=== PATIENT | male | born 1945 | race Caucasian/White ===

== ENCOUNTER → 2022-09-08 | Outpatient (CLI) | payer MEDICARE, OTHER ==
--- NOTE | 2022-09-09 00:17 | CT ---
EXAMINATION TYPE: CT angio abd aorta w/Runoff CT DLP: 1752.8 mGycm, Automated exposure control for dose reduction was used. DATE OF EXAM: 09/08/2022 3:27 PM COMPARISON: None CLINICAL INDICATION:Male, 76 years old with history of Z95.820; Wound left groin TECHNIQUE: Multiple thin slice sub-millimeter images were obtained through the abdomen, pelvis, and l ower extremities after administration of contrast. 3-D reconstructed images and maximum intensity pr ojection images were obtained of the abdomen, pelvis, and lower extremities. CT Contrast: Contrast used:100 cc mL of Isovue 370 with IV Contrast, Oral contrast used: None FINDINGS: CTA Abdomen and pelvis: The abdominal aorta does not demonstrate aneurysmal dilatation. Atherosclero tic plaquing is identified within the abdominal aorta. The origins of the superior mesenteric artery , renal arteries, inferior mesenteric artery, and celiac axis are patent. The iliac vessels are norm al in morphology. Mild atherosclerosis at the origin of the superior mesenteric artery and bilateral renal arteries. There is a patent right common iliac artery stent graft. The left external iliac terry ry is occluded. A stent graft is in place and is also included. There is a femoral-femoral bypass gra ft which is patent. There is phlegmonous change around the surgery site of the left common femoral ar soni near the femoral femoral bypass graft insertion. CTA Lower extremities: Right: The common femoral and superficial femoral arteries are patent. There is moderate to severe at herosclerotic plaque along the course of the arterial vasculature. There is a a stent graft in the mi ddle portion of the superficial femoral artery which is patent. Scattered areas of at least 70% steno sis along the course of the superficial femoral artery. The visualized popliteal artery is patent. Th ere is at least 50% stenosis at the adductor hiatus. The anterior and posterior tibial arteries are p atent. The distal portion of the anterior tibial artery is diminutive as it crosses the ankle. Both a nterior posterior tibial arteries cross the ankle joint. The peroneal artery is diminutive and pain. Left: The common femoral artery is patent. The unga superficial femoral artery is occluded with brien nt graft also occluded. Bypass graft extending from the proximal leg extending to the obturator arter y is patent. There is high-grade stenosis at the level of the popliteal artery just past the anastomo tic site of at least 50-70%. There is a diminutive appearance of the anterior tibial artery with mini mal flow visualized distally. The posterior tibial artery is patent. The peroneal artery is not clear ly visualized and may be occluded. LOWER CHEST: No evidence of focal consolidation, pneumothorax or pleural effusion. LIVER: Unremarkable GALLBLADDER AND BILE DUCTS: Gallstones layering in the gallbladder lumen. PANCREAS: Unremarkable. SPLEEN: Unremarkable. ADRENAL GLANDS: Unremarkable. KIDNEYS AND URETERS: No evidence of hydronephrosis or renal calculus. The ureters are unremarkable. PELVIS BLADDER: Unremarkable REPRODUCTIVE: Unremarkable. ABDOMEN & PELVIS STOMACH AND BOWEL: No evidence of bowel obstruction. Scattered colonic diverticula. PERITONEUM: No evidence of pneumoperitoneum or free fluid. MUSCULOSKELETAL: No acute osseous abnormalities LYMPH NODES: No gross evidence for lymphadenopathy. SOFT TISSUE/ABDOMINAL WALL: Unremarkable IMPRESSION: Abdomen: 1. 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 2. Patent right common iliac artery stent graft. 3. Patent femoral-femoral bypass graft. 4. Colonic diverticulosis. 5. Cholelithiasis. Left: 1. Soft tissue change around the left femoral bypass graft insertion to the left common femoral terry ry/superficial femoral artery bypass graft. Findings may represent retained correlate with any clinic al symptoms for signs of infection. 2. Occluded unga left superficial femoral artery and superficial femoral artery stent graft. 3. High-grade stenosis of the anastomotic site of the superficial femoral artery stent graft in the popliteal artery of at least 50-70%. 4. Diminutive appearance of the anterior tibial artery. 5. The posterior tibial artery crosses the ankle. 6. Diminutive peroneal artery. Right: 1. Scattered atherosclerosis of the superficial femoral artery with stent graft in place and patent. There is areas of high-grade at least 70% stenosis along the course of the superficial femoral arter y. 2. Diminutive distal portion and anterior tibial artery and peroneal artery. It is felt that the ant erior tibial artery does however crossing ankle. 3. Posterior tibial artery crosses the ankle.
== END | disposition home or self-care (01) ==
LOC: RADCTMAIN 13:28
PROVIDERS: ATTEND Surgery Vascular Surgery
DX: L98.491 Non-pressure chronic ulcer of skin of other sites limited to breakdown of skin (principal); E11.22 Type 2 diabetes mellitus with diabetic chronic kidney disease; I73.9 Peripheral vascular disease, unspecified; Z95.820 Peripheral vascular angioplasty status with implants and grafts
CPT/HCPCS: 82565; 84520; 75635; 36415; Q9967

== ENCOUNTER 2022-10-20 06:07 | Day surgery (SDC) | payer MEDICARE, OTHER ==
[2022-10-17 09:09] VITALS: BMI 25.4
[2022-10-20] MEDS ORDERED: SODIUM CHLORIDE 0.9% 1,000 ML IV ONE (07:00)
[2022-10-20 07:15] LABS: Glucose,Whole Blood 300 mg/dL (70-110)
[2022-10-20] MEDS ORDERED: ONDANSETRON 4 MG/2 ML VIAL ONE (07:21)
[2022-10-20] MEDS ORDERED: MIDAZOLAM 2 MG/2 ML VIAL ONE (07:24)
[2022-10-20] MEDS ORDERED: LIDOCAINE 2% INJ 20 MG/ML (2 ML VIAL) ONE (07:24)
[2022-10-20] MEDS ORDERED: SUCCINYLCHOLINE CHLORIDE 200 MG/10 ML VIAL IV ONE (07:24)
[2022-10-20] MEDS ORDERED: ePHEDrine 50 MG/ML 1 ML VIAL ONE (07:24)
[2022-10-20] MEDS ORDERED: fentaNYL (PF) 50 MCG/ML 2 ML AMP ONE (07:24)
[2022-10-20] MEDS ORDERED: PROPOFOL 10 MG/ML 20 ML VIAL IV ONE (07:24)
[2022-10-20] MEDS ORDERED: INSULIN ASPART (NovoLOG) 100 UNIT/ML VIAL SQ ONE (07:25)
[2022-10-20] MEDS ORDERED: ONDANSETRON 4 MG/2 ML VIAL IVP ONE (07:25)
[2022-10-20 07:29] LABS: Basophils % (A) 0 %; Eosinophils # (A) 0.3 k/uL (0-0.7); Eosinophils % (A) 6 %; HCT 43.1 % (39.0-53.0); HGB 14.2 gm/dL (13.0-17.5); Lymphocytes # (A) 0.9 k/uL (1.0-4.8); Lymphocytes % (A) 20 %; MCH 28.4 pg (25.0-35.0); MCV 86.2 fL (80.0-100.0); Mean Platelet Volume 8.7; Monocytes # (A) 0.3 k/uL (0-1.0); Monocytes % (A) 5 %; Neutrophils # (A) 3.1 k/uL (1.3-7.7); Neutrophils % (A) 67 %; Platelet Count 168 k/uL (150-450); RDW 15.3 % (11.5-15.5); WBC 4.7 k/uL (3.8-10.6)
[2022-10-20 07:53] LABS: Calcium 9.8 mg/dL (8.4-10.2); Potassium 4.2 mmol/L (3.5-5.1)
[2022-10-20] MEDS ORDERED: ceFAZolin 2 GM in SODIUM CHLORIDE 0.9% 500 ML 500 ML IRRIGATION ONE (08:05)
--- NOTE | 2022-10-20 08:24 | P.GSHP ---
History of Present Illness H&P Date: 10/20/22 Chief Complaint: chronic left groin wound 77 year old gentleman with history of aortobifemoral and femoral-femoral artery bypass graft several months ago at a different facility has had a chronic left groin wound for months that hasn't healed and also developed hypergranular tissue. He presents today for excision and debridement of the left groin wound. He denies any fevers, chills, chest pain or shortness of breath. He underwent CTA which demonstrated no evidence of pseudoaneurysm or abscess in the area. - Review of Systems All systems: negative Past Medical History Past Medical History: Cancer, Diabetes Mellitus, Deep Vein Thrombosis (DVT), GERD/Reflux, Hyperlipidemia, Hypertension, Skin Disorder, Sleep Apnea/CPAP/BIPAP Additional Past Medical History / Comment(s): Hx bladder cancer 10-12 yrs ago. Hx DVT left leg X7 and right leg X2 in September 2021. "Precanerous skin problems on head and arms, get flaky skin and sores at times, no problems right now". "No CPAP use in quite some time". History of Any Multi-Drug Resistant Organisms: None Reported Past Surgical History: Bladder Surgery Additional Past Surgical History / Comment(s): Left leg stents and bypass, right leg stents, cataracts removed. Past Anesthesia/Blood Transfusion Reactions: No Reported Reaction Past Psychological History: Anxiety, Depression Smoking Status: Former smoker Past Alcohol Use History: Daily Additional Past Alcohol Use History / Comment(s): Quit smoking 17 yrs ago. Drink s 7 beers and 5-6 mixed drinks weekly. Past Drug Use History: None Reported - Past Family History Father Family Medical History: Cancer Additional Family Medical History / Comment(s): Bladder cancer. Medications and Allergies Home Medications Medication Instructions Recorded Confirmed Type Ammonium Lactate Cream [Lac-Hydrin 1 applic TOPICAL BID PRN 10/17/22 10/20/22 History 12% Cream] Atorvastatin [Lipitor] 40 mg PO DAILY 10/17/22 10/20/22 History Empagliflozin [Jardiance] 25 mg PO DAILY 10/17/22 10/20/22 History Escitalopram Oxalate [Lexapro] 20 mg PO DAILY 10/17/22 10/20/22 History Fenofibric Acid (Choline) 135 mg PO DAILY 10/17/22 10/20/22 History [Trilipix] Ginkgo Biloba (Unknown Dose) 1 tab PO DAILY 10/17/22 10/20/22 History Insulin Aspart [NovoLOG Flexpen] 8 units SQ TID-W/MEALS 10/17/22 10/20/22 History Insulin Detemir (Levemir) [Levemir] 24 unit SQ HS 10/17/22 10/20/22 History Losartan Potassium [Cozaar] 100 mg PO DAILY 10/17/22 10/20/22 History Multivitamins, Thera [Multivitamin 1 tab PO DAILY 10/17/22 10/20/22 History (formulary)] Mv-Mn/Om3/Dha/Epa/Fish/Lut/Eligio 1 each PO DAILY 10/17/22 10/20/22 History [Ocuvite Adult 50 Plus Softgel] [place]-3/Dha/Epa/Fish Oil [Fish Oil 1 each PO DAILY 10/17/22 10/20/22 History 1,000 mg Softgel] Omeprazole Magnesium [PriLOSEC OTC] 20 mg PO DAILY 10/17/22 10/20/22 History Ozempic (Unknown Dose) 1 dose SQ CRAIG 10/17/22 10/20/22 History Rivaroxaban [Xarelto] 15 mg PO DAILY 10/17/22 10/20/22 History Vitamin E (Unknown Dose) 1 tab PO DAILY 10/17/22 10/20/22 History atenoloL 100 mg PO DAILY 10/17/22 10/20/22 History fluorouraciL [Efudex] 1 applic TOPICAL DIRECTED PRN 10/17/22 10/20/22 History Allergies Allergy/AdvReac Type Severity Reaction Status Date / Time chlorhexidine Allergy Itching Verified 10/20/22 06:48 morphine Allergy Anxiety Verified 10/20/22 06:48 Surgical - Exam Vital Signs Temp Pulse Resp BP Pulse Ox 97.4 F L 65 16 165/78 97 10/20/22 07:15 10/20/22 07:15 10/20/22 07:15 10/20/22 07:15 10/20/22 07:15 left groin hypergranular tissue at the inferior aspect of the previous incision. No drainage. - General well developed, well nourished, no distress - Eyes PERRL - ENT normal pinna - Neck no masses - Respiratory normal expansion, normal respiratory effort - Cardiovascular Rhythm: regular - Abdomen Abdomen: soft, non tender - Genitourinary normal penis with no external lesions - Neurologic normal coordination, normal sensation - Musculoskeletal normal gait - Psychiatric oriented to time, oriented to person, oriented to place, speech is normal Results - Labs 10/20/22 07:11 10/20/22 07:11 Abnormal Lab Results - Last 24 Hours (Table) 10/20/22 10/20/22 10/20/22 Range/Units 07:11 07:11 07:14 Lymphocytes # 0.9 L (1.0-4.8) k/uL Carbon Dioxide 31 H (22-30) mmol/L BUN 33 H (9-20) mg/dL Creatinine 1.35 H (0.66-1.25) mg/dL Glucose 307 H (74-99) mg/dL POC Glucose (mg/dL) 300 H (70-110) mg/dL Diabetes panel 10/20/22 Range/Units 07:11 Sodium 141 (137-145) mmol/L Potassium 4.2 (3.5-5.1) mmol/L Chloride 101 (98-107) mmol/L Carbon Dioxide 31 H (22-30) mmol/L BUN 33 H (9-20) mg/dL Creatinine 1.35 H (0.66-1.25) mg/dL Glucose 307 H (74-99) mg/dL Calcium 9.8 (8.4-10.2) mg/dL Calcium panel 10/20/22 Range/Units 07:11 Calcium 9.8 (8.4-10.2) mg/dL Pituitary panel 10/20/22 Range/Units 07:11 Sodium 141 (137-145) mmol/L Potassium 4.2 (3.5-5.1) mmol/L Chloride 101 (98-107) mmol/L Carbon Dioxide 31 H (22-30) mmol/L BUN 33 H (9-20) mg/dL Creatinine 1.35 H (0.66-1.25) mg/dL Glucose 307 H (74-99) mg/dL Calcium 9.8 (8.4-10.2) mg/dL Adrenal panel 10/20/22 Range/Units 07:11 Sodium 141 (137-145) mmol/L Potassium 4.2 (3.5-5.1) mmol/L Chloride 101 (98-107) mmol/L Carbon Dioxide 31 H (22-30) mmol/L BUN 33 H (9-20) mg/dL Creatinine 1.35 H (0.66-1.25) mg/dL Glucose 307 H (74-99) mg/dL Calcium 9.8 (8.4-10.2) mg/dL Assessment and Plan Assessment: 1. Chronic left groin wound with hypergranular mass 2. History of aortobifemoral and fem-fem bypass 3. Claudication Plan: To OR for groin debridement and excision of mass
[2022-10-20 08:27] VITALS: TEMP 97
--- NOTE | 2022-10-20 08:30 | P.OP ---
Date of Procedure: 10/20/22 Preoperative Diagnosis: chronic left groin wound and mass Postoperative Diagnosis: Same Procedure(s) Performed: Left groin wound sharp debridement with excision of mass Anesthesia: ANDRE Surgeon: Meliton Crane Estimated Blood Loss (ml): 5 Pathology: other (Left groin skin and mass) Condition: stable Disposition: PACU Indications for Procedure: 77 year old male with history of aortobifemoral, fem-fem bypass who has had a chronic wound at the inferior aspect of his incision presents to the OR for debridement and excision of mass. Description of Procedure: After written and informed consent was obtained and all risks, benefits and complications were described the patient was brought to the operative suite and laid in a supine position. The area of the groin was prepped and draped in the usual sterile fashion. Antibiotics were given prior to incision. An incision was then created around the wound and dissection was carried down to the subcutaneous tissue and the mass was excised with electrocautery. There was a small stalk noted which was ligated. No bleeding was noted. The area was then irrigated with antibiotic solution and the incision was then closed in a 2 layer fashion. The skin was cleansed and dressings were placed. The patient tolerated the procedure well and was sent to PACU for recovery.
[2022-10-20 08:41] LABS: Glucose,Whole Blood 266 mg/dL (70-110)
[2022-10-20 08:58] VITALS: RESP 20
[2022-10-20 09:22] VITALS: BP 135/70; PULSE 58
== END 2022-10-20 09:41 | disposition home or self-care (01) ==
LOC: OR 06:07
PROVIDERS: ATTEND Surgery
DX: I97.89 Other postprocedural complications and disorders of the circulatory system, not elsewhere classified (principal); L02.214 Cutaneous abscess of groin; S31.109A Unspecified open wound of abdominal wall, unspecified quadrant without penetration into peritoneal cavity, initial encounter; I10 Essential (primary) hypertension; E78.5 Hyperlipidemia, unspecified; E11.36 Type 2 diabetes mellitus with diabetic cataract; E11.51 Type 2 diabetes mellitus with diabetic peripheral angiopathy without gangrene; K21.9 Gastro-esophageal reflux disease without esophagitis; G47.33 Obstructive sleep apnea (adult) (pediatric); F41.9 Anxiety disorder, unspecified; F32.A Depression, unspecified; Z85.51 Personal history of malignant neoplasm of bladder; Z86.718 Personal history of other venous thrombosis and embolism; Z87.891 Personal history of nicotine dependence; F10.20 Alcohol dependence, uncomplicated; Z79.84 Long term (current) use of oral hypoglycemic drugs; Z79.4 Long term (current) use of insulin; Z79.899 Other long term (current) drug therapy; Z79.01 Long term (current) use of anticoagulants; Z88.5 Allergy status to narcotic agent; Z88.8 Allergy status to other drugs, medicaments and biological substances
CPT/HCPCS: 88304; 80048; 85025; 20102; J2250; J0330; J0690; J2405; J3010; J2704; J2001

== ENCOUNTER 2023-02-23 07:30 | Inpatient (IN) | payer MEDICARE, OTHER ==
[2023-03-23] MEDS ORDERED: LIDOCAINE 1% (10MG/ML) FOR IV START INTRADERMA PRN (06:05)
[2023-03-23] MEDS ORDERED: droPERidol 5 MG/2 ML VIAL IVP ONE (06:05)
[2023-03-23] MEDS ORDERED: DEXAMETHASONE SOD PHOSPHATE 4 MG/ML 1 ML VIAL IV ONE (06:05)
[2023-03-23] MEDS ORDERED: ONDANSETRON 4 MG/2 ML VIAL IVP ONE (06:05)
[2023-03-23 06:42] LABS: Glucose,Whole Blood 229 mg/dL (70-110)
[2023-03-23] MEDS: LACTATED RINGERS 1,000 ML IV SCH (06:44)
[2023-03-23] MEDS ORDERED: fentaNYL (PF) 50 MCG/ML 2 ML AMP IV PRN (07:00)
[2023-03-23] MEDS ORDERED: INSULIN ASPART (NovoLOG) 100 UNIT/ML VIAL SQ ONE (07:00)
[2023-03-23] MEDS ORDERED: MIDAZOLAM HCL 10 MG/10 ML VIAL IVP ONE (07:10)
[2023-03-23] MEDS ORDERED: MIDAZOLAM 2 MG/2 ML VIAL IVP ONE (07:16)
[2023-03-23] MEDS ORDERED: HEPARIN SODIUM,PORCINE 10,000 UNIT/ML 1 ML VIAL ONE (07:30)
[2023-03-23] MEDS ORDERED: fentaNYL (PF) 50 MCG/ML 2 ML AMP ONE (07:30)
[2023-03-23] MEDS ORDERED: HYDROmorphone (PF) 1 MG/ML ONE (07:30)
[2023-03-23] MEDS ORDERED: HEPARIN SODIUM,PORCINE 5,000 UNIT/ML 1 ML VIAL ONE (07:30)
[2023-03-23] MEDS ORDERED: NEOSTIGMINE 1 MG/ML 10 ML VIAL ONE (07:30)
[2023-03-23] MEDS ORDERED: LIDOCAINE 1% INJ 10MG/ML (20 ML MDV) ONE (07:30)
[2023-03-23] MEDS ORDERED: SUCCINYLCHOLINE CHLORIDE 200 MG/10 ML VIAL IV ONE (07:30)
[2023-03-23] MEDS ORDERED: PROPOFOL 10 MG/ML 20 ML VIAL IV ONE (07:30)
[2023-03-23] MEDS ORDERED: GLYCOPYRROLATE 0.2 MG/ML 2 ML VIAL ONE (07:30)
[2023-03-23] MEDS ORDERED: ROCURONIUM 10 MG/ML (5 ML VIAL) IV ONE (07:30)
[2023-03-23] MEDS ORDERED: PHENYLEPHRINE-0.9% NACL SYG 1,000 MCG/10 ML SYRINGE ONE (07:30)
--- NOTE | 2023-03-23 07:31 | P.GSHP ---
History of Present Illness H&P Date: 03/23/23 Chief Complaint: left groin infection 77 year old male with history of left external iliac occlusion, fem-fem and left fem-popliteal artery bypass at another facility who has had drainage from the left groin for the last several months. He had episodes of thrombosis and open revascularization which ultimately never healed. Due to the persistent drainage he was treated with antibiotics for weeks without any improvement. He was taken back to the operating room for washout and closure but this opened once again and he still has a persistent draining sinus tract. CT imaging was obtained demonstrating patent bypasses but inflammation at the groin site with tract noted. He denies any fevers, chills, chest pain or shortness of breath. He states he can't do this forever and wants the groin fixed. - Review of Systems All systems: negative (what is mentioned in the PMH or HPI) Past Medical History Past Medical History: Cancer, Diabetes Mellitus, Deep Vein Thrombosis (DVT), GERD/Reflux, Hyperlipidemia, Hypertension, Skin Disorder, Sleep Apnea/CPAP/BIPAP, Vascular Disorder Additional Past Medical History / Comment(s): Current L groin infection, PAD, R lower extremity pain/claudication, recent "skipped heart beat"/states sent to cardiology for surgical clearance for this reason, IDDM, bladder cancer 10-12 yrs ago. Hx DVT left leg X7 and right leg X2 in September 2021, skin cancer with removal, get flakey skin and sores at times," no problems right now". "No CPAP use in quite some time". History of Any Multi-Drug Resistant Organisms: None Reported Past Surgical History: Bladder Surgery Additional Past Surgical History / Comment(s): Angiograms, multiple vascular surgeries bilateral legs including fem/fem bypass, fem/pop bypass with revision, R iliac stent, thrombectomy, cataract removals. Past Anesthesia/Blood Transfusion Reactions: No Reported Reaction Past Psychological History: Anxiety, Depression Smoking Status: Former smoker Past Alcohol Use History: Daily Additional Past Alcohol Use History / Comment(s): Pt started smoking in 1960 and quit 2006. Pt drinks beer, vodka and whiskey, one drink a day. Past Drug Use History: None Reported - Past Family History Father Family Medical History: Cancer Additional Family Medical History / Comment(s): Bladder cancer. Medications and Allergies Home Medications Medication Instructions Recorded Confirmed Type Atorvastatin [Lipitor] 40 mg PO DAILY 10/17/22 03/23/23 History Empagliflozin [Jardiance] 25 mg PO DAILY 10/17/22 03/23/23 History Escitalopram Oxalate [Lexapro] 20 mg PO DAILY 10/17/22 03/23/23 History Fenofibric Acid (Choline) 135 mg PO DAILY 10/17/22 03/23/23 History [Trilipix] Ginkgo Biloba (Unknown Dose) 1 tab PO DAILY 10/17/22 03/18/23 History Insulin Aspart [NovoLOG Flexpen] 8 units SQ TID-W/MEALS 10/17/22 03/23/23 History Insulin Detemir (Levemir) [Levemir] 35 unit SQ HS 10/17/22 03/23/23 History Losartan Potassium [Cozaar] 100 mg PO DAILY 10/17/22 03/23/23 History Multivitamins, Thera [Multivitamin 1 tab PO DAILY 10/17/22 03/18/23 History (formulary)] Mv-Mn/Om3/Dha/Epa/Fish/Lut/Eligio 1 each PO HS 10/17/22 03/18/23 History [Ocuvite Adult 50 Plus Softgel] [place]-3/Dha/Epa/Fish Oil [Fish Oil 1 each PO HS 10/17/22 03/18/23 History 1,000 mg Softgel] Omeprazole Magnesium [PriLOSEC OTC] 20 mg PO DAILY 10/17/22 03/23/23 History Ozempic (Unknown Dose) 1 dose SQ CRAIG 10/17/22 03/18/23 History Rivaroxaban [Xarelto] 15 mg PO DAILY 10/17/22 03/23/23 History Vitamin E (Unknown Dose) 1 tab PO QAM 10/17/22 03/18/23 History atenoloL 100 mg PO QAM 10/17/22 03/23/23 History Allergies Allergy/AdvReac Type Severity Reaction Status Date / Time chlorhexidine Allergy Itching Verified 03/23/23 06:11 morphine Allergy Anxiety Verified 03/23/23 06:11 Surgical - Exam Vital Signs Temp Pulse Resp BP Pulse Ox 98.0 F 74 16 141/66 97 03/23/23 06:38 03/23/23 06:38 03/23/23 06:38 03/23/23 06:38 03/23/23 06:38 - General well developed, well nourished, no distress - Eyes PERRL, normal ocular movement - ENT normal pinna - Neck no masses - Respiratory normal expansion, normal respiratory effort - Cardiovascular Rhythm: regular - Abdomen Abdomen: soft, non tender - Neurologic normal coordination, normal sensation - Musculoskeletal normal gait - Psychiatric oriented to time, oriented to person, oriented to place, speech is normal left groin with small persistent wound with turbid fluid output. Erythema noted left groin. palpable femoral pulse on the right. Palpable pulse in bypasses and left DP. Results - Labs Abnormal Lab Results - Last 24 Hours (Table) 03/23/23 Range/Units 06:40 POC Glucose (mg/dL) 229 H (70-110) mg/dL Assessment and Plan Assessment: Chronic left groin wound History of femoral-femoral and left femoral-popliteal bypass with PTFE graft Left external iliac occlusion Claudication with history of limb ischemia Plan: Long discussion had with the patient about options. Due to the PTFE grafts in place and persistent wound it is likely the grafts are chronically infected and will require explantation and revision. This is a high risk procedure and could cause ischemia to the leg which the patient understands and is agreeable. He may require complete revision and replacement of bypasses as well as possible iliac to popliteal bypass. To OR today.
--- NOTE | 2023-03-23 08:23 | XR ---
EXAMINATION TYPE: XR chest 1V portable DATE OF EXAM: 03/23/2023 7:41 AM COMPARISON: None TECHNIQUE: XR chest 1V portable Portable AP radiograph of the chest. CLINICAL INDICATION:Male, 77 years old with history of CENTRAL LINE PLACEMENT; FINDINGS: Lungs/Pleura: There is no evidence of pleural effusion, focal consolidation, or pneumothorax. Pulmonary vascularity: Unremarkable. Heart/mediastinum: Cardiomediastinal silhouette is unremarkable. Musculoskeletal: No acute osseous pathology. Other findings: None Lines/Tubes: Right internal jugular central venous catheter with distal tip at the low SVC. IMPRESSION: Right internal jugular central venous catheter with distal tip at the low SVC. No pneumothorax.
[2023-03-23] MEDS ORDERED: GELATIN SPONGE,ABSORB (LARGE) 1 EACH SPONGE TOPICAL ONE (09:21)
[2023-03-23] MEDS ORDERED: THROMBIN (BOVINE) 5,000 UNIT VIAL TOPICAL ONE (09:21)
[2023-03-23 09:45] LABS: Glucose,Whole Blood 229 mg/dL (70-110)
--- NOTE | 2023-03-23 10:50 | P.ANPRN ---
Procedure Note - Anesthesia - Invasive Line Right Central Line Time Out Performed: Yes ([id number]) Date of Procedure: 03/23/23 Time of Procedure: 07:11 Location of Patient: PreOp Preparation: Sterile Prep, Sterile Dressing Central Line Location: Internal Jugular (right double lumen IJ central line) Ultrasound Used: Yes Purpose - Visualization and Identification of Vasculature: Yes Needle Guage: 18g angio Image Stored and Saved: Yes Narrative: Central line placement per sterile protocol utilized. sterile protocol. +angio +cvp +jwire +uneventful dilation and introduction right IJ RANJEET. Lumens bled and flushed. no PTX
[2023-03-23] MEDS ORDERED: DEXTROSE 5%-LACTATED RINGERS 1,000 ML IV ONE (11:14)
[2023-03-23] MEDS ORDERED: HEPARIN SODIUM,PORCINE 10,000 UNIT in LACTATED RINGERS 1,000 ML IRRIGATION ONE (11:15)
[2023-03-23] MEDS ORDERED: LACTATED RINGERS 1,000 ML IV ONE (14:00)
--- NOTE | 2023-03-23 15:17 | P.OP ---
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 History of fem-fem and left fem-popliteal bypass Left external iliac artery occlusion Postoperative Diagnosis: same Procedure(s) Performed: Left groin exploration and explantation of infected portion of femoral-femoral and left femoral-popliteal bypass graft Revision of femoral-femoral and left femoral-popliteal bypass with cryovein Open thrombectomy of fem-fem and fem-popliteal bypass grafts Anesthesia: GETA Surgeon: Meliton Crane Template Reproduction Technician #1: Jose David Garzon Estimated Blood Loss (ml): 200 Pathology: other (infected portion of grafts) Condition: stable Disposition: PACU Indications for Procedure: 77 year old gentleman with history of fem-fem and left femoral popliteal artery bypass whom has been dealing with drainage and infection of the left groin presents today for revision of bypasses with cryovein graft. Operative Findings: Infected anastomoses in the left groin at the femoral artery with appearance of pseudoaneurysm Description of Procedure: After written and informed consent was obtained from the patient and all risks, benefits and complications were described the patient was brought to the ope rative suite and laid in a supine position. The area of the abdomen, groins and left lower extremity were prepped and draped in the usual sterile fashion. A timeout was performed in usual fashion and antibiotics were given prior to incision. A small incision was then created overlying the suprapubic area over the fem-fem bypass and dissection was carried down to the graft and the graft was controlled with a vessel loop. Attention was then placed to the fem- popliteal graft and a small incision was created at the medial thigh and the graft was located and dissected free and controlled with a vessel loop. Once proximal and distal control was obtained attention was then placed to the left groin. A vertical incision was then created and carried around the wound area and dissection was carried down to the femoral artery with electrocautery. Dense scar tissue was encountered and meticulous dissection was performed to the bypasses. The bypass grafts were then dissected free to the [place] femoral artery as well as to the proximal and distal aspects of the grafts which appeared to be well encorporated. The proximal and distal bypasses were then clamped after patient was given heparin and followed with ACTs to maintain above 200's. The anastomosis at the femoral artery was lifted off the vessel and appeared to have an old pseudoaneurysm that was infected with purulent fluid expressed. The graft was then dissected off the femoral artery and the portions of the grafts were ligated and resected and sent to pathology. The graft was dissected back to the previous incisions out of the infected field and were resected. The femoral artery did have some minimal back bleeding from small branches and these were ligated and the femoral artery was sutured closed with 5-0 Prolene suture. Once hemostasis was controlled and the area was irrigated with antibiotic solution attention was then placed to reconstruction of the bypass. A [place] catheter was then placed retrograde into the fem-fem bypass remnant and good pulsatile bleeding was noted without any thrombus removed. The graft was then heparinized. A cryovein 7mm in diameter was then prepped in the usual fashion and an end to end anastomosis from the remnant aspect of the fem- fem bypass was then performed with 6-0 Prolene suture in a running fashion at the previous suprapubic site away from the infected groin. Once anastomosis was completed the graft was tunneled to the proximal aspect of the femoral-popliteal graft remnant. The [place] catheter was placed distally and thrombus was removed and the vessel was then heparinized. End to end anastomosis was then created with 6-0 Prolene suture in a running fashion. All control was released and good pulse was noted in the bypass and to the PT. The areas were irrigated with antibiotic solution and incisions were closed in multilayer fashion. The skin was cleansed and dressings placed, Prevena for the groin and 4x4 and Tagaderm for the incisions. He tolerated the procedure well and was sent to PACU for recovery.
[2023-03-23 15:52] LABS: Glucose,Whole Blood 228 mg/dL (70-110)
--- NOTE | 2023-03-23 17:07 | P.PCN ---
Date of Procedure: 03/23/23 Preoperative Diagnosis: Urethral stricture Postoperative Diagnosis: Same Procedure(s) Performed: Insertion of Ruth catheter Anesthesia: ANDRE Surgeon: Augusto Sin Estimated Blood Loss (ml): 0 Pathology: none sent Condition: stable Disposition: no change Indications for Procedure: The patient is a 77-year-old white male with a reported history of bladder cancer. He is scheduled to undergo explantation/replacement of an infected left femoral artery graft. Attempts to place a Ruth catheter preoperatively were unsuccessful. Operative Findings: Distal penile urethral stricture. Description of Procedure: The patient was supine and under general anesthesia. The penis was prepped and draped sterilely. A 16-Luxembourger catheter could only be advanced several centimeters, so I obtained a 12-Luxembourger catheter and was able to advance that catheter through an area of resistance which likely represented a distal penile urethral stricture and into the bladder. Approximately 300 mL of clear yellow urine drained. The catheter may be removed when no longer medically needed.
[2023-03-23] MEDS ORDERED: DEXTROSE 50% SYRINGE 50 ML IVP PRN ×2 (17:48)
--- NOTE | 2023-03-23 17:59 | P.CONS ---
History of Present Illness - Reason for Consult Consult date: 03/23/23 Medical management Requesting physician: Meliton Crane - Chief Complaint Left groin infection with surgery - History of Present Illness This is a pleasant [address] Otis Jones. Chronic stable medical conditions include diabetes, GERD, hypertension, hyperlipidemia, obstructive sleep apnea, PAD, DVT of the left leg and right leg in 2021,. Does not use CPAP. Anxiety depression. 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 Patient underwent open thrombectomy and revision of the same by Dr. Crane. Estimated blood loss 200 mL. Postprocedure patient was seen in the recovery room. Tired but able to answer questions. Pain control. No chest pain no shortness of breath. Provena for wound care was applied. Review of systems: GEN.: Tired EYES: None HEENT: None NECK: None RESPIRATORY: None CARDIOVASCULAR: None GASTROINTESTINAL: None GENITOURINARY: None MUSCULOSKELETAL: Some joint pains LYMPHATICS: None HEMATOLOGICAL: None PSYCHIATRY: None NEUROLOGICAL: None Social history: Patient smoked from 1961 through 2006. Drinks one drink a day. Lives alone. Physical examination: VITAL SIGNS: 97, 75, 16, 167/63, 98% on 2 L GENERAL: BMI 25.7, declining bed awake comfortable. EYES: Pupils equal. Conjunctiva normal. HEENT: External appearance of nose and ears normal, oral cavity grossly normal. NECK: JVD not raised; masses not palpable. HEART: First and second heart sounds are normal; no edema. LUNGS: Respiratory rate normal; clear to auscultation. ABDOMEN: Soft, nontender, liver spleen not palpable, no masses palpable. Provena on the left groin PSYCH: Alert and oriented x3; mood and affect normal. MUSCULOSKELETAL:No Clubbing/cyanosis;muscles-grossly intact. OA NEUROLOGICAL: Cranial nerves grossly intact; no facial asymmetry, power and sensation grossly intact. LYMPHATICS: No lymph nodes palpable in the axilla and neck INVESTIGATIONS, reviewed in the clinical context: 03/19/2023: White count 4.2 hemoglobin 13.8 platelets 160 potassium 4.3 BUN 28 creatinine 1.6 Assessment and plan: -Left groin exploration and explantation of infected portion of femoral-femoral and left femoral-popliteal bypass graft Revision of femoral-femoral and left femoral-popliteal bypass with cryovein Open thrombectomy of fem-fem and fem-popliteal bypass grafts Patient has a Provena in the left groin. -Essential hypertension Atenolol 100 mg day. Cozaar 100 mg a day. -Chronic multiple DVTs Xarelto 15 mg a day, resume when okay with surgery -Diabetes mellitus type 2, chronically insulin Resume Levemir 28 units subcu daily at bedtime tonight. NovoLog 8 units before meals 3 times a day with meals. -Depression, anxiety Lexapro 20 mg a day -Hyperlipidemia Lipitor 40 mg daily -GERD Prilosec 20 mg a day Care was discussed with the patient. Questions answered. Resume Xarelto when okay with Dr. Crane. IV Ancef per Dr. Crane. Thank you Dr. Crane Past Medical History Past Medical History: Cancer, Diabetes Mellitus, Deep Vein Thrombosis (DVT), GERD/Reflux, Hyperlipidemia, Hypertension, Skin Disorder, Sleep Apnea/CPAP/BIPAP, Vascular Disorder Additional Past Medical History / Comment(s): Current L groin infection, PAD, R lower extremity pain/claudication, recent "skipped heart beat"/states sent to cardiology for surgical clearance for this reason, IDDM, bladder cancer 10-12 yrs ago. Hx DVT left leg X7 and right leg X2 in September 2021, skin cancer with removal, get flakey skin and sores at times," no problems right now". "No CPAP use in quite some time". History of Any Multi-Drug Resistant Organisms: None Reported Past Surgical History: Bladder Surgery Additional Past Surgical History / Comment(s): Angiograms, multiple vascular surgeries bilateral legs including fem/fem bypass, fem/pop bypass with revision, R iliac stent, thrombectomy, cataract removals. Past Anesthesia/Blood Transfusion Reactions: No Reported Reaction Past Psychological History: Anxiety, Depression Smoking Status: Former smoker Past Alcohol Use History: Daily Additional Past Alcohol Use History / Comment(s): Pt started smoking in 1960 and quit 2006. Pt drinks beer, vodka and whiskey, one drink a day. Past Drug Use History: None Reported - Past Family History Father Family Medical History: Cancer Additional Family Medical History / Comment(s): Bladder cancer. Medications and Allergies Home Medications Medication Instructions Recorded Confirmed Type Atorvastatin [Lipitor] 40 mg PO DAILY 10/17/22 03/23/23 History Empagliflozin [Jardiance] 25 mg PO DAILY 10/17/22 03/23/23 History Escitalopram Oxalate [Lexapro] 20 mg PO DAILY 10/17/22 03/23/23 History Fenofibric Acid (Choline) 135 mg PO DAILY 10/17/22 03/23/23 History [Trilipix] Ginkgo Biloba (Unknown Dose) 1 tab PO DAILY 10/17/22 03/18/23 History Insulin Aspart [NovoLOG Flexpen] 8 units SQ TID-W/MEALS 10/17/22 03/23/23 History Insulin Detemir (Levemir) [Levemir] 35 unit SQ HS 10/17/22 03/23/23 History Losartan Potassium [Cozaar] 100 mg PO DAILY 10/17/22 03/23/23 History Multivitamins, Thera [Multivitamin 1 tab PO DAILY 10/17/22 03/18/23 History (formulary)] Mv-Mn/Om3/Dha/Epa/Fish/Lut/Eligio 1 each PO HS 10/17/22 03/18/23 History [Ocuvite Adult 50 Plus Softgel] [place]-3/Dha/Epa/Fish Oil [Fish Oil 1 each PO HS 10/17/22 03/18/23 History 1,000 mg Softgel] Omeprazole Magnesium [PriLOSEC OTC] 20 mg PO DAILY 10/17/22 03/23/23 History Ozempic (Unknown Dose) 1 dose SQ CRAIG 10/17/22 03/18/23 History Rivaroxaban [Xarelto] 15 mg PO DAILY 10/17/22 03/23/23 History Vitamin E (Unknown Dose) 1 tab PO QAM 10/17/22 03/18/23 History atenoloL 100 mg PO QAM 10/17/22 03/23/23 History Allergies Allergy/AdvReac Type Severity Reaction Status Date / Time chlorhexidine Allergy Itching Verified 03/23/23 06:11 morphine Allergy Anxiety Verified 03/23/23 06:11 Physical Exam Vitals: Vital Signs Temp Pulse Pulse Resp BP BP BP 03/23/23 17:00 79 16 147/66 03/23/23 16:30 85 16 158/67 03/23/23 16:00 78 16 169/64 147/76 03/23/23 15:36 78 16 170/65 158/74 03/23/23 15:21 71 16 129/60 03/23/23 15:06 75 16 167/63 138/62 03/23/23 14:51 79 16 176/69 126/61 03/23/23 14:36 78 16 176/60 137/64 03/23/23 14:21 78 16 176/60 152/68 03/23/23 14:06 73 16 171/73 149/67 03/23/23 13:51 77 16 176/69 143/65 03/23/23 13:36 75 16 174/64 148/68 03/23/23 13:21 72 16 178/63 147/73 03/23/23 13:06 75 14 174/64 158/70 03/23/23 12:51 97.0 F L 79 14 115/69 03/23/23 07:34 77 16 145/62 03/23/23 06:38 98.0 F 74 16 141/66 136/68 Pulse Ox 03/23/23 17:00 99 03/23/23 16:30 99 03/23/23 16:00 99 03/23/23 15:36 99 03/23/23 15:21 99 03/23/23 15:06 98 03/23/23 14:51 99 03/23/23 14:36 98 03/23/23 14:21 97 03/23/23 14:06 98 03/23/23 13:51 99 03/23/23 13:36 100 03/23/23 13:21 98 03/23/23 13:06 100 03/23/23 12:51 99 03/23/23 07:34 100 03/23/23 06:38 97 Intake and Output 03/23/23 03/23/23 03/23/23 06:59 14:59 22:59 Intake Total 200 2452 Output Total 1175 Balance 200 1277 Intake: IV 200 2452 Output: Urine 975 Estimated Blood Loss 200 Other: Weight 78.8 kg Results Labs: Abnormal Lab Results - Last 24 Hours (Table) 03/23/23 03/23/23 03/23/23 Range/Units 06:40 09:44 15:49 POC Glucose (mg/dL) 229 H 229 H 228 H (70-110) mg/dL
[2023-03-23] MEDS: SODIUM CHLORIDE 0.9% 1,000 ML IV SCH (18:04)
[2023-03-23] MEDS: INSULIN ASPART (NovoLOG) 100 UNIT/ML VIAL SQ SCH (18:06)
[2023-03-23] MEDS: LOSARTAN 50 MG TAB PO SCH (18:06)
[2023-03-23 18:09] LABS: Glucose,Whole Blood 190 mg/dL (70-110)
[2023-03-23 20:35] LABS: Glucose,Whole Blood 205 mg/dL (70-110)
[2023-03-23] MEDS ORDERED: INSULIN DETEMIR (LEVEMIR) 100 UNIT/ML SYR SQ SCH (21:00)
[2023-03-24] MEDS: SODIUM CHLORIDE 0.9% 1,000 ML IV SCH (00:22)
[2023-03-24] MEDS: LACTATED RINGERS 1,000 ML IV SCH (03:33)
[2023-03-24 06:08] LABS: Glucose,Whole Blood 153 mg/dL (70-110)
[2023-03-24] MEDS: INSULIN ASPART (NovoLOG) 100 UNIT/ML VIAL SQ SCH ×7 (06:44→17:07)
[2023-03-24] MEDS: LOSARTAN 50 MG TAB PO SCH (07:52)
[2023-03-24] MEDS: MULTIVITAMINS, THERA 1 EACH TAB PO SCH (07:53)
[2023-03-24] MEDS: PANTOPRAZOLE 40 MG TABLET PO SCH (07:53)
[2023-03-24] MEDS: ATORVASTATIN 40 MG TAB PO SCH (07:53)
[2023-03-24] MEDS: ESCITALOPRAM 20 MG TAB PO SCH (07:53)
[2023-03-24] MEDS: DAPAGLIFLOZIN PROPANEDIOL 10 MG TABLET PO SCH (07:53)
[2023-03-24] MEDS: FENOFIBRATE 160 MG TAB PO SCH (07:53)
[2023-03-24] MEDS: atenoloL 50 MG TAB PO SCH (07:53)
[2023-03-24 08:17] LABS: African American GFR (CKD) 60 (>60 ml/min/1.73 sqM); Anion Gap 11 mmol/L; Blood Urea Nitrogen 28 mg/dL (9-20); Calcium 9.2 mg/dL (8.4-10.2); Carbon Dioxide 25 mmol/L (22-30); Chloride 104 mmol/L (98-107); Glucose 121 mg/dL (74-99); Non-African American GFR(CKD) 52 (>60 ml/min/1.73 sqM); Potassium 3.7 mmol/L (3.5-5.1); Sodium 140 mmol/L (137-145)
--- NOTE | 2023-03-24 10:05 | P.PN ---
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 Revision of femoral-femoral and left femoral popliteal bypass with CryoVein. Open thrombectomy of fem-fem and fem-pop bypass grafts. Patient is seen sitting up in the chair, he ate breakfast. He denies any abdominal pain. He does have pain in the left groin. States left leg and foot pain improved. He is afebrile. He denies any shortness of breath, chest pain, abdominal pain, nausea or vomiting. The catheter was discontinued and patient has urinated 3-4 times. Patient had bowel movement this morning. Objective - Vital Signs Vital signs: Vital Signs Temp 96.5 F L 03/24/23 07:51 Pulse 90 03/24/23 07:51 Resp 16 03/24/23 07:51 BP 144/64 03/24/23 07:51 Pulse Ox 97 03/24/23 07:51 FiO2 Intake & Output 03/23/23 03/24/23 03/24/23 18:59 06:59 18:59 Intake Total 2452 450 Output Total 1175 100 Balance 1277 350 Intake: IV 2452 50 ceFAZolin 2 gm In Sodium 50 Chloride 0.9% 50 ml @ 100 mls/hr IVPB ONCE PRN Rx# :[id number] Oral 400 Output: Urine 975 100 Estimated Blood Loss 200 Other: Voiding Method Urinal # Voids 3 # Bowel Movements 1 - Exam General appearance: The patient is alert, oriented, appears in no acute distress. HET: Head is normocephalic and atraumatic. Pupils are equal and reactive. Neck: Supple. Heart: Regular. Lungs: Equal expansion, normal respiratory effort. Abdomen: Soft, nontender, nondistended. Extremities: Normal skin color and turgor. Left groin with Prevena dressing intact with good suction. Left medial thigh dressing clean dry and intact, with surrounding hematoma. Palpable PT pulse. Good capillary refill. Neurological: No focal deficits. Strength and sensation are grossly intact. - Labs CBC & Chem 7: 03/24/23 07:48 Labs: Abnormal Lab Results - Last 24 Hours (Table) 03/23/23 03/23/23 03/23/23 Range/Units 09:44 15:49 18:06 POC Glucose (mg/dL) 229 H 228 H 190 H (70-110) mg/dL 03/23/23 03/24/23 Range/Units 20:34 06:07 POC Glucose (mg/dL) 205 H 153 H (70-110) mg/dL Assessment and Plan Assessment: 1. 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 Revision of fem-fem and left fem-pop bypass with CryoVein and open thrombectomy of fem-fem and fem-pop bypass grafts 2. Hematoma left thigh 3. History of fem-fem and left fem-popliteal bypass 4. Left external iliac artery occlusion 5. Urethral stricture status post Ruth catheter placement per urology 6. Diabetes mellitus 7. Hypertension and hyperlipidemia 8. Obstructive sleep apnea without CPAP use Plan: 1. CBC and BMP ordered 2. Encourage ambulation 3. Keep Prevena dressing in place for 7 days 4. May discontinue central line 5. Pain medication as needed 6. Heart healthy diet 7. Anticipate discharge in the next 24-48 hours 8. Consult to medicine. Rest of medical management per primary medical team. The impression and plan of care has been dictated as directed. I performed a history and examination of this patient, discussed the same with the dictator. I agree with the dictator's note ,documented as a scribe. Any additional findings or plans will be noted.
[2023-03-24 11:29] LABS: Glucose,Whole Blood 308 mg/dL (70-110)
[2023-03-24 11:54] LABS: Basophils % (A) 0 %; Eosinophils # (A) 0.1 k/uL (0-0.7); Eosinophils % (A) 1 %; HCT 39.2 % (39.0-53.0); HGB 12.6 gm/dL (13.0-17.5); Lymphocytes # (A) 1.8 k/uL (1.0-4.8); Lymphocytes % (A) 25 %; MCH 28.9 pg (25.0-35.0); MCHC 32.2 g/dL (31.0-37.0); MCV 89.9 fL (80.0-100.0); Mean Platelet Volume 9.9; Monocytes # (A) 0.3 k/uL (0-1.0); Monocytes % (A) 4 %; Neutrophils % (A) 69 %; Platelet Count 172 k/uL (150-450); RBC 4.36 m/uL (4.30-5.90); RDW 14.3 % (11.5-15.5); WBC 7.3 k/uL (3.8-10.6)
[2023-03-24 15:35] LABS: Glucose,Whole Blood 307 mg/dL (70-110)
--- NOTE | 2023-03-24 19:26 | P.PN ---
Progress Note - Text Progress Note Date: 03/24/23 - Chief Complaint Left groin infection with surgery - History of Present Illness This is a pleasant [address] Otis Jones. Chronic stable medical conditions include diabetes, GERD, hypertension, hyperlipidemia, obstructive sleep apnea, PAD, DVT of the left leg and right leg in 2021,. Does not use CPAP. Anxiety depression. 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 Patient underwent open thrombectomy and revision of the same by Dr. Crane. Estimated blood loss 200 mL. Postprocedure patient was seen in the recovery room. Tired but able to answer questions. Pain control. No chest pain no shortness of breath. Provena for wound care was applied. March 24: Sitting up in a chair. Provena left groin. Some tenderness. M inimal output. Did tolerate her diet. Apt to bathroom slowly. Accu-Cheks running on the higher side. Increase Lantus and NovoLog Active Medications Atenolol (Atenolol 50 Mg Tab) 100 mg PO QAM [facility] Last Admin: 03/24/23 07:53 Dose: 100 mg Atorvastatin Calcium (Atorvastatin 40 Mg Tab) 40 mg PO DAILY [facility] Last Admin: 03/24/23 07:53 Dose: 40 mg Dapagliflozin (Dapagliflozin Propanediol 10 Mg Tablet) 10 mg PO DAILY [facility] Last Admin: 03/24/23 07:53 Dose: 10 mg Dextrose/Water (Dextrose 50% Syringe 50 Ml) 25 ml IVP PER PROTOCOL PRN; Protocol PRN Reason: Hypoglycemia Dextrose/Water (Dextrose 50% Syringe 50 Ml) 50 ml IVP PER PROTOCOL PRN; Protocol PRN Reason: Hypoglycemia Escitalopram Oxalate (Escitalopram 20 Mg Tab) 20 mg PO DAILY [facility] Last Admin: 03/24/23 07:53 Dose: 20 mg Fenofibrate (Fenofibrate 160 Mg Tab) 160 mg PO DAILY [facility] Last Admin: 03/24/23 07:53 Dose: 160 mg Lactated Ringer's (Lactated Ringers) 1,000 mls @ 20 mls/hr IV .Q24H [facility] Last Admin: 03/24/23 03:33 Dose: Not Given Insulin Aspart (Insulin Aspart (Novolog) 100 Unit/Ml Vial) 0 unit SQ AC-TID [facility]; Protocol Last Admin: 03/24/23 17:07 Dose: 8 unit Insulin Aspart (Insulin Aspart (Novolog) 100 Unit/Ml Vial) 8 unit SQ TID- W/MEALS [facility] Last Admin: 03/24/23 17:07 Dose: 8 unit Insulin Detemir (Insulin Detemir (Levemir) 100 Unit/Ml Syr) 35 unit SQ HS [facility] Lidocaine HCl (Lidocaine 1% (10mg/Ml) For Iv Start) 0.1 ml INTRADERMA PER PROTOCOL PRN PRN Reason: IV Start Losartan Potassium (Losartan 50 Mg Tab) 100 mg PO DAILY [facility] Last Admin: 03/24/23 07:52 Dose: 100 mg Multivitamins (Multivitamins, Thera 1 Each Tab) 1 each PO DAILY [facility] Last Admin: 03/24/23 07:53 Dose: 1 each Pantoprazole Sodium (Pantoprazole 40 Mg Tablet) 40 mg PO DAILY [facility] Last Admin: 03/24/23 07:53 Dose: 40 mg Social history: Patient smoked from 1961 through 2006. Drinks one drink a day. Lives alone. Physical examination: VITAL SIGNS: 99, 81, 16, 120/68, 97% room air GENERAL: Sitting up in a chair, comfortable EYES: Pupils equal. Conjunctiva normal. HEENT: External appearance of nose and ears normal, oral cavity grossly normal. NECK: JVD not raised; masses not palpable. HEART: First and second heart sounds are normal; no edema. LUNGS: Respiratory rate normal; clear to auscultation. ABDOMEN: Soft, nontender, liver spleen not palpable, no masses palpable. Pro vena on the left groin PSYCH: Alert and oriented x3; mood and affect normal. MUSCULOSKELETAL:No Clubbing/cyanosis;muscles-grossly intact. OA INVESTIGATIONS, reviewed in the clinical context: March 24: White count 7.3 hemoglobin 12.6 potassium 3.7 BUN 28 creatinine 1.3 to 03/19/2023: White count 4.2 hemoglobin 13.8 platelets 160 potassium 4.3 BUN 28 creatinine 1.6 Assessment and plan: -Left groin exploration and explantation of infected portion of femoral-femoral and left femoral-popliteal bypass graft Revision of femoral-femoral and left femoral-popliteal bypass with cryovein Open thrombectomy of fem-fem and fem-popliteal bypass grafts Provena in the left groin-decreased output. -Essential hypertension Atenolol 100 mg day. Cozaar 100 mg a day. -Chronic multiple DVTs Xarelto 15 mg a day, resume when okay with surgery -Diabetes mellitus type 2, chronically insulin Increase Levemir 35 units subcu daily at bedtime tonight. NovoLog 8 units before meals 3 times a day with meals. -Depression, anxiety Lexapro 20 mg a day -Hyperlipidemia Lipitor 40 mg daily -GERD Prilosec 20 mg a day Discussed with nurse-Resume Xarelto when okay with Dr. Crane. Adjust insulin dose. Activity as tolerated. Thank you Dr. Crane
[2023-03-24 19:58] LABS: Glucose,Whole Blood 123 mg/dL (70-110)
[2023-03-24] MEDS ORDERED: INSULIN DETEMIR (LEVEMIR) 100 UNIT/ML SYR SQ SCH (21:00)
[2023-03-25] MEDS: LACTATED RINGERS 1,000 ML IV SCH (04:26)
[2023-03-25 06:21] LABS: Glucose,Whole Blood 77 mg/dL (70-110)
[2023-03-25] MEDS: INSULIN ASPART (NovoLOG) 100 UNIT/ML VIAL SQ SCH ×4 (07:59→13:09)
[2023-03-25] MEDS: DAPAGLIFLOZIN PROPANEDIOL 10 MG TABLET PO SCH (08:42)
[2023-03-25] MEDS: atenoloL 50 MG TAB PO SCH (08:42)
[2023-03-25] MEDS: PANTOPRAZOLE 40 MG TABLET PO SCH (08:42)
[2023-03-25] MEDS: MULTIVITAMINS, THERA 1 EACH TAB PO SCH (08:42)
[2023-03-25] MEDS: LOSARTAN 50 MG TAB PO SCH (08:42)
[2023-03-25] MEDS: ESCITALOPRAM 20 MG TAB PO SCH (08:42)
[2023-03-25] MEDS: FENOFIBRATE 160 MG TAB PO SCH (08:42)
[2023-03-25] MEDS: ATORVASTATIN 40 MG TAB PO SCH (08:42)
[2023-03-25 08:59] LABS: HCT 33.1 % (39.0-53.0); MCH 29.3 pg (25.0-35.0); MCHC 33.2 g/dL (31.0-37.0); MCV 88.5 fL (80.0-100.0); Mean Platelet Volume 9.3; Platelet Count 131 k/uL (150-450); RBC 3.75 m/uL (4.30-5.90); WBC 6.5 k/uL (3.8-10.6)
[2023-03-25 10:46] VITALS: RESP 16
[2023-03-25 11:34] LABS: Glucose,Whole Blood 165 mg/dL (70-110)
[2023-03-25 12:23] VITALS: BP 126/70; PULSE 77; TEMP 98.2
--- NOTE | 2023-03-25 12:35 | P.DS ---
Providers Date of admission: 03/23/23 05:48 Expected date of discharge: 03/25/23 Attending physician: Meliton Crane DO Consults: 03/23/23 14:52 Consult Physician Routine Consulting Provider: Harjinder Banegas Consult Reason/Comments: Medical management s/p iliac graft explantation Do you want consulting provider notified?: Already Contacted Primary care physician: Otis Jones Hospital Course: 77-year-old male with history of peripheral arterial disease with chronic left groin infection with infected graft, history of fem-fem and left thumb popliteal bypass and left external iliac artery occlusion was scheduled for for revision of bypasses with CryoVein graft. He is postoperative day #2. Postop day #1 he was noted to have a small hematoma near the left thigh incision. Patient has been hemodynamically stable, he is been afebrile. WBC 6.5 Hemoglobin 11.0 platelet count 131. Patient has been bleeding and has had 2 bowel movements since surgery. She has been up and ambulating. States he does have some discomfort in his left groin however has not been requesting or needing any pain medication. Left lower extremity pain improved. Prevena dressing in place with good suction. It is warm with good capillary refill and palpable PT pulse. Patient is without any other complaints. Plan for discharge today. Exam General appearance: The patient is alert, oriented, appears in no acute distress. HET: Head is normocephalic and atraumatic. Pupils are equal and reactive. Neck: Supple. Heart: Regular. Lungs: Equal expansion, normal respiratory effort. Abdomen: Soft, nontender, nondistended. Extremities: Normal skin color and turgor. Left groin with Prevena dressing in place, left medial thigh with incision well approximated small hematoma to lateral aspect, soft. Palpable PT pulse. Good capillary refill. Neurological: No focal deficits. Strength and sensation are grossly intact. 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 May resume Xarelto. Activity and dressing discussed with patient. See discharge instructions for further detail. The impression and plan of care has been dictated as directed. I performed a history and examination of this patient, discussed the same with the dictator. I agree with the dictator's note ,documented as a scribe. Any additional findings or plans will be noted. Procedures: Left groin exploration and explantation of infected portion of femoral-femoral and left femoral-popliteal bypass graft Revision of femoral-femoral and left femoral-popliteal bypass with cryovein Open thrombectomy of fem-fem and fem-popliteal bypass grafts Plan - Discharge Summary Discharge Rx Participant: No New Discharge Prescriptions: New Amoxic-Pot Clav 875-125Mg [Augmentin 875-125] 1 tab PO BID 10 Days #20 tab Continue Insulin Detemir (Levemir) [Levemir] 35 unit SQ HS Rivaroxaban [Xarelto] 15 mg PO DAILY Multivitamins, Thera [Multivitamin (formulary)] 1 tab PO DAILY Ginkgo Biloba (Unknown Dose) 1 tab PO DAILY Omeprazole Magnesium [PriLOSEC OTC] 20 mg PO DAILY Empagliflozin [Jardiance] 25 mg PO DAILY atenoloL 100 mg PO QAM Atorvastatin [Lipitor] 40 mg PO DAILY Fenofibric Acid (Choline) [Trilipix] 135 mg PO DAILY Vitamin E (Unknown Dose) 1 tab PO QAM [place]-3/Dha/Epa/Fish Oil [Fish Oil 1,000 mg Softgel] 1 each PO HS Insulin Aspart [NovoLOG Flexpen] 8 units SQ TID-W/MEALS Mv-Mn/Om3/Dha/Epa/Fish/Lut/Eligio [Ocuvite Adult 50 Plus Softgel] 1 each PO HS Escitalopram Oxalate [Lexapro] 20 mg PO DAILY Ozempic (Unknown Dose) 1 dose SQ CRAIG Losartan Potassium [Cozaar] 100 mg PO DAILY Discharge Medication List Atorvastatin [Lipitor] 40 mg PO DAILY 10/17/22 [History] Empagliflozin [Jardiance] 25 mg PO DAILY 10/17/22 [History] Escitalopram Oxalate [Lexapro] 20 mg PO DAILY 10/17/22 [History] Fenofibric Acid (Choline) [Trilipix] 135 mg PO DAILY 10/17/22 [History] Ginkgo Biloba (Unknown Dose) 1 tab PO DAILY 10/17/22 [History] Insulin Aspart [NovoLOG Flexpen] 8 units SQ TID-W/MEALS 10/17/22 [History] Insulin Detemir (Levemir) [Levemir] 35 unit SQ HS 10/17/22 [History] Losartan Potassium [Cozaar] 100 mg PO DAILY 10/17/22 [History] Multivitamins, Thera [Multivitamin (formulary)] 1 tab PO DAILY 10/17/22 [History] Mv-Mn/Om3/Dha/Epa/Fish/Lut/Eligio [Ocuvite Adult 50 Plus Softgel] 1 each PO HS 10/17/22 [History] [place]-3/Dha/Epa/Fish Oil [Fish Oil 1,000 mg Softgel] 1 each PO HS 10/17/22 [History] Omeprazole Magnesium [PriLOSEC OTC] 20 mg PO DAILY 10/17/22 [History] Ozempic (Unknown Dose) 1 dose SQ CRAIG 10/17/22 [History] Rivaroxaban [Xarelto] 15 mg PO DAILY 10/17/22 [History] Vitamin E (Unknown Dose) 1 tab PO QAM 10/17/22 [History] atenoloL 100 mg PO QAM 10/17/22 [History] Amoxic-Pot Clav 875-125Mg [Augmentin 875-125] 1 tab PO BID 10 Days #20 tab 03/25/23 [Rx] Follow up Appointment(s)/Referral(s): Meliton Crane DO [STAFF PHYSICIAN] - 04/07/23 2:00 pm (Please make appointment for next 03/31/2023) Otis Jones MD [Primary Care Provider] - 1 Week Patient Instructions/Handouts: Peripheral Vascular Stent Placement (DC) Activity/Diet/Wound Care/Special Instructions: No driving for 7 days Avoid heavy lifting greater than 10 lbs , pushing, pulling, straining, flights of stairs for three days. Sponge bathe until left groin dressing removed. Then may shower but no tub baths or soaking until approved by surgeon. signs of infection ie: fever, rash, drainage from puncture site, swelling contact doctor or return to ER immediately. Heavy bleeding from incision site apply firm direct pressure and return to ER. Do not attempt to drive self. low sodium/low fat diet Keep left groin dressing in place until 03/30/2023 then may remove and discard Discharge Disposition: HOME SELF-CARE
--- NOTE | 2023-03-25 22:47 | P.PN ---
Progress Note - Text Progress Note Date: 03/25/23 - Chief Complaint Left groin infection with surgery - History of Present Illness This is a pleasant [address] Otis Jones. Chronic stable medical conditions include diabetes, GERD, hypertension, hyperlipidemia, obstructive sleep apnea, PAD, DVT of the left leg and right leg in 2021,. Does not use CPAP. Anxiety depression. 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 Patient underwent open thrombectomy and revision of the same by Dr. Crane. Estimated blood loss 200 mL. Postprocedure patient was seen in the recovery room. Tired but able to answer questions. Pain control. No chest pain no shortness of breath. Provena for wound care was applied. March 24: Sitting up in a chair. Provena left groin. Some tenderness. M inimal output. Did tolerate her diet. Apt to bathroom slowly. Accu-Cheks running on the higher side. Increase Lantus and NovoLog March 25: Patient doing well. Did ambulate. No new issues. Discussed with the patient. Follow-up with PCP upon discharge. Social history: Patient smoked from 196 through 2006. Drinks one drink a day. Lives alone. Physical examination: VITAL SIGNS: 98.2, 77, 16, 126/70, 94% room air GENERAL: comfortable EYES: Pupils equal. Conjunctiva normal. HEENT: External appearance of nose and ears normal, oral cavity grossly normal. NECK: JVD not raised; masses not palpable. HEART: First and second heart sounds are normal; no edema. LUNGS: Respiratory rate normal; clear to auscultation. ABDOMEN: Soft, nontender, liver spleen not palpable, no masses palpable. Provena on the left groin PSYCH: Alert and oriented x3; mood and affect normal. MUSCULOSKELETAL:No Clubbing/cyanosis;muscles-grossly intact. OA INVESTIGATIONS, reviewed in the clinical context: March 25: White count 6.5 hemoglobin 11 March 24: White count 7.3 hemoglobin 12.6 potassium 3.7 BUN 28 creatinine 1.3 to 03/19/2023: White count 4.2 hemoglobin 13.8 platelets 160 potassium 4.3 BUN 28 creatinine 1.6 Assessment and plan: -Left groin exploration and explantation of infected portion of femoral-femoral and left femoral-popliteal bypass graft Revision of femoral-femoral and left femoral-popliteal bypass with cryovein Open thrombectomy of fem-fem and fem-popliteal bypass grafts Provena in the left groin-decreased output. -Essential hypertension Atenolol 100 mg day. Cozaar 100 mg a day. -Chronic multiple DVTs Xarelto 15 mg a day, resume when okay with surgery -Diabetes mellitus type 2, chronically insulin Levemir 35 units subcu daily at bedtime tonight. NovoLog 8 units before meals 3 times a day with meals. -Depression, anxiety Lexapro 20 mg a day -Hyperlipidemia Lipitor 40 mg daily -GERD Prilosec 20 mg a day Discussed with the patient. Follow-up with PCP upon discharge. Thank you Dr. Crane
== END 2023-03-25 14:35 | disposition home or self-care (01) | DRG 253 ==
LOC: 2ORMAIN 03-23 05:48 → 3SCARD 03-23 16:25
PROVIDERS: ADMIT Surgery; ATTEND Surgery
DX: T82.7XXA Infection and inflammatory reaction due to other cardiac and vascular devices, implants and grafts, initial encounter (principal); I74.5 Embolism and thrombosis of iliac artery; E78.5 Hyperlipidemia, unspecified; E11.51 Type 2 diabetes mellitus with diabetic peripheral angiopathy without gangrene; F32.A Depression, unspecified; F41.9 Anxiety disorder, unspecified; G47.33 Obstructive sleep apnea (adult) (pediatric); I10 Essential (primary) hypertension; K21.9 Gastro-esophageal reflux disease without esophagitis; N35.919 Unspecified urethral stricture, male, unspecified site; M79.81 Nontraumatic hematoma of soft tissue; Z79.01 Long term (current) use of anticoagulants; Z79.4 Long term (current) use of insulin; Z79.84 Long term (current) use of oral hypoglycemic drugs; Z79.899 Other long term (current) drug therapy; Z85.51 Personal history of malignant neoplasm of bladder; Z80.52 Family history of malignant neoplasm of bladder; Z85.828 Personal history of other malignant neoplasm of skin; Z87.891 Personal history of nicotine dependence; Z88.5 Allergy status to narcotic agent; Z88.8 Allergy status to other drugs, medicaments and biological substances; Z86.718 Personal history of other venous thrombosis and embolism
CPT/HCPCS: 71045; 80048; 85025; 85027; 86850; 86900; 86901; 87070; 87075; 87205; 88300; 88304

== ENCOUNTER → 2023-03-19 | Outpatient (CLI) | payer MEDICARE, OTHER ==
[2023-03-19 09:23] LABS: INR 1.2 (<1.2); Partial Thromboplastin Time 26.3 sec (22.0-30.0); Prothrombin Time 12.2 sec (9.0-12.0)
[2023-03-19 16:37] LABS: HCT 42.5 % (39.6-50.0); HGB 13.8 d/dL (13.0-17.0); MCH 28.5 pg (27.0-32.0); MCHC 32.5 d/dL (32.0-37.0); MCV 87.8 FL (80.0-97.0); Mean Platelet Volume 11.3 FL (9.5-12.2); NRBC Per 100 WBC 0 X 10*3/uL (0.00-0.01); Platelet Count 160 X 10*3/uL (140-440); RBC 4.84 X 10*6/uL (4.40-5.60); RDW 13.6 % (11.5-14.5); WBC 4.26 X 10*3/uL (4.50-10.00)
[2023-03-19 16:49] LABS: ALT 20 U/L (10-49); AST 21 U/L (14-35); Albumin 4.4 d/dL (3.8-4.9); Albumin/Globulin Ratio 1.52 Ratio (1.60-3.17); Alkaline Phosphatase 42 U/L (41-126); Calcium 10.4 mg/dL (8.7-10.3); Carbon Dioxide 24.3 mmol/L (21.6-31.8); Chloride 102 mmol/L (96-109); Globulin 2.9 d/dL (1.6-3.3); Glucose 310 mg/dL (70-110); Potassium 4.3 mmol/L (3.5-5.5); Sodium 138 mmol/L (135-145); Total Bilirubin 0.5 mg/dL (0.3-1.2); Total Protein 7.3 d/dL (6.2-8.2)
== END | disposition home or self-care (01) ==
LOC: LABWHC1 08:27
PROVIDERS: ATTEND Internal Medicine
DX: E11.22 Type 2 diabetes mellitus with diabetic chronic kidney disease (principal); N18.9 Chronic kidney disease, unspecified; I73.9 Peripheral vascular disease, unspecified; Z79.01 Long term (current) use of anticoagulants
CPT/HCPCS: 36415; 80053; 85027; 85610; 85730

== ENCOUNTER 2023-07-10 07:07 | Day surgery (SDC) | payer MEDICARE, OTHER ==
[~2023-07-10 07:07] MED LIST: SODIUM CHLORIDE 0.9% 1,000 ML in EMPTY BAG 1 BAG IV ONE
[2023-07-10 07:49] LABS: Glucose,Whole Blood 118 mg/dL (70-110)
[2023-07-10 08:01] LABS: Basophils % (A) 1 %; Eosinophils # (A) 0.2 k/uL (0-0.7); Eosinophils % (A) 4 %; HCT 41.6 % (39.0-53.0); Lymphocytes % (A) 28 %; MCH 29.4 pg (25.0-35.0); MCHC 33.7 g/dL (31.0-37.0); MCV 87.2 fL (80.0-100.0); Mean Platelet Volume 8.6; Monocytes # (A) 0.2 k/uL (0-1.0); Monocytes % (A) 6 %; Neutrophils # (A) 2.1 k/uL (1.3-7.7); Neutrophils % (A) 58 %; Platelet Count 173 k/uL (150-450); RBC 4.77 m/uL (4.30-5.90); RDW 14.7 % (11.5-15.5); WBC 3.6 k/uL (3.8-10.6)
[2023-07-10 08:05] LABS: African American GFR (CKD) 40 (>60 ml/min/1.73 sqM); Anion Gap 6 mmol/L; Blood Urea Nitrogen 36 mg/dL (9-20); Calcium 10.1 mg/dL (8.4-10.2); Carbon Dioxide 28 mmol/L (22-30); Chloride 108 mmol/L (98-107); Glucose 117 mg/dL (74-99); Non-African American GFR(CKD) 35 (>60 ml/min/1.73 sqM); Potassium 3.9 mmol/L (3.5-5.1); Sodium 142 mmol/L (137-145)
[2023-07-10] MEDS ORDERED: SODIUM CHLORIDE 0.9% 500 ML 500 ML with niCARdipine 6.25 MG, NITROGLYCERIN-D5W PMX 0.05... IV ONE ×8 (08:44→10:11)
[2023-07-10] MEDS ORDERED: HEPARIN SODIUM 1,000 UN/ML (10ML VL) ONE (09:11)
[2023-07-10] MEDS: MIDAZOLAM 2 MG/2 ML VIAL IVP ONE ×4 (09:25→11:41)
[2023-07-10] MEDS: LIDOCAINE 1% INJ 10MG/ML (30 ML VIAL-PF) SQ ONE ×3 (09:30→11:59)
[2023-07-10] MEDS ORDERED: FLUMAZENIL 0.1 MG/ML 5 ML VIAL IVP ONE (09:48)
[2023-07-10] MEDS ORDERED: HEPARIN SODIUM 1,000 UN/ML (10ML VL) IVP ONE (09:50)
[2023-07-10] MEDS ORDERED: NITROGLYCERIN 1000MCG/10ML SYRINGE INTRAARTER ONE (11:09)
[2023-07-10] MEDS ORDERED: LIDOCAINE 1% INJ 10MG/ML (20 ML MDV) ONE (11:38)
[2023-07-10] MEDS ORDERED: IOPAMIDOL-300 100ML BTL INJ ONE (12:45)
[2023-07-10] MEDS ORDERED: IV FLUID CONTINUATION 1,000 ML IV ONE (12:53)
--- NOTE | 2023-07-10 13:35 | P.OP ---
Date of Procedure: 07/10/23 Preoperative Diagnosis: Severe Disabiling claudication Postoperative Diagnosis: Same Procedure(s) Performed: 1. Ultrasound guided right anterior tibial artery retrograde access 2. Right lower extremity selective angiogram 3. Percutaneous balloon angioplasty of the SFA, and popliteal artery with shockwave balloon 4. Percutaenous balloon angioplasty of the SFA and popliteal artery with Impact Admiral drug-eluting balloon 5. 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 He has been having worsening pain and can only walk 50 feet or so without significant pain in his calf. He states he gets occasional rest pain as well. He has been dealing with this for several months and states that he finally wants intervention. I did discuss with him due to the fact that he has had previous surgeries in his groin as well as a femorofemoral bypass as well as issues with his femorofemoral bypass that he would be better off with a retrograde access which does pose some risk to the smaller vessels. He states that he understood and wanted to go forward with retrograde access and intervention. Operative Findings: Severe calcification and occlusive disease at the popliteal, superficial femoral and anterior tibial arteries Two-vessel runoff to the ankle. Description of Procedure: After written and informed consent was obtained the patient all risks, benefits and complications were described patient is brought to the [employer] and laid supine position. The area of the right groin and lower leg was prepped and draped in usual sterile fashion. Timeout was performed in normal fashion. Utilizing ultrasound the right anterior tibial artery was accessed and a 5 F slender sheath was placed followed by nitro, saline solution drip. The patient was administered 3000 units of heparin. Retrograde angiogram was obtained demonstrating severe calcific occlusive disease involving the mid anterior tibial, popliteal and superficial femoral artery. The disease at the popliteal artery was severely calcified and >90% stenosis and therefore attempt to cross was performed. An 035 Glidewire was then placed up towards the popliteal artery and using a crossing catheter the lesion was crossed and catheter was placed into the common femoral artery and angiogram was taken demonstrating good intraluminal access. An 014 Glidewire advantage was then placed and catheter was removed. 5 x 60 mm shockwave balloon was then placed across the lesions and multiple balloon angioplasties with shockwave treatment was performed in normal fashion across the entirety of the SFA. Once completed angiogram was obtained demonstrating significant improvement of the stenosis throughout the SFA as well as the subtotal occlusion at the popliteal with residual of approximately 30%. No dissection was noted and therefore balloon angioplasty with a drug-eluting balloon was chosen to be performed throughout the entirety of the SFA. A 5 x 250 mm balloon was then placed and balloon angioplasty was performed in normal fashion within the stent at the SFA as well as the popliteal artery. Once completed angiogram was obtained demonstrating brisk flow to the tibioperoneal trunk and two-vessel takeoff with 2 vessels runoff to the ankle at the sheath. Once completed the guidewires and catheters were removed and the sheath was removed and a TR band was attempted to be placed. During removal of the sheath there was an injury to the anterior tibial artery and bleeding was noted and open repair was required. An incision was then created at the access site and extended in a vertical manner after local anesthetic was infused within the skin and overlying tissue. Dissection was then carried down to the anterior tibial artery and injured vessel was located which demonstrated the anterior tibial artery appeared to have been shredded and the proximal aspect had retracted to the midportion of the lower leg. This was dissected free and bleeding was controlled as well as the distal aspect was controlled. The edges of the vessel was freshened up at the distal aspect and during this time there was pulsatile backbleeding noted from the posterior tibial artery. Due to the state of the anterior tibial artery proximally decision was made to ligate the vessel proximally as well as distally due to the brisk backbleeding and filling of the foot. The area was then copiously irrigated and incision was closed in a multilayer fashion. Once completed the skin was cleansed and dressings were placed. The patient tolerated the procedure well and had a palpable posterior tibial and DP pulse at the conclusion of the procedure and was sent to PACU for recovery. If there is any residual neurologic deficit or worsening pain he will require an anterior tibial artery bypass to the ankle.
[2023-07-10] MEDS ORDERED: TEMAZEPAM 15 MG CAP PO PRN (13:40)
[2023-07-10] MEDS ORDERED: MAG HYDROX/AL HYDROX/SIMETH 30 ML CUP PO PRN (13:40)
[2023-07-10] MEDS ORDERED: DOCUSATE 100 MG CAP PO PRN (13:40)
--- NOTE | 2023-07-10 14:16 | IR ---
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 CLINICAL INDICATION:Male, 77 years old with history of PVD; , [facility] Total fluoroscopy time is 16.1 min. DAP: 3.79 Gycm2 Please see the operative/procedural note for further details.
[2023-07-10] MEDS ORDERED: DEXTROSE 50% SYRINGE 50 ML IVP PRN ×2 (16:35)
[2023-07-10 17:11] LABS: Glucose,Whole Blood 88 mg/dL (70-110)
--- NOTE | 2023-07-10 17:11 | P.CONS ---
History of Present Illness - Reason for Consult Consult date: 07/10/23 Medical management Requesting physician: Meliton Crane - Chief Complaint Right leg vascular surgery - History of Present Illness This is a pleasant [address] Otis Jones. Chronic stable medical conditions include diabetes, GERD, hypertension, hyperlipidemia, obstructive sleep apnea, PAD, DVT of the left leg and right leg in 2021,. Does not use CPAP. Anxiety depression. 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 Patient underwent open thrombectomy and revision of the same by Dr. Crane. Patient in May 12, [address] Crane.: His left groin wound has healed. But is having right leg cramping on walking about 50 yards. He has numbness in both the feet. Lower arterial Dopplers showed CHLOÉ of 0.6 on the right and 0.93 on the left. Today patient underwent balloon angioplasty of the SFA and popliteal artery and a drug-eluting balloon. Also there was hemorrhage at the anterior tibial artery for which open cutdown and control was carried out. Postprocedure laying in bed. Right leg feels warm except for the foot. Review of systems: GEN.: Tired EYES: None HEENT: None NECK: None RESPIRATORY: None CARDIOVASCULAR: None GASTROINTESTINAL: None GENITOURINARY: None MUSCULOSKELETAL: Some joint pains LYMPHATICS: None HEMATOLOGICAL: None PSYCHIATRY: None NEUROLOGICAL: None Social history: Smoked from 1961 through 2006. Drinks one drink a day. Lives alone. Retired Physical examination: VITAL SIGNS: 97.7, 72, 18, 152/69, 98% room air GENERAL: BMI 25.5, laying in bed awake comfortable. EYES: Pupils equal. Conjunctiva denise l. HEENT: External appearance of nose and ears normal, oral cavity grossly normal. NECK: JVD not raised; masses not palpable. HEART: First and second heart sounds are normal; no edema. LUNGS: Respiratory rate normal; clear to auscultation. ABDOMEN: Soft, nontender, liver spleen not palpable, no masses palpable. PSYCH: Alert and oriented x3; mood and affect denise l. MUSCULOSKELETAL:No Clubbing/cyanosis;muscles-grossly intact. OA EXTREMITY: Dressing in the right groin NEUROLOGICAL: Cranial nerves grossly intact; no facial asymmetry, power and sensation grossly intact. LYMPHATICS: No lymph nodes palpable in the axilla and neck INVESTIGATIONS, reviewed in the clinical context: July 10, 2023: White count 3.6 hemoglobin 14 platelets 173 potassium 3.9 BUN 36 creatinine 1.83 Previous labs: BUN 28 creatinine 1.32 on March 08, 2023 Assessment and plan: -.1 Ultrasound guided right anterior tibial artery retrograde access 2. Right lower extremity selective angiogram 3. Percutaneous balloon angioplasty of the SFA, and popliteal artery with shockwave balloon 4. Percutaenous balloon angioplasty of the SFA and popliteal artery with Impact Admiral drug-eluting balloon 5. Open cutdown and control of hemorrhage at the anterior tibial artery 6, Conscious sedation x 2 hours Done today by Dr. Crane. -Peripheral arterial disease with prior bypass bilaterally. Xarelto. Lipitor -Essential hypertension Atenolol 100 mg day. Cozaar 100 mg a day. -Chronic multiple DVTs Xarelto 15 mg a day, resume when okay with surgery -Diabetes mellitus type 2, chronically insulin Levemir 30 units subcu daily at bedtime tonight. NovoLog 7 units before meals 3 times a day with meals. Jardiance. Ozempic. -Depression, anxiety Lexapro 20 mg a day -Hyperlipidemia Lipitor 40 mg daily -GERD Prilosec 20 mg a day Care was discussed with the patient. Questions answered. Thank you Dr. Crane Past Medical History Past Medical History: Cancer, Diabetes Mellitus, Deep Vein Thrombosis (DVT), GERD/Reflux, Hyperlipidemia, Hypertension, Skin Disorder, Sleep Apnea/CPAP/BIPAP, Vascular Disorder Additional Past Medical History / Comment(s): L groin infection cleared up now, PAD, R lower extremity pain/claudication, recent "skipped heart beat"/states sent to cardiology for surgical clearance for this reason, IDDM, bladder cancer 10-12 yrs ago. Hx DVT left leg X7 skin cancer with removal, get flakey skin a nd sores at times," no problems right nowis getting a little scaley at this time CPAP not in use in quite some time". History of Any Multi-Drug Resistant Organisms: None Reported Past Surgical History: Bladder Surgery Additional Past Surgical History / Comment(s): Angiograms, multiple vascular surgeries bilateral legs including fem/fem bypass, fem/pop bypass with revision, R iliac stent, thrombectomy, cataract removals. Past Anesthesia/Blood Transfusion Reactions: No Reported Reaction Smoking Status: Former smoker - Past Family History Father Family Medical History: Cancer Additional Family Medical History / Comment(s): Bladder cancer. Medications and Allergies Home Medications Medication Instructions Recorded Confirmed Type Atorvastatin [Lipitor] 40 mg PO DAILY 10/17/22 07/10/23 History Empagliflozin [Jardiance] 25 mg PO DAILY 10/17/22 07/10/23 History Escitalopram Oxalate [Lexapro] 20 mg PO DAILY 10/17/22 07/10/23 History Fenofibric Acid (Choline) 135 mg PO DAILY 10/17/22 07/10/23 History [Trilipix] Ginkgo Biloba (Unknown Dose) 1 tab PO DAILY 10/17/22 07/10/23 History Insulin Aspart [NovoLOG Flexpen] 10 units SQ TID-W/MEALS 10/17/22 07/10/23 History Losartan Potassium [Cozaar] 100 mg PO DAILY 10/17/22 07/10/23 History Multivitamins, Thera [Multivitamin 1 tab PO DAILY 10/17/22 07/10/23 History (formulary)] Mv-Mn/Om3/Dha/Epa/Fish/Lut/Eligio 1 each PO HS 10/17/22 07/10/23 History [Ocuvite Adult 50 Plus Softgel] [place]-3/Dha/Epa/Fish Oil [Fish Oil 1 each PO HS 10/17/22 07/10/23 History 1,000 mg Softgel] Omeprazole Magnesium [PriLOSEC OTC] 20 mg PO DAILY 10/17/22 07/10/23 History Ozempic (Unknown Dose) 1 dose SQ CRAIG 10/17/22 07/10/23 History Rivaroxaban [Xarelto] 15 mg PO DAILY 10/17/22 07/10/23 History Vitamin E (Unknown Dose) 1 tab PO QAM 10/17/22 07/10/23 History atenoloL 100 mg PO QAM 10/17/22 07/10/23 History Insulin Degludec [Tresiba] 40 units SQ HS 07/06/23 07/10/23 History Allergies Allergy/AdvReac Type Severity Reaction Status Date / Time chlorhexidine Allergy Itching Verified 07/10/23 07:34 morphine Allergy Anxiety Verified 07/10/23 07:34 Physical Exam Vitals: Vital Signs Temp Pulse Resp BP Pulse Ox 07/10/23 07:34 97.7 F 72 18 152/69 98 Intake and Output 07/10/23 07/10/23 07/10/23 06:59 14:59 22:59 Intake Total 1303.5 Balance 1303.5 Intake: IV 1303.5 Other: Voiding Method Urinal # Voids 1 Weight 78.4 kg Results CBC & Chem 7: 07/10/23 07:25 07/10/23 07:25 Labs: Abnormal Lab Results - Last 24 Hours (Table) 07/10/23 07/10/23 07/10/23 Range/Units 07:25 07:25 07:30 WBC 3.6 L (3.8-10.6) k/uL Chloride 108 H (98-107) mmol/L BUN 36 H (9-20) mg/dL Creatinine 1.83 H (0.66-1.25) mg/dL Glucose 117 H (74-99) mg/dL POC Glucose (mg/dL) 118 H (70-110) mg/dL
[2023-07-10] MEDS: INSULIN ASPART (NovoLOG) 100 UNIT/ML VIAL SQ SCH ×2 (17:19→17:34)
[2023-07-10] MEDS ORDERED: INSULIN ASPART (NovoLOG) 100 UNIT/ML VIAL SQ SCH (17:30)
[2023-07-10] MEDS: RIVAROXABAN 15 MG TAB PO SCH (17:52)
[2023-07-10 18:13] LABS: Basophils % (A) 1 %; Eosinophils # (A) 0.1 k/uL (0-0.7); Eosinophils % (A) 3 %; HCT 39.2 % (39.0-53.0); HGB 12.6 gm/dL (13.0-17.5); Lymphocytes # (A) 0.8 k/uL (1.0-4.8); Lymphocytes % (A) 25 %; MCH 28.1 pg (25.0-35.0); MCV 87.8 fL (80.0-100.0); Mean Platelet Volume 10.2; Monocytes # (A) 0.2 k/uL (0-1.0); Monocytes % (A) 6 %; Neutrophils # (A) 2.1 k/uL (1.3-7.7); Neutrophils % (A) 62 %; Platelet Count 131 k/uL (150-450); RBC 4.47 m/uL (4.30-5.90); RDW 14.9 % (11.5-15.5); WBC 3.4 k/uL (3.8-10.6)
[2023-07-10] MEDS: HYDROcodone/APAP 5-325MG 1 EACH TAB PO PRN (20:36)
[2023-07-10 20:37] LABS: Glucose,Whole Blood 237 mg/dL (70-110)
[2023-07-10] MEDS ORDERED: INSULIN DETEMIR (LEVEMIR) 100 UNIT/ML SYR SQ SCH ×2 (21:00)
[2023-07-11] MEDS: HYDROcodone/APAP 5-325MG 1 EACH TAB PO PRN ×2 (01:07→10:44)
[2023-07-11 05:43] LABS: Glucose,Whole Blood 113 mg/dL (70-110)
[2023-07-11] MEDS: INSULIN ASPART (NovoLOG) 100 UNIT/ML VIAL SQ SCH ×4 (05:44→13:11)
[2023-07-11 06:52] VITALS: TEMP 98.2
[2023-07-11 08:19] VITALS: PULSE 80
[2023-07-11] MEDS ORDERED: atenoloL 50 MG TAB PO SCH (09:00)
[2023-07-11] MEDS ORDERED: LOSARTAN 50 MG TAB PO SCH (09:00)
[2023-07-11] MEDS ORDERED: ATORVASTATIN 40 MG TAB PO SCH (09:00)
[2023-07-11] MEDS ORDERED: FENOFIBRATE 160 MG TAB PO SCH (09:00)
[2023-07-11] MEDS ORDERED: ESCITALOPRAM 20 MG TAB PO SCH (09:00)
[2023-07-11] MEDS ORDERED: PANTOPRAZOLE 40 MG TABLET PO SCH (09:00)
[2023-07-11] MEDS ORDERED: DAPAGLIFLOZIN PROPANEDIOL 10 MG TABLET PO SCH (09:00)
[2023-07-11] MEDS ORDERED: ASPIRIN 81 MG PO SCH (09:00)
[2023-07-11] MEDS: RIVAROXABAN 15 MG TAB PO SCH (09:23)
[2023-07-11 09:42] LABS: HCT 36.2 % (39.6-50.0); HGB 11.8 g/dL (13.0-17.0); MCHC 32.6 g/dL (32.0-37.0); MCV 85.8 FL (80.0-97.0); Mean Platelet Volume 10.7 FL (9.5-12.2); NRBC Per 100 WBC 0 X 10*3/uL (0.00-0.01); Platelet Count 134 X 10*3/uL (140-440); RBC 4.22 X 10*6/uL (4.40-5.60); RDW 14.6 % (11.5-14.5); WBC 3.44 X 10*3/uL (4.50-10.00)
[2023-07-11 09:50] LABS: BUN/Creat Ratio 17.92 Ratio (12.00-20.00); Blood Urea Nitrogen 23.3 mg/dL (9.0-27.0); Calcium 8.6 mg/dL (8.7-10.3); Carbon Dioxide 24.1 mmol/L (21.6-31.8); Chloride 106 mmol/L (96-109); Glucose 98 mg/dL (70-110); Sodium 139 mmol/L (135-145)
[2023-07-11 11:59] VITALS: BP 152/79; RESP 16
--- NOTE | 2023-07-11 12:05 | P.DS ---
Providers Attending physician: Meliton Crane DO Consults: 07/10/23 13:37 Consult Physician Routine Consulting Provider: Harjinder Banegas Consult Reason/Comments: Medical management Do you want consulting provider notified?: Yes Primary care physician: Stated None Hospital Course: Patient is a 77-year-old male who was admitted 07/10/2023 for peripheral intervention and subsequently required a cutdown where the anterior tibial a rtery. He is doing well in recovery, stating he has had some pain but overall is feeling fine. He has some swelling in his leg which is mildly uncomfortable. The incision is clean and dry. The dressing is changed. Discharge instructions are given. Follow-up with Dr. Crane in 2 weeks Plan - Discharge Summary Discharge Rx Participant: No New Discharge Prescriptions: No Action Rivaroxaban [Xarelto] 15 mg PO DAILY Multivitamins, Thera [Multivitamin (formulary)] 1 tab PO DAILY Ginkgo Biloba (Unknown Dose) 1 tab PO DAILY Omeprazole Magnesium [PriLOSEC OTC] 20 mg PO DAILY Empagliflozin [Jardiance] 25 mg PO DAILY atenoloL 100 mg PO QAM Atorvastatin [Lipitor] 40 mg PO DAILY Fenofibric Acid (Choline) [Trilipix] 135 mg PO DAILY Vitamin E (Unknown Dose) 1 tab PO QAM [place]-3/Dha/Epa/Fish Oil [Fish Oil 1,000 mg Softgel] 1 each PO HS Insulin Aspart [NovoLOG Flexpen] 10 units SQ TID-W/MEALS Mv-Mn/Om3/Dha/Epa/Fish/Lut/Eligio [Ocuvite Adult 50 Plus Softgel] 1 each PO HS Escitalopram Oxalate [Lexapro] 20 mg PO DAILY Ozempic (Unknown Dose) 1 dose SQ CRAIG Losartan Potassium [Cozaar] 100 mg PO DAILY Insulin Degludec [Tresiba] 40 units SQ HS Discharge Medication List Atorvastatin [Lipitor] 40 mg PO DAILY 10/17/22 [History] Empagliflozin [Jardiance] 25 mg PO DAILY 10/17/22 [History] Escitalopram Oxalate [Lexapro] 20 mg PO DAILY 10/17/22 [History] Fenofibric Acid (Choline) [Trilipix] 135 mg PO DAILY 10/17/22 [History] Ginkgo Biloba (Unknown Dose) 1 tab PO DAILY 10/17/22 [History] Insulin Aspart [NovoLOG Flexpen] 10 units SQ TID-W/MEALS 10/17/22 [History] Losartan Potassium [Cozaar] 100 mg PO DAILY 10/17/22 [History] Multivitamins, Thera [Multivitamin (formulary)] 1 tab PO DAILY 10/17/22 [History] Mv-Mn/Om3/Dha/Epa/Fish/Lut/Eligio [Ocuvite Adult 50 Plus Softgel] 1 each PO HS 10/17/22 [History] [place]-3/Dha/Epa/Fish Oil [Fish Oil 1,000 mg Softgel] 1 each PO HS 10/17/22 [History] Omeprazole Magnesium [PriLOSEC OTC] 20 mg PO DAILY 10/17/22 [History] Ozempic (Unknown Dose) 1 dose SQ CRAIG 10/17/22 [History] Rivaroxaban [Xarelto] 15 mg PO DAILY 10/17/22 [History] Vitamin E (Unknown Dose) 1 tab PO QAM 10/17/22 [History] atenoloL 100 mg PO QAM 10/17/22 [History] Insulin Degludec [Tresiba] 40 units SQ HS 07/06/23 [History] Follow up Appointment(s)/Referral(s): Meliton Crane DO [STAFF PHYSICIAN] - 1 Week Activity/Diet/Wound Care/Special Instructions: Continue medications as previous. No driving. Otherwise normal activity. Elevate lower extremity. May shower. No bathing soaking in tubs. Discharge Disposition: HOME SELF-CARE
[2023-07-11 13:12] LABS: Glucose,Whole Blood 136 mg/dL (70-110)
--- NOTE | 2023-07-11 16:09 | P.PN ---
Progress Note - Text Progress Note Date: 07/11/23 - Chief Complaint Right leg vascular surgery - History of Present Illness This is a pleasant [address] Otis Jones. Chronic stable medical conditions include diabetes, GERD, hypertension, hyperlipidemia, obstructive sleep apnea, PAD, DVT of the left leg and right leg in 2021,. Does not use CPAP. Anxiety depression. 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 Patient underwent open thrombectomy and revision of the same by Dr. Crane. Patient in May 12, [address] Crane.: His left groin wound has healed. But is having right leg cramping on walking about 50 yards. He has numbness in both the feet. Lower arterial Dopplers showed CHLOÉ of 0.6 on the right and 0.93 on the left. Today patient underwent balloon angioplasty of the SFA and popliteal artery and a drug-eluting balloon. Also there was hemorrhage at the anterior tibial artery for which open cutdown and control was carried out. Postprocedure laying in bed. Right leg feels warm except for the foot. July 11: Patient feels well. No pain in the legs. Slight numbness in the right foot. Otherwise he feels well. Has been cleared by Dr. Ruth for discharge. Patient to follow-up with his PCP. Care discussed with the patient and at the bedside. Xarelto has been resumed. Social history: Smoked from 1961 through 2006. Drinks one drink a day. Lives alone. Retired Physical examination: VITAL SIGNS: 98.2, 80, 18, 152/79, 85% room air GENERAL: Up in the chair, comfortable EYES: Pupils equal. Conjunctiva denise l. HEENT: External appearance of nose and ears normal, oral cavity grossly normal. NECK: JVD not raised; masses not palpable. HEART: First and second heart sounds are normal; no edema. LUNGS: Respiratory rate normal; clear to auscultation. ABDOMEN: Soft, nontender, liver spleen not palpable, no masses palpable. PSYCH: Alert and oriented x3; mood and affect denise l. MUSCULOSKELETAL:No Clubbing/cyanosis;muscles-grossly intact. OA EXTREMITY: Right leg is warm INVESTIGATIONS, reviewed in the clinical context: July 11: Medical 3.4 hemoglobin 9.8 platelets 235 potassium 4 creatinine 1.3 July 10, 2023: White count 3.6 hemoglobin 14 platelets 173 potassium 3.9 BUN 36 creatinine 1.83 Previous labs: BUN 28 creatinine 1.32 on March 08, 2023 Assessment and plan: -.1 Ultrasound guided right anterior tibial artery retrograde access 2. Right lower extremity selective angiogram 3. Percutaneous balloon angioplasty of the SFA, and popliteal artery with shockwave balloon 4. Percutaenous balloon angioplasty of the SFA and popliteal artery with Impact Admiral drug-eluting balloon 5. Open cutdown and control of hemorrhage at the anterior tibial artery 6, Conscious sedation x 2 hours Done today by Dr. Crane. -Peripheral arterial disease with prior bypass bilaterally. Xarelto. Lipitor -Essential hypertension Atenolol 100 mg day. Cozaar 100 mg a day. -Chronic multiple DVTs Xarelto 15 mg a day, resume when okay with surgery -Diabetes mellitus type 2, chronically insulin Levemir 30 units subcu daily at bedtime tonight. NovoLog 7 units before meals 3 times a day with meals. Jardiance. Ozempic. -Depression, anxiety Lexapro 20 mg a day -Chronic kidney disease stage III likely nephrosclerosis Follow-up outpatient -Hyperlipidemia Lipitor 40 mg daily -GERD Prilosec 20 mg a day Patient to follow-up with his PCP upon discharge. Discussed with patient . Thank you Dr. Crane Past Medical History Past Medical History: Cancer, Diabetes Mellitus, Deep Vein Thrombosis (DVT), GERD/Reflux, Hyperlipidemia, Hypertension, Skin Disorder, Sleep Apnea/CPAP/BIPAP, Vascular Disorder Additional Past Medical History / Comment(s): L groin infection cleared up now, PAD, R lower extremity pain/claudication, recent "skipped heart beat"/states sent to cardiology for surgical clearance for this reason, IDDM, bladder cancer 10-12 yrs ago. Hx DVT left leg X7 skin cancer with removal, get flakey skin and sores at times," no problems right nowis getting a little scaley at this time CPAP not in use in quite some time". History of Any Multi-Drug Resistant Organisms: None Reported Past Surgical History: Bladder Surgery Additional Past Surgical History / Comment(s): Angiograms, multiple vascular surgeries bilateral legs including fem/fem bypass, fem/pop bypass with revision, R iliac stent, thrombectomy, cataract removals. Past Anesthesia/Blood Transfusion Reactions: No Reported Reaction Smoking Status: Former smoker
[2023-07-11] MEDS ORDERED: RIVAROXABAN 15 MG TAB PO SCH (17:30)
[2023-07-12] MEDS ORDERED: OZEMPIC SQ SCH (16:35)
== END 2023-07-11 14:00 | disposition home or self-care (01) ==
LOC: CATHCVL 07:07 → 6NMEDSUR 13:05 → CATHCVL 07-11 14:00
PROVIDERS: ATTEND Surgery
DX: I73.9 Peripheral vascular disease, unspecified (principal); E11.9 Type 2 diabetes mellitus without complications; Z86.718 Personal history of other venous thrombosis and embolism; Z79.01 Long term (current) use of anticoagulants; Z79.84 Long term (current) use of oral hypoglycemic drugs; Z79.899 Other long term (current) drug therapy; Z88.5 Allergy status to narcotic agent
CPT/HCPCS: 80048 ×2; 85025; 85027; 37228; 37224; J2250; J2001; J1644 ×2; Q9967; J2305 ×2

== ENCOUNTER 2023-09-22 15:05 | Inpatient (IN) | payer MEDICARE, OTHER ==
--- NOTE | 2023-09-22 15:22 | ED ---
General Adult HPI - General Source: patient, RN notes reviewed, old records reviewed Mode of arrival: ambulatory Limitations: no limitations <Elliot Pitt - Last Filed: 09/22/23 15:20> <Loy Ivan - Last Filed: 09/22/23 20:25> - General Stated complaint: Blood clots Time Seen by Provider: 09/22/23 15:15 - History of Present Illness Initial comments: Quick note 77-year-old male presents emergency department from Dr. Crane's office for admission. Patient states that he was told he has clots within his prior bypasses. Patient states he has pain, symptoms of his groin, legs. Patient states he had surgery in the past he had imaging today at the office and sent here for evaluation and admission. (Elliot Pitt) Dictation was produced using [employer] dictation software. please excuse any grammatical, word or spelling errors. Chief Complaint: 77-year-old male presents to the ER from vascular surgery office for ischemic limb History of Present Illness: Patient 77-year-old male he has extensive history of atherosclerotic vascular disease to his lower extremities. He is status post bypass. He followed up with the vascular surgeon today had Dopplers performed in the office and was instructed to come to the emergency department for concerns of ischemic limb. Patient states that his symptoms have been ongoing for the last 2 days. States that he has some paresthesias and coolness to his left foot. Patient otherwise has no other complaints. The ROS documented in this emergency department record has been reviewed and confirmed by me. Those systems with pertinent positive or negative responses have been documented in the HPI. All other systems are other negative and/or noncontributory. (Loy Ivan) - Related Data Home Medications Medication Instructions Recorded Confirmed Atorvastatin [Lipitor] 40 mg PO DAILY 10/17/22 09/22/23 Empagliflozin [Jardiance] 25 mg PO DAILY 10/17/22 09/22/23 Escitalopram Oxalate [Lexapro] 20 mg PO DAILY 10/17/22 09/22/23 Fenofibric Acid (Choline) 135 mg PO DAILY 10/17/22 09/22/23 [Trilipix] Insulin Aspart [NovoLOG Flexpen] 10 units SQ TID-W/MEALS 10/17/22 09/22/23 Losartan Potassium [Cozaar] 100 mg PO DAILY 10/17/22 09/22/23 Multivitamins, Thera [Multivitamin 1 tab PO DAILY 10/17/22 09/22/23 (formulary)] Mv-Mn/Om3/Dha/Epa/Fish/Lut/Eligio 1 tab PO HS 10/17/22 09/22/23 [Ocuvite Adult 50 Plus Softgel] [place]-3/Dha/Epa/Fish Oil [Fish Oil 3 cap PO HS 10/17/22 09/22/23 1,000 mg Softgel] Omeprazole Magnesium [PriLOSEC OTC] 20 mg PO DAILY 10/17/22 09/22/23 Rivaroxaban [Xarelto] 15 mg PO DAILY 10/17/22 09/22/23 atenoloL 100 mg PO DAILY 10/17/22 09/22/23 Insulin Degludec [Tresiba] 40 units SQ HS 07/06/23 09/22/23 Ginkgo Biloba [place] Extract [Ginkgo 125 mg PO DAILY 09/22/23 09/22/23 Biloba] Vitamin E (Dl,Tocopheryl Acet) 400 unit PO DAILY 09/22/23 09/22/23 [Vitamin E (400 Iu = 180 mg)] Previous Rx's Medication Instructions Recorded Aspirin 81 mg PO DAILY tab 07/11/23 Allergies Allergy/AdvReac Type Severity Reaction Status Date / Time chlorhexidine Allergy Itching Verified 09/22/23 19:05 morphine Allergy Anxiety Verified 09/22/23 19:05 Review of Systems ROS Other: All systems not noted in ROS Statement are negative. <Elliot Pitt - Last Filed: 09/22/23 15:20> ROS Other: All systems not noted in ROS Statement are negative. <Loy Ivan - Last Filed: 09/22/23 20:25> ROS Statement: Those systems with pertinent positive or pertinent negative responses have been documented in the HPI. Past Medical History Past Medical History: Cancer, Diabetes Mellitus, Deep Vein Thrombosis (DVT), GERD/Reflux, Hyperlipidemia, Hypertension, Skin Disorder, Sleep Apnea/CPAP/BIPAP, Vascular Disorder Additional Past Medical History / Comment(s): L groin infection cleared up now, PAD, R lower extremity pain/claudication, recent "skipped heart beat"/states sent to cardiology for surgical clearance for this reason, IDDM, bladder cancer 10-12 yrs ago. Hx DVT left leg X7 skin cancer with removal, get flakey skin and sores at times," no problems right nowis getting a little scaley at this time CPAP not in use in quite some time". History of Any Multi-Drug Resistant Organisms: None Reported Past Surgical History: Bladder Surgery Additional Past Surgical History / Comment(s): Angiograms, multiple vascular surgeries bilateral legs including fem/fem bypass, fem/pop bypass with revision, R iliac stent, thrombectomy, cataract removals. Past Anesthesia/Blood Transfusion Reactions: No Reported Reaction Smoking Status: Former smoker - Past Family History Father Family Medical History: Cancer Additional Family Medical History / Comment(s): Bladder cancer. <Elliot Pitt - Last Filed: 09/22/23 15:20> General Exam <Elliot Pitt - Last Filed: 09/22/23 15:20> <Loy Ivan - Last Filed: 09/22/23 20:25> - General Exam Comments Initial Comments: Visual Physical Exam Vital signs reviewed General: Well-appearing, nontoxic, no acute distress. Head: Normocephalic, atraumatic Eyes: PERRLA, EOMI ENT: Airway patent Chest: Nonlabored breathing Skin: No visual rash, normal skin tone Neuro: Alert and oriented 3 Musculoskeletal: No gross abnormalities (Elliot Pitt) PHYSICAL EXAM: General Impression: Alert and oriented x3, not in acute distress HEENT: Normocephalic atraumatic, extra-ocular movements intact, pupils equal and reactive to light bilaterally, mucous membranes moist. Cardiovascular: Heart regular rate and rhythm Chest: Able to complete full sentences, no retractions, no tachypnea Abdomen: abdomen soft, non-tender, non-distended, no organomegaly Musculoskeletal: P alert and coolness of the left lower extremity compared to the right, no palpable dorsalis pedis or PT pulse Motor: no focal deficits noted Neurological: CN II-XII grossly intact, no focal motor or sensory deficits noted Skin: Intact with no visualized rashes Psych: Normal affect and mood (Loy Ivan) Course <Loy Ivan - Last Filed: 04/16/24 20:25> Vital Signs 09/22/23 09/22/23 09/22/23 15:54 18:37 19:56 Temperature 97.9 F Pulse Rate 75 82 87 Respiratory 16 18 16 Rate Blood Pressure 171/79 169/80 174/92 O2 Sat by Pulse 97 95 96 Oximetry - Reevaluation(s) Reevaluation #1: 09/22/23 18:[address] Crane who requested CT films, heparin drip and internal medicine admission. (Loy Ivan) Medical Decision Making <Elliot Pitt - Last Filed: 09/22/23 15:20> - Lab Data Result diagrams: 09/22/23 16:18 09/22/23 16:18 <Loy Ivan - Last Filed: 09/22/23 20:25> - Medical Decision Making I completed the quick note portion of this chart signed Elliot Pitt PA-C (Elliot Pitt) Was pt. sent in by a medical professional or institution (Dr. PA, [facility], urgent care, hospital, or long-term...) When possible be specific @ -No Did you speak to anyone other than the patient for history (EMS, parent, family, police, friend...)? What history was obtained from this source @ -No Did you review nursing and triage notes (agree or disagree)? Why? @ -I reviewed and agree with nursing and triage notes Were old charts reviewed (outside hosp., previous admission, EMS record, old EKG, old radiological studies, urgent care reports/EKG's, long-term records)? Report findings @ -No old charts were reviewed Differential Diagnosis (chest pain, altered mental status, abdominal pain women, abdominal pain men, vaginal bleeding, musculoskeletal, weakness, fever, dyspnea, syncope, headache, dizziness, GI bleed, back pain, seizure, CVA, palpatations, mental health)? @ -Not applicable EKG interpreted by me (3pts min.). @ -None done X-rays interpreted by me (1pt min.). @ -None done CT interpreted by me (1pt min.). @ -CT scan of the aorta abdomen with runoff shows graft occlusion U/S interpreted by me (1pt. min.). @ -None done What testing was considered but not performed or refused? (CT, X-rays, U/S, labs)? Why? @ -None What meds were considered but not given or refused? Why? @ -None Did you discuss the management of the patient with other professionals ( professionals i.e. , PA, [facility], lab, RT, psych nurse, criminal justice social worker, wire technician, teacher, alumni relations officer, director case management)? Give summary @ -Case discussed with hospitalist for admission. Case discussed with vascular surgeon who recommends heparin admission for surgical intervention Was smoking cessation discussed for >3mins.? @ -No Was critical care preformed (if so, how long)? @ -No Were there social determinants of health that impacted care today? How? (Homelessness, low income, unemployed, alcoholism, drug addiction, transportation, low edu. Level, literacy, decrease access to med. care, usp, rehab)? @ -No Was there de-escalation of care discussed even if they declined (Discuss DNR or withdrawal of care, Hospice)? DNR status @ -No What co-morbidities impacted this encounter? (DM, HTN, Smoking, COPD, CAD, Cancer, CVA, ARF, Chemo, Hep., AIDS, mental health diagnosis, sleep apnea, morbid obesity)? @ -None Was patient admitted / discharged? Hospital course, mention meds given and route , prescriptions, significant lab abnormalities, going to OR and other pertinent info. @ -77-year-old male sent in from vascular surgery office for concerns of ischemic limb. Patient has history of lower extremity bypass grafting due to arterial occlusions. He is seen at the vascular surgeons office and sent here for further care. Vital signs stable. Laboratory evaluation obtained found to be within acceptable limits. CT angiography shows graft occlusion. Patient will be admitted. Dr. Nobles was updated with CT results. Undiagnosed new problem with uncertain prognosis? @ -No Drug Therapy requiring intensive monitoring for toxicity (Heparin, Nitro, Insulin, Cardizem)? @ -No Were any procedures done? @ -No Diagnosis/symptom? Acute, or Chronic, or Acute on Chronic? Uncomplicated (without systemic symptoms) or Complicated (systemic symptoms)? @ -Ischemic limb Side effects of treatment? @ -No Exacerbation, Progression, or Severe Exacerbation? @ -No Poses a threat to life or bodily function? How? (Chest pain, USA, PR, pneumonia, PE, COPD, DKA, ARF, appy, cholecystitis, CVA, Diverticulitis, Homicidal, Suicidal, threat to staff... and all critical care pts) @ -yes (Loy Ivan) - Lab Data Lab Results 09/22/23 09/22/23 09/22/23 Range/Units 16:18 16:18 16:18 WBC 4.2 (3.8-10.6) k/uL RBC 4.99 (4.30-5.90) m/uL Hgb 14.3 (13.0-17.5) gm/dL Hct 44.7 (39.0-53.0) % MCV 89.7 (80.0-100.0) fL MCH 28.7 (25.0-35.0) pg MCHC 32.0 (31.0-37.0) g/dL RDW 14.7 (11.5-15.5) % Plt Count 152 (150-450) k/uL MPV 8.6 Neutrophils % 54 % Lymphocytes % 36 % Monocytes % 5 % Eosinophils % 3 % Basophils % 1 % Neutrophils # 2.2 (1.3-7.7) k/uL Lymphocytes # 1.5 (1.0-4.8) k/uL Monocytes # 0.2 (0-1.0) k/uL Eosinophils # 0.1 (0-0.7) k/uL Basophils # 0.0 (0-0.2) k/uL PT 9.7 L (10.0-12.5) sec INR 0.9 (<1.2) APTT 21.3 L (22.0-30.0) sec Sodium 130 L (137-145) mmol/L Potassium 4.4 (3.5-5.1) mmol/L Chloride 101 (98-107) mmol/L Carbon Dioxide 26 (22-30) mmol/L Anion Gap 3 mmol/L BUN 24 H (9-20) mg/dL Creatinine 1.09 (0.66-1.25) mg/dL Est GFR (CKD-EPI)AfAm 75 (>60 ml/min/1.73 sqM) Est GFR (CKD-EPI)NonAf 65 (>60 ml/min/1.73 sqM) Glucose 370 H (74-99) mg/dL Calcium 9.0 (8.4-10.2) mg/dL Total Bilirubin 0.9 (0.2-1.3) mg/dL AST 29 (17-59) U/L ALT 26 (4-49) U/L Alkaline Phosphatase 79 (38-126) U/L Total Protein 6.7 (6.3-8.2) g/dL Albumin 3.7 (3.5-5.0) g/dL Disposition <Elliot Pitt - Last Filed: 09/22/23 15:20> Decision Time: 20:25 <Loy Ivan - Last Filed: 09/22/23 20:25> Clinical Impression: Ischemic leg Disposition: ADMITTED IP TO THIS [facility] Condition: Serious Referrals: Otis Jones MD [Primary Care Provider] - 1-2 days
[2023-09-22 16:28] LABS: Basophils % (A) 1 %; Eosinophils # (A) 0.1 k/uL (0-0.7); Eosinophils % (A) 3 %; HCT 44.7 % (39.0-53.0); HGB 14.3 gm/dL (13.0-17.5); Lymphocytes # (A) 1.5 k/uL (1.0-4.8); Lymphocytes % (A) 36 %; MCH 28.7 pg (25.0-35.0); MCV 89.7 fL (80.0-100.0); Mean Platelet Volume 8.6; Monocytes # (A) 0.2 k/uL (0-1.0); Monocytes % (A) 5 %; Neutrophils # (A) 2.2 k/uL (1.3-7.7); Neutrophils % (A) 54 %; Platelet Count 152 k/uL (150-450); RBC 4.99 m/uL (4.30-5.90); RDW 14.7 % (11.5-15.5); WBC 4.2 k/uL (3.8-10.6)
[2023-09-22 16:42] LABS: ALT 26 U/L (4-49); AST 29 U/L (17-59); African American GFR (CKD) 75 (>60 ml/min/1.73 sqM); Albumin 3.7 g/dL (3.5-5.0); Alkaline Phosphatase 79 U/L (38-126); Anion Gap 3 mmol/L; Blood Urea Nitrogen 24 mg/dL (9-20); Carbon Dioxide 26 mmol/L (22-30); Chloride 101 mmol/L (98-107); Glucose 370 mg/dL (74-99); Non-African American GFR(CKD) 65 (>60 ml/min/1.73 sqM); Potassium 4.4 mmol/L (3.5-5.1); Sodium 130 mmol/L (137-145); Total Bilirubin 0.9 mg/dL (0.2-1.3); Total Protein 6.7 g/dL (6.3-8.2)
[2023-09-22 17:47] LABS: INR 0.9 (<1.2); Prothrombin Time 9.7 sec (10.0-12.5)
[2023-09-22 18:03] LABS: Partial Thromboplastin Time 21.3 sec (22.0-30.0)
[2023-09-22] MEDS ORDERED: HEPARIN SODIUM 1,000 UN/ML (10ML VL) IV PRN (19:00)
[2023-09-22] MEDS: HEPARIN SODIUM 1,000 UN/ML (10ML VL) IV ONE (19:54)
[2023-09-22] MEDS: HEPARIN SOD,PORK IN 0.45% NACL 25,000 UNIT in 0.45% NACL 1 250ML.BAG IV SCH (19:54)
--- NOTE | 2023-09-22 19:54 | CT ---
EXAMINATION TYPE: CT angio tho/abd W Run Off CT DLP: 2928.4 mGycm, Automated exposure control for dose reduction was used. DATE OF EXAM: 09/22/2023 7:37 PM COMPARISON: CT angiogram of 09/08/2022. CLINICAL INDICATION:Male, 77 years old with history of left leg numbness; PHH, Left leg numbness. TECHNIQUE: Dissection protocol: Multiple axial CT images of the chest, abdomen, and pelvis were obtai tom prior and to the administration of IV contrast. 3-D reformats and maximum intensity projection fo rmat were performed on a separate workstation. Contrast used:100 ml mL of Isovue 370 with IV Contrast, Oral contrast used: FINDINGS: ARTERIAL VASCULATURE: The thoracic aorta is normal in course and caliber. There is no evidence of aor tic dissection, aneurysm or acute aortic injury. Great arch vessels patent and normal in course and c aliber. Scattered atherosclerotic disease of the abdominal aorta is appreciated. There is mild narrowing of t he origin of the celiac axis and moderate narrowing of the superior mesenteric artery. Atheroscleroti c disease creates moderate left and mild right renal artery stenosis. There is redemonstration of occ lusion of the left external iliac artery. The femoral-femoral graft demonstrates poor contrast opacification. Graft material is not seen extend ing to the level of the common femoral artery as on the prior study. No significant opacification is identified involving the left lower extremity superficial femoral artery. Distal collaterals near the region of the expected popliteal artery and peroneal arteries are identified, with only 1 vessel ([place] spected posterior tibial artery branch) seen crossing the ankle joint on the left. The right common femoral as well as superficial and deep femoral arteries are patent. Severe atherosc lerotic disease is identified involving the right external femoral artery. The right popliteal artery and tibioperoneal trunk are patent with moderate to severe atherosclerotic disease. There is a gradu al loss of opacification involving the anterior and peroneal arteries, with the posterior tibial terry ry seen crossing the right ankle joint. PULMONARY ARTERIAL VASCULATURE: Normal caliber. No evidence of filling defect to suggest pulmonary em bolus. VENOUS SYSTEM: Unremarkable. Lungs/pleura: The lung parenchyma appears unremarkable. Heart: Coronary artery calcifications of the heart are identified. Mediastinum: No gross evidence of adenopathy. Lower Neck: No significant findings. Abdomen: Liver: Too small adequately characterize foci of hypoattenuation are scattered throughout the liver, likely related to cysts. Gallbladder and Bile ducts: Cholelithiasis is identified. No evidence of biliary duct dilation. Pancreas: Unremarkable. Spleen: Unremarkable. Adrenal glands: Unremarkable. Kidneys and Ureters: Unremarkable. No hydronephrosis. Bladder: Unremarkable. Reproductive: Unremarkable. Stomach and Bowel: Unremarkable. No evidence of bowel obstruction. Peritoneum: No evidence of pneumoperitoneum, free fluid, or adenopathy. Musculoskeletal: Moderate multilevel degenerative changes of the thoracic lumbar spine are appreciate d. No acute osseous process.. Lymph nodes: No evidence of lymphadenopathy. Abdominal wall/soft tissues: Unremarkable. IMPRESSION: 1. Loss of opacification involving the patient's femoral-femoral graft, with minimal contrast opacifi cation in distal collateral vessels involving the left lower extremity. Findings concerning for graft occlusion. 2. Similar severe scattered atherosclerotic disease of the [place] vasculature and right lower extremi ty, with the posterior tibial artery seen crossing the ankle joint. 3. No acute intrathoracic or intra-abdominal process.
[2023-09-22] MEDS ORDERED: NALOXONE 0.4 MG/ML 1 ML VIAL IV PRN (20:22)
[2023-09-22] MEDS ORDERED: MORPHINE SULFATE 4 MG/ML SYRINGE IV PRN (20:22)
[2023-09-22] MEDS: SODIUM CHLORIDE 0.9% 1,000 ML IV SCH (20:34)
[2023-09-22] MEDS: MORPHINE SULFATE 4 MG/ML SYRINGE IV STA (20:35)
[2023-09-22] MEDS: ACETAMINOPHEN TAB 500 MG TAB PO STA (20:41)
[2023-09-23] MEDS ORDERED: DEXTROSE 50% SYRINGE 50 ML IVP PRN ×2 (09:55)
[2023-09-23 10:02] LABS: HCT 45.1 % (39.0-53.0); Hypochromasia Slight; MCH 27.8 pg (25.0-35.0); MCHC 30.9 g/dL (31.0-37.0); MCV 89.9 fL (80.0-100.0); Mean Platelet Volume 8.6; Platelet Count 140 k/uL (150-450); RBC 5.02 m/uL (4.30-5.90); RDW 14.9 % (11.5-15.5); WBC 4.5 k/uL (3.8-10.6)
--- NOTE | 2023-09-23 10:05 | P.GSCN ---
History of Present Illness Consult date: 09/23/23 Reason for Consult: Ischemic limb Requesting physician: Loy Ivan History of present illness: This is a pleasant 77-year-old male who was sent into the emergency department by Dr. Gaona yesterday after being seen in the office. Past medical history includes diabetes mellitus deep vein thrombosis, GERD, hyperlipidemia, hypertension, sleep apnea bladder cancer and peripheral arterial disease. He has a history of peripheral arterial disease and severe claudication. He is a history of fem-fem and left fem-popliteal artery bypass graft with revision and open thrombectomy in 2022. A in July 2023 he underwent angiogram with percutaneous balloon angioplasty of the SFA and popliteal artery. Apparently over the last few days patient has been having increased pain down the left lower extremity and difficulty with walking. Most the pain is in the left valentino and down. He denies any pain in his right lower extremity. He was sent over to the emergency department to start a heparin drip. Patient states pain is manageable at this time. He denies any shortness of breath, chest pain, abdominal pain, nausea or vomiting. Review of Systems A 14 point review systems was completed all pertinent positives and negatives as stated in the HPI. Past Medical History Past Medical History: Cancer, Diabetes Mellitus, Deep Vein Thrombosis (DVT), GERD/Reflux, Hyperlipidemia, Hypertension, Skin Disorder, Sleep Apnea/CPAP/BIPAP, Vascular Disorder Additional Past Medical History / Comment(s): L groin infection cleared up now, PAD, R lower extremity pain/claudication, recent "skipped heart beat"/states sent to cardiology for surgical clearance for this reason, IDDM, bladder cancer 10-12 yrs ago. Hx DVT left leg X7 skin cancer with removal, get flakey skin and sores at times," no problems right nowis getting a little scaley at this time CPAP not in use in quite some time". History of Any Multi-Drug Resistant Organisms: None Reported Past Surgical History: Bladder Surgery Additional Past Surgical History / Comment(s): Angiograms, multiple vascular surgeries bilateral legs including fem/fem bypass, fem/pop bypass with revision, R iliac stent, thrombectomy, cataract removals. Past Anesthesia/Blood Transfusion Reactions: No Reported Reaction Past Psychological History: Anxiety, Depression Smoking Status: Former smoker Past Alcohol Use History: Daily Past Drug Use History: None Reported - Past Family History Father Family Medical History: Cancer Additional Family Medical History / Comment(s): Bladder cancer. Medications and Allergies Home Medications Medication Instructions Recorded Confirmed Type Atorvastatin [Lipitor] 40 mg PO DAILY 10/17/22 09/22/23 History Empagliflozin [Jardiance] 25 mg PO DAILY 10/17/22 09/22/23 History Escitalopram Oxalate [Lexapro] 20 mg PO DAILY 10/17/22 09/22/23 History Fenofibric Acid (Choline) 135 mg PO DAILY 10/17/22 09/22/23 History [Trilipix] Insulin Aspart [NovoLOG Flexpen] 10 units SQ TID-W/MEALS 10/17/22 09/22/23 History Losartan Potassium [Cozaar] 100 mg PO DAILY 10/17/22 09/22/23 History Multivitamins, Thera [Multivitamin 1 tab PO DAILY 10/17/22 09/22/23 History (formulary)] Mv-Mn/Om3/Dha/Epa/Fish/Lut/Eligio 1 tab PO HS 10/17/22 09/22/23 History [Ocuvite Adult 50 Plus Softgel] [place]-3/Dha/Epa/Fish Oil [Fish Oil 3 cap PO HS 10/17/22 09/22/23 History 1,000 mg Softgel] Omeprazole Magnesium [PriLOSEC OTC] 20 mg PO DAILY 10/17/22 09/22/23 History Rivaroxaban [Xarelto] 15 mg PO DAILY 10/17/22 09/22/23 History atenoloL 100 mg PO DAILY 10/17/22 09/22/23 History Insulin Degludec [Tresiba] 40 units SQ HS 07/06/23 09/22/23 History Aspirin 81 mg PO DAILY tab 07/11/23 09/22/23 Rx Ginkgo Biloba [place] Extract [Ginkgo 125 mg PO DAILY 09/22/23 09/22/23 History Biloba] Vitamin E (Dl,Tocopheryl Acet) 400 unit PO DAILY 09/22/23 09/22/23 History [Vitamin E (400 Iu = 180 mg)] Allergies Allergy/AdvReac Type Severity Reaction Status Date / Time chlorhexidine Allergy Itching Verified 09/22/23 19:05 morphine Allergy Anxiety Verified 09/22/23 19:05 Surgical - Exam Vital Signs Temp Pulse Resp BP Pulse Ox 97.9 F 75 16 171/79 97 09/22/23 15:54 09/22/23 15:54 09/22/23 15:54 09/22/23 15:54 09/22/23 15:54 General appearance: The patient is alert, oriented, appears in no acute distress. HET: Head is normocephalic and atraumatic. Pupils are equal and reactive. Neck: Supple. Heart: Regular. Lungs: Equal expansion, normal respiratory effort. Abdomen: Soft, nontender, nondistended. Extremities: Normal skin color and turgor. Left foot cool to the touch to just above the ankle, rest of extremity warm to touch. Sensorimotor intact. Nonpalpable pulses left lower extremity. Right lower extremity warm to touch with good capillary refill. Neurological: No focal deficits. Strength and sensation are grossly intact. Results - Labs 09/22/23 16:18 09/22/23 16:18 Abnormal Lab Results - Last 24 Hours (Table) 09/22/23 09/22/23 09/23/23 Range/Units 16:18 16:18 02:20 PT 9.7 L (10.0-12.5) sec APTT 21.3 L 59.6 H (22.0-30.0) sec Sodium 130 L (137-145) mmol/L BUN 24 H (9-20) mg/dL Glucose 370 H (74-99) mg/dL Diabetes panel 09/22/23 Range/Units 16:18 Sodium 130 L (137-145) mmol/L Potassium 4.4 (3.5-5.1) mmol/L Chloride 101 (98-107) mmol/L Carbon Dioxide 26 (22-30) mmol/L BUN 24 H (9-20) mg/dL Creatinine 1.09 (0.66-1.25) mg/dL Glucose 370 H (74-99) mg/dL Calcium 9.0 (8.4-10.2) mg/dL AST 29 (17-59) U/L ALT 26 (4-49) U/L Alkaline Phosphatase 79 (38-126) U/L Total Protein 6.7 (6.3-8.2) g/dL Albumin 3.7 (3.5-5.0) g/dL Calcium panel 09/22/23 Range/Units 16:18 Calcium 9.0 (8.4-10.2) mg/dL Albumin 3.7 (3.5-5.0) g/dL Pituitary panel 09/22/23 Range/Units 16:18 Sodium 130 L (137-145) mmol/L Potassium 4.4 (3.5-5.1) mmol/L Chloride 101 (98-107) mmol/L Carbon Dioxide 26 (22-30) mmol/L BUN 24 H (9-20) mg/dL Creatinine 1.09 (0.66-1.25) mg/dL Glucose 370 H (74-99) mg/dL Calcium 9.0 (8.4-10.2) mg/dL Adrenal panel 09/22/23 Range/Units 16:18 Sodium 130 L (137-145) mmol/L Potassium 4.4 (3.5-5.1) mmol/L Chloride 101 (98-107) mmol/L Carbon Dioxide 26 (22-30) mmol/L BUN 24 H (9-20) mg/dL Creatinine 1.09 (0.66-1.25) mg/dL Glucose 370 H (74-99) mg/dL Calcium 9.0 (8.4-10.2) mg/dL Total Bilirubin 0.9 (0.2-1.3) mg/dL AST 29 (17-59) U/L ALT 26 (4-49) U/L Alkaline Phosphatase 79 (38-126) U/L Total Protein 6.7 (6.3-8.2) g/dL Albumin 3.7 (3.5-5.0) g/dL - Imaging Comments: CT angio thoracic abdomen with runoff reports loss of opacification involving the patient's femoral-femoral graft with minimal contrast placed vacation and distal collateral vessels involving the left lower extremity. Findings concerning for graft occlusion. Similar severe scattered arthrosclerotic disease of the [place] vasculature and right lower extremity, with the posterior tibial artery seen crossing the ankle joint. No acute intrathoracic or intra- abdominal process. Assessment and Plan Assessment: 1. Acute left lower extremity ischemia 2. Femoral-femoral bypass graft occlusion 3. History of peripheral arterial disease status post fem-femoral bypass and left fem-popliteal bypass 4. Diabetes mellitus 5. Hypertension 6. Hyperlipidemia Plan: 1. Continue heparin drip for now 2. Keep n.p.o. 3. Patient is tentatively scheduled for open thrombectomy and femorofemoral and left femoropopliteal bypass revision, possibly later today 4. Rest of medical management per primary medical team Thank you for this consultation, we will continue to follow. The impression and plan of care has been dictated as directed. I performed a history and examination of this patient, discussed the same with the dictator. I agree with the dictator's note ,documented as a scribe. Any additional findings or plans will be noted.
[2023-09-23 10:53] LABS: African American GFR (CKD) >90 (>60 ml/min/1.73 sqM); Anion Gap 4 mmol/L; Blood Urea Nitrogen 20 mg/dL (9-20); Calcium 8.8 mg/dL (8.4-10.2); Carbon Dioxide 23 mmol/L (22-30); Chloride 107 mmol/L (98-107); Glucose 245 mg/dL (74-99); Non-African American GFR(CKD) 83 (>60 ml/min/1.73 sqM); Potassium 4.2 mmol/L (3.5-5.1); Sodium 134 mmol/L (137-145)
[2023-09-23 11:23] LABS: Glucose,Whole Blood 221 mg/dL (70-110)
[2023-09-23] MEDS: DAPAGLIFLOZIN PROPANEDIOL 10 MG TABLET PO SCH (11:38)
[2023-09-23] MEDS: LOSARTAN 50 MG TAB PO SCH (11:38)
[2023-09-23] MEDS: IV FLUID CONTINUATION 1,000 ML IV ONE (12:37)
[2023-09-23] MEDS: MIDAZOLAM 2 MG/2 ML VIAL IVP ONE (12:48)
[2023-09-23] MEDS: LACTATED RINGERS 1,000 ML IV ONE ×3 (12:58→18:56)
[2023-09-23] MEDS ORDERED: ONDANSETRON 4 MG/2 ML VIAL ONE (12:59)
[2023-09-23] MEDS: ONDANSETRON 4 MG/2 ML VIAL IVP ONE (13:00)
[2023-09-23] MEDS: DEXAMETHASONE SOD PHOSPHATE 4 MG/ML 1 ML VIAL IVP ONE (13:00)
[2023-09-23 13:07] LABS: Glucose,Whole Blood 210 mg/dL (70-110)
--- NOTE | 2023-09-23 13:12 | P.HPIM ---
History of Present Illness H&P Date: 09/23/23 History of present illness; patient is 77-year-old gentleman with past medical history significant for peripheral vascular disease involving lower extremities with history of femorofemoral bypass graft who was sent in to the ER from vascular surgery office for acute left limb ischemia. Patient has been having coldness of his left foot and decreased sensations for the last 2 days. Patient was following up at vascular surgery office where they did an ultrasound and it was suspicious of occlusion of the graft. Patient was immediately told to come to the ER Initial lab work done in the ER showed WBC 4.2, hemoglobin 14.3, platelet count 152, INR 0.9, sodium 130, potassium 4.4, BUN 24, creatinine 1.09, glucose 370 CT angio thoracic abdominal aorta with runoff showed loss of opacification invol ving the patient's tomorrowfemoral graft with minimal contrast opacification in the distal collateral vessels no on the left lower extremity concerning for graft occlusion Patient admitted to internal medicine service REVIEW OF SYSTEMS: CONSTITUTIONAL: No fever, no malaise, no fatigue. HEENT: No recent visual problems or hearing problems. Denied any sore throat. CARDIOVASCULAR: No chest pain, orthopnea, PND, no palpitations, no syncope. PULMONARY: No shortness of breath, no cough, no hemoptysis. GASTROINTESTINAL: No diarrhea, no nausea, no vomiting, no abdominal pain. NEUROLOGICAL: No headaches, no weakness, no numbness. HEMATOLOGICAL: Denies any bleeding or petechiae. GENITOURINARY: Denies any burning micturition, frequency, or urgency. MUSCULOSKELETAL/RHEUMATOLOGICAL: Denies any joint pain, swelling, or any muscle pain. ENDOCRINE: Denies any polyuria or polydipsia. The rest of the 14-point review of systems is negative. PHYSICAL EXAMINATION: GENERAL: The patient is alert and oriented x3, not in any acute distress. Well developed, well nourished. HEENT: Pupils are round and equally reacting to light. EOMI. No scleral icterus. No conjunctival pallor. Normocephalic, atraumatic. No pharyngeal erythema. No thyromegaly. CARDIOVASCULAR: S1 and S2 present. No murmurs, rubs, or gallops. PULMONARY: Chest is clear to auscultation, no wheezing or crackles. ABDOMEN: Soft, nontender, nondistended, normoactive bowel sounds. No palpable organomegaly. MUSCULOSKELETAL: No joint swelling or deformity. EXTREMITIES: No cyanosis, clubbing, or pedal edema. NEUROLOGICAL: Gross neurological examination did not reveal any focal deficits. SKIN: No rashes. Assessment and plan Acute left limb ischemia Femoral to femoral graft occlusion Hyponatremia Hypertension Insulin-dependent diabetes mellitus Hyperlipidemia History of peripheral arterial disease status post fem-femoral bypass and left fem-popliteal bypass] Monitor vital signs Monitor CBC Monitor CMP Continue telemetry monitoring Continue pharmacy with heparin Resume Lipitor Resume losartan and atenolol Monitor blood sugar levels, continue sliding scale insulin, resume home insulin regimen Results of CTA thoracic abdominal aorta runoff was noted Vascular surgery consulted Labs and medication were reviewed.. Continue same treatment. Continue with symptomatic treatment. Resume home medication. Monitor labs and vitals. DVT and GI prophylaxis. Further recommendations as per clinical course of the pa loren Dictation was produced using [employer] dictation software. please excuse any grammatical, word or spelling errors. Past Medical History Past Medical History: Cancer, Diabetes Mellitus, Deep Vein Thrombosis (DVT), GERD/Reflux, Hyperlipidemia, Hypertension, Skin Disorder, Sleep Apnea/CPAP/BIPAP, Vascular Disorder Additional Past Medical History / Comment(s): L groin infection cleared up now, PAD, R lower extremity pain/claudication, recent "skipped heart beat"/states sent to cardiology for surgical clearance for this reason, IDDM, bladder cancer 10-12 yrs ago. Hx DVT left leg X7 skin cancer with removal, get flakey skin an d sores at times," no problems right nowis getting a little scaley at this time CPAP not in use in quite some time". History of Any Multi-Drug Resistant Organisms: None Reported Past Surgical History: Bladder Surgery Additional Past Surgical History / Comment(s): Angiograms, multiple vascular surgeries bilateral legs including fem/fem bypass, fem/pop bypass with revision, R iliac stent, thrombectomy, cataract removals. Past Anesthesia/Blood Transfusion Reactions: No Reported Reaction Past Psychological History: Anxiety, Depression Smoking Status: Former smoker Past Alcohol Use History: Daily Past Drug Use History: None Reported - Past Family History Father Family Medical History: Cancer Additional Family Medical History / Comment(s): Bladder cancer. Medications and Allergies Home Medications Medication Instructions Recorded Confirmed Type Atorvastatin [Lipitor] 40 mg PO DAILY 10/17/22 09/22/23 History Empagliflozin [Jardiance] 25 mg PO DAILY 10/17/22 09/22/23 History Escitalopram Oxalate [Lexapro] 20 mg PO DAILY 10/17/22 09/22/23 History Fenofibric Acid (Choline) 135 mg PO DAILY 10/17/22 09/22/23 History [Trilipix] Insulin Aspart [NovoLOG Flexpen] 10 units SQ TID-W/MEALS 10/17/22 09/22/23 History Losartan Potassium [Cozaar] 100 mg PO DAILY 10/17/22 09/22/23 History Multivitamins, Thera [Multivitamin 1 tab PO DAILY 10/17/22 09/22/23 History (formulary)] Mv-Mn/Om3/Dha/Epa/Fish/Lut/Eligio 1 tab PO HS 10/17/22 09/22/23 History [Ocuvite Adult 50 Plus Softgel] [place]-3/Dha/Epa/Fish Oil [Fish Oil 3 cap PO HS 10/17/22 09/22/23 History 1,000 mg Softgel] Omeprazole Magnesium [PriLOSEC OTC] 20 mg PO DAILY 10/17/22 09/22/23 History Rivaroxaban [Xarelto] 15 mg PO DAILY 10/17/22 09/22/23 History atenoloL 100 mg PO DAILY 10/17/22 09/22/23 History Insulin Degludec [Tresiba] 40 units SQ HS 07/06/23 09/22/23 History Aspirin 81 mg PO DAILY tab 07/11/23 09/22/23 Rx Ginkgo Biloba [place] Extract [Ginkgo 125 mg PO DAILY 09/22/23 09/22/23 History Biloba] Vitamin E (Dl,Tocopheryl Acet) 400 unit PO DAILY 09/22/23 09/22/23 History [Vitamin E (400 Iu = 180 mg)] Allergies Allergy/AdvReac Type Severity Reaction Status Date / Time chlorhexidine Allergy Itching Verified 09/23/23 12:31 morphine Allergy Anxiety Verified 09/23/23 12:31 Physical Exam Vitals: Vital Signs Temp Pulse Resp BP Pulse Ox 09/23/23 07:33 97.7 F 80 16 150/72 95 09/23/23 06:22 98.2 F 80 16 156/85 97 09/23/23 02:08 66 16 154/76 97 09/22/23 22:42 81 16 160/82 96 09/22/23 19:56 87 16 174/92 96 09/22/23 18:37 82 18 169/80 95 09/22/23 15:54 97.9 F 75 16 171/79 97 Intake and Output 09/22/23 09/23/23 09/23/23 22:59 06:59 14:59 Other: Weight 81.647 kg Results CBC & Chem 7: 09/23/23 09:46 09/23/23 09:46 Labs: Abnormal Lab Results - Last 24 Hours (Table) 09/22/23 09/22/23 09/23/23 Range/Units 16:18 16:18 02:20 PT 9.7 L (10.0-12.5) sec APTT 21.3 L 59.6 H (22.0-30.0) sec Sodium 130 L (137-145) mmol/L BUN 24 H (9-20) mg/dL Glucose 370 H (74-99) mg/dL
[2023-09-23] MEDS: INSULIN ASPART (NovoLOG) 100 UNIT/ML VIAL SQ ONE ×2 (13:15→20:51)
[2023-09-23] MEDS ORDERED: HEPARIN SODIUM,PORCINE 5,000 UNIT/ML 1 ML VIAL ONE (13:30)
[2023-09-23] MEDS ORDERED: fentaNYL (PF) 50 MCG/ML 2 ML AMP ONE (13:30)
[2023-09-23] MEDS ORDERED: NEOSTIGMINE 1 MG/ML 10 ML VIAL ONE (13:30)
[2023-09-23] MEDS ORDERED: ROCURONIUM 10 MG/ML (5 ML VIAL) IV ONE (13:30)
[2023-09-23] MEDS ORDERED: HYDROmorphone (PF) 1 MG/ML ONE (13:30)
[2023-09-23] MEDS ORDERED: GLYCOPYRROLATE 0.2 MG/ML 2 ML VIAL ONE (13:30)
[2023-09-23] MEDS ORDERED: HEPARIN SODIUM,PORCINE 10,000 UNIT/ML 1 ML VIAL ONE (13:30)
[2023-09-23] MEDS ORDERED: PHENYLEPHRINE 10 MG/ML VIAL ONE (13:30)
[2023-09-23] MEDS ORDERED: SUCCINYLCHOLINE CHLORIDE 200 MG/10 ML VIAL IV ONE (13:30)
[2023-09-23] MEDS ORDERED: PROPOFOL 10 MG/ML 20 ML VIAL IV ONE (13:30)
[2023-09-23] MEDS ORDERED: LIDOCAINE 1% INJ 10MG/ML (20 ML MDV) ONE (13:30)
[2023-09-23] MEDS: THROMBIN (BOVINE) 5,000 UNIT VIAL MISCELLANE ONE ×2 (14:21→16:10)
[2023-09-23] MEDS: HEPARIN SODIUM (1,000 UNIT/ML) 2,000 UNIT in SODIUM CHLORIDE 0.9% 1,000 ML IRRIGATION ONE (14:24)
[2023-09-23] MEDS: ceFAZolin 2 GM in SODIUM CHLORIDE 0.9% 500 ML 500 ML IRRIGATION ONE (14:25)
[2023-09-23] MEDS: IOPAMIDOL-370 100ML BTL MISCELLANE ONE (14:31)
[2023-09-23] MEDS: HEPARIN SODIUM PORCINE IRRIGATION ONE (16:18)
[2023-09-23] MEDS: SODIUM CHLORIDE 0.9% IRRIGATION ONE (16:18)
[2023-09-23] MEDS: DEXTROSE 5%-LACTATED RINGERS 1,000 ML IV ONE (16:19)
[2023-09-23 18:34] LABS: HGB 12.7 gm/dL (13.0-17.5); MCH 28.6 pg (25.0-35.0); MCHC 32.5 g/dL (31.0-37.0); Mean Platelet Volume 8.5; Platelet Count 209 k/uL (150-450); RBC 4.44 m/uL (4.30-5.90); WBC 8.2 k/uL (3.8-10.6)
[2023-09-23 20:33] LABS: Glucose,Whole Blood 252 mg/dL (70-110)
--- NOTE | 2023-09-23 20:41 | P.OP ---
Date of Procedure: 09/23/23 Preoperative Diagnosis: Critical limb ischemia left lower extremity Acute thrombosis of femorofemoral and left femoral popliteal artery bypass Postoperative Diagnosis: Same Procedure(s) Performed: Open thrombectomy of femorofemoral bypass and femoral to popliteal bypass Selective angiogram left lower extremity third order Revision of femoral to popliteal artery bypass with right femoral to left tibioperoneal trunk bypass with CryoVein graft 4 compartment fasciotomy Anesthesia: GETA Surgeon: Meliton Crane Estimated Blood Loss (ml): 400 Pathology: none sent Condition: stable Disposition: PACU Indications for Procedure: 77-year-old gentleman with history of left iliac stent which occluded and that he required femoral-femoral bypass and left femoral-popliteal bypass at a different facility several years ago that ultimately occluded and became infected and then he required revision and explantation of his previous grafts. He had a femoral-femoral graft to left popliteal portion of the existing bypass with CryoVein approximately 6 months ago. He has been out of his blood thinner and for 3 weeks has not taking any medications for anticoagulation and presented to the hospital after being seen in the office for occlusion of his bypass grafts. He presents today for possible thrombectomy and revision for revascularization of his left lower extremity. ABIs in the office demonstrated no flow to the left leg and he underwent a CTA that demonstrated no flow through the bypasses with reconstitution distally at the tibioperoneal trunk. Operative Findings: Chronic thrombus within the bypass with completely occluded CryoVein bypass graft. Minimal backbleeding noted from the graft. Poor outflow with two-vessel takeoff and occlusion of the anterior tibial just after takeoff as well as posterior tibial artery. There is some reconstitution at the foot of the anterior tibial artery. Description of Procedure: After written and informed consent was obtained from the patient all risks benefits and competitions were described the patient is brought to the operative suite and laid in a supine position. The area of the abdomen, bilateral lower extremity was prepped and draped in usual sterile fashion after appropriate anesthetic was performed per the anesthesiologist. A timeout was performed in normal fashion. Antibiotics were administered prior to incision. An incision was created over the bypass graft at the femorofemoral site at the midline with a 10 blade scalpel and dissection was carried down to the graft and proximal distal control was obtained with Vesseloops. Graftotomy was then created with an 11 blade scalpel and [place] catheter was placed distally under fluoroscopic guidance down to the popliteal graft and thrombectomy was performed with large amount of thrombus removed. No backbleeding was noted and therefore decision was made to make a dissection down to the popliteal segment. An incision was created and dissection was carried down to the popliteal aspect of the graft and this was dissected free in a circumferential manner and controlled with Vesseloops. Once again thrombectomy was performed with a 5 Carolina and 2 Carolina with minimal backbleeding noted from the distal aspect of the bypass at the popliteal artery. Angiogram was then obtained at that point with minimal flow noted past the bypass with patent tibioperoneal trunk noted but anterior tibial artery appeared to be occluded just after takeoff with reconstitution slowly to the foot. At that time decision was made to perform a revision of the bypass from the femoral graft to the left tibioperoneal trunk. A [place] catheter was then placed proximally to the femorofemoral bypass for inflow and large amount of thrombus was removed with good inflow noted. This was then clamped and patient was given heparin and followed with ACT's. A counterincision was created at the left groin to allow for tunneling of the CryoVein. Attention was then placed to the tibioperoneal trunk and incision was created just medial to the lower leg and dissection was carried down to the tibioperoneal trunk which was controlled with Vesseloops proximally and distally at the posterior tibial and anterior tibial arteries. The 70 cm CryoVein was prepped in the usual fashion and once completed it was tunneled from the distal incision through the counterincisions to the midportion of the femorofemoral bypass. The proximal greater saphenous vein was then spatulated and end-to-end anastomosis was then created with 6-0 Prolene suture in a running fashion to the existing femoral graft. The tibial peroneal trunk was then controlled and arteriotomy was created with 11 blade scalpel and extended with Pott Alegre scissors. There was good backbleeding noted from the anterior tibial artery. The vein was then spatulated and an end-to-side anastomosis was created with 6-0 Prolene suture in a running fashion. Prior to last sutures being placed backbleeding was once again assessed which was adequate and proximal control was released revealing good pulsatile blood flow. Final sutures were placed and good pulsatile blood flow was noted within the bypass. Doppler signals were then noted distal to the bypass and were multiphasic. There was an area of bleeding at the midportion of the CryoVein and dissection was carried down through the skin and a previous suture on the branch was loosened and therefore this area was controlled with silk suture. Attention was then placed to performing the fasciotomy. 2 incisions 1 in the lateral and medial aspect of the lower leg were created from just below the knee to the ankle with a 10 blade scalpel and dissection was carried down to the fascia. The fascia was then incised both on the anterior compartment and lateral compartment was well as the posterior compartment and deep compartment. Once all these areas were dissected free and loosened the muscle was assessed which appeared to be intact and slightly ischemic but with motor intact with electrocautery. The areas were then copiously irrigated with antibiotic solution. The incisions were then closed in a multilayer fashion after hemostasis was assured with Surgicel powder and the skin was then cleansed and dressings were placed. The fasciotomy sites were approximated with Vesseloops and a Troy sandal fashion. The patient tolerated procedure well and had capillary refill at the left foot at the conclusion of the procedure and was sent to PACU for recovery. Due to the severity of his arterial occlusive disease as well as his previous bypasses if this bypass does not last he will likely require an above-knee amputation.
[2023-09-23] MEDS: INSULIN ASPART (NovoLOG) 100 UNIT/ML VIAL SQ SCH ×2 (21:09)
[2023-09-23] MEDS: NON FORMULARY DRUG (Omega-3/Dha/Epa/Fish Oil [Fish Oil 1,000 Mg Softgel] 1 EACH Capsule) PO SCH (22:12)
[2023-09-23 22:17] LABS: Glucose,Whole Blood 260 mg/dL (70-110)
[2023-09-23] MEDS: INSULIN DETEMIR (LEVEMIR) 100 UNIT/ML SYR SQ SCH (22:17)
[2023-09-23] MEDS: VIT A,C & E-LUTEIN-MINERALS 1 EACH TAB PO SCH (23:31)
[2023-09-24] MEDS: HYDROmorphone 0.5 MG/0.5 ML SYRINGE IVP PRN (00:02)
[2023-09-24] MEDS: HYDROcodone/APAP 5-325MG 1 EACH TAB PO PRN (03:47)
[2023-09-24 06:36] LABS: Glucose,Whole Blood 179 mg/dL (70-110)
--- NOTE | 2023-09-24 08:23 | FL ---
EXAMINATION TYPE: FL guidance operating room Intraoperative/procedural fluoroscopic services were pro vided. Total fluoroscopy time is 95 seconds with a total of [id number] submitted images to PACS. Please see the operative/procedural note for further details. DAP: 6.6047 mGym2
[2023-09-24] MEDS: ASPIRIN 81 MG PO SCH (10:00)
[2023-09-24] MEDS: ATORVASTATIN 40 MG TAB PO SCH (10:00)
[2023-09-24] MEDS: MULTIVITAMINS, THERA 1 EACH TAB PO SCH (10:00)
[2023-09-24] MEDS: PANTOPRAZOLE 40 MG TABLET PO SCH (10:00)
[2023-09-24] MEDS: RIVAROXABAN 15 MG TAB PO SCH (10:00)
[2023-09-24] MEDS: VITAMIN E (DL,TOCOPHERYL ACET) 400 UNIT (180 MG) CAP PO SCH (10:01)
[2023-09-24] MEDS: atenoloL 50 MG TAB PO SCH (10:01)
[2023-09-24] MEDS: FENOFIBRATE 160 MG TAB PO SCH (10:01)
[2023-09-24] MEDS: ESCITALOPRAM 20 MG TAB PO SCH (10:01)
[2023-09-24 11:38] LABS: Glucose,Whole Blood 211 mg/dL (70-110)
--- NOTE | 2023-09-24 12:44 | P.PN ---
Subjective Progress Note Date: 09/24/23 patient is 77-year-old gentleman with past medical history significant for peripheral vascular disease involving lower extremities with history of femorofemoral bypass graft who was sent in to the ER from vascular surgery office for acute left limb ischemia. Patient has been having coldness of his left foot and decreased sensations for the last 2 days. Patient was following up at vascular surgery office where they did an ultrasound and it was suspicious of occlusion of the graft. Patient was immediately told to come to the ER Initial lab work done in the ER showed WBC 4.2, hemoglobin 14.3, platelet count 152, INR 0.9, sodium 130, potassium 4.4, BUN 24, creatinine 1.09, glucose 370 CT angio thoracic abdominal aorta with runoff showed loss of opacification involving the patient's tomorrowfemoral graft with minimal contrast opacification in the distal collateral vessels no on the left lower extremity concerning for graft occlusion Patient admitted to internal medicine service 09/23. Patient seen and examined. S/p Open thrombectomy of femorofemoral bypass and femoral to popliteal bypass, Revision of femoral to popliteal artery bypass with right femoral to left tibioperoneal trunk bypass with CryoVein graft and 4 compartment fasciotomy. Complaining of pain in his left leg. Discussed with him regarding the need for him to go to rehab, patient is open to the idea of rehab. REVIEW OF SYSTEMS: CONSTITUTIONAL: No fever, no malaise,. CARDIOVASCULAR: No chest pain, no palpitations, no syncope. PULMONARY: No shortness of breath, no cough, GASTROINTESTINAL: No diarrhea, no nausea, no vomiting, no abdominal pain. NEUROLOGICAL: No headaches, no weakness, PHYSICAL EXAMINATION: GENERAL: The patient is alert and oriented x3, not in any acute distress. Well developed, well nourished. HEENT: Pupils are round and equally reacting to light. EOMI. No scleral icterus. No conjunctival pallor. Normocephalic, atraumatic. No pharyngeal erythema. No thyromegaly. CARDIOVASCULAR: S1 and S2 present. No murmurs, rubs, or gallops. PULMONARY: Chest is clear to auscultation, no wheezing or crackles. ABDOMEN: Soft, nontender, nondistended, normoactive bowel sounds. No palpable organomegaly. MUSCULOSKELETAL: No joint swelling or deformity. EXTREMITIES: Left leg dressing seen NEUROLOGICAL: Gross neurological examination did not reveal any focal deficits. SKIN: No rashes. Assessment and plan Acute left limb ischemia Femoral to femoral graft occlusion Hyponatremia Hypertension Insulin-dependent diabetes mellitus, HbA1c level on 09/23 is 11.7 Hyperlipidemia History of peripheral arterial disease status post fem-femoral bypass and left fem-popliteal bypass] Monitor vital signs Monitor CBC Monitor CMP Continue telemetry monitoring S/p Open thrombectomy of femorofemoral bypass and femoral to popliteal bypass, Revision of femoral to popliteal artery bypass with right femoral to left tibioperoneal trunk bypass with CryoVein graft and 4 compartment fasciotomy Continue wound care Continue pharmacy with heparin Continue Lipitor Continue losartan and atenolol Monitor blood sugar levels, continue current insulin regimen, last HbA1c level was 11.7 on 09/13 PT and OT consulted Vascular surgery following Labs and medication were reviewed.. Continue same treatment. Continue with symptomatic treatment. Resume home medication. Monitor labs and vitals. DVT and GI prophylaxis. Further recommendations as per clinical course of the patient Dictation was produced using [email or web address] dictation software. please excuse any grammatical, word or spelling errors. Objective - Vital Signs Vital signs: Vital Signs Temp 98.8 F 09/23/23 21:51 Pulse 83 09/24/23 07:12 Resp 18 09/24/23 04:55 BP 127/53 09/24/23 04:55 Pulse Ox 99 09/24/23 04:55 FiO2 Intake & Output 09/23/23 09/24/23 09/24/23 18:59 06:59 18:59 Intake Total 2430.073 200 120 Output Total 1300 Balance 1130.073 200 120 Weight 81.647 kg Intake: IV 2204 200 Intake, IV Titration 226.073 Amount Heparin Sod,Pork in 0.45% 226.073 NaCl 25,000 unit In 0.45 % NaCl 1 250ml.bag @ 18 UNITS/KG/HR 14.696 mls/hr IV .Q17H1M [facility] Rx#: [id number] Oral 120 Output: Urine 900 Estimated Blood Loss 400 - Labs CBC & Chem 7: 09/23/23 18:25 09/23/23 09:46 Labs: Abnormal Lab Results - Last 24 Hours (Table) 09/23/23 09/23/23 09/23/23 Range/Units 13:05 18:25 20:32 Hgb 12.7 L (13.0-17.5) gm/dL APTT (22.0-30.0) sec POC Glucose (mg/dL) 210 H 252 H (70-110) mg/dL Hemoglobin A1c (<=6.0) % 09/23/23 09/24/23 09/24/23 Range/Units 22:15 02:24 02:24 Hgb (13.0-17.5) gm/dL APTT 56.9 H (22.0-30.0) sec POC Glucose (mg/dL) 260 H (70-110) mg/dL Hemoglobin A1c 11.7 H (<=6.0) % 09/24/23 09/24/23 Range/Units 06:34 11:35 Hgb (13.0-17.5) gm/dL APTT (22.0-30.0) sec POC Glucose (mg/dL) 179 H 211 H (70-110) mg/dL Hemoglobin A1c (<=6.0) %
--- NOTE | 2023-09-24 12:59 | P.PN ---
Subjective Progress Note Date: 09/24/23 Principal diagnosis: Left lower extremity acute ischemia Patient is seen and examined today as a follow-up. Yesterday he underwent thrombectomy of femoral-femoral bypass and femoral to popliteal bypass and revision of femorofemoral and femoropopliteal bypass. He also underwent 4 compartment fasciotomy of the left lower extremity. Patient overall is doing well. He states pain is well-managed. He is having some saturation through his dressing at fasciotomy site. Pain to left lower extremity otherwise improved, other than surgical pain. He has been afebrile. Objective - Vital Signs Vital signs: Vital Signs Temp 98.8 F 09/23/23 21:51 Pulse 83 09/24/23 07:12 Resp 18 09/24/23 04:55 BP 127/53 09/24/23 04:55 Pulse Ox 99 09/24/23 04:55 FiO2 Intake & Output 09/23/23 09/24/23 09/24/23 18:59 06:59 18:59 Intake Total 2430.073 200 120 Output Total 1300 Balance 1130.073 200 120 Weight 81.647 kg Intake: IV 2204 200 Intake, IV Titration 226.073 Amount Heparin Sod,Pork in 0.45% 226.073 NaCl 25,000 unit In 0.45 % NaCl 1 250ml.bag @ 18 UNITS/KG/HR 14.696 mls/hr IV .Q17H1M [facility] Rx#: [id number] Oral 120 Output: Urine 900 Estimated Blood Loss 400 - Exam General appearance: The patient is alert, oriented, appears in no acute distres s. HET: Head is normocephalic and atraumatic. Pupils are equal and reactive. Neck: Supple. Heart: Regular. Lungs: Equal expansion, normal respiratory effort. Abdomen: Soft, nontender, nondistended. Extremities: Left lower extremity with PT Doppler signal, bypass with multiphasic Doppler signal. Left groin with Prevena wound VAC in place with dressing to medial aspect of thigh with some serosanguineous drainage. Fasciotomy site muscle is nice and pink, serosanguineous drainage noted on dress ing. No active bleeding. Foot cool to touch, capillary refill 5 to 6 seconds. Neurological: No focal deficits. - Labs CBC & Chem 7: 09/23/23 18:25 09/23/23 09:46 Labs: Abnormal Lab Results - Last 24 Hours (Table) 09/23/23 09/23/23 09/23/23 Range/Units 09:46 11:22 13:05 Hgb (13.0-17.5) gm/dL APTT (22.0-30.0) sec Sodium 134 L (137-145) mmol/L Glucose 245 H (74-99) mg/dL POC Glucose (mg/dL) 221 H 210 H (70-110) mg/dL Hemoglobin A1c (<=6.0) % 09/23/23 09/23/23 09/23/23 Range/Units 18:25 20:32 22:15 Hgb 12.7 L (13.0-17.5) gm/dL APTT (22.0-30.0) sec Sodium (137-145) mmol/L Glucose (74-99) mg/dL POC Glucose (mg/dL) 252 H 260 H (70-110) mg/dL Hemoglobin A1c (<=6.0) % 09/24/23 09/24/23 09/24/23 Range/Units 02:24 02:24 06:34 Hgb (13.0-17.5) gm/dL APTT 56.9 H (22.0-30.0) sec Sodium (137-145) mmol/L Glucose (74-99) mg/dL POC Glucose (mg/dL) 179 H (70-110) mg/dL Hemoglobin A1c 11.7 H (<=6.0) % Assessment and Plan Assessment: 1. Postop day #1 open thrombectomy femoral-femoral bypass and femoral to popliteal bypass, revision of femoral to popliteal artery bypass with right femoral to left tibioperoneal trunk bypass with CryoVein graft and 4 compartment fasciotomy 2. Critical limb ischemia left lower extremity with acute thrombosis of femoral-femoral and left femoral-popliteal artery bypass 3. History of peripheral arterial disease status post fem-femoral bypass and left fem-popliteal bypass 4. Diabetes mellitus 5. Hypertension 6. Hyperlipidemia Plan: 1. Resumed on his Xarelto 2. Heart healthy diet 3. Dressing change daily to fasciotomy site with Adaptic, 4 x 4, ABD and Kerlix 4. Consult to physical therapy, light pressure to left lower extremity 5. Closure of fasciotomy site to be determined 6. Rest of medical management per primary medical team Thank you for this consultation, we will continue to follow. The impression and plan of care has been dictated as directed. I performed a history and examination of this patient, discussed the same with the dictator. I agree with the dictator's note ,documented as a scribe. Any additional findings or plans will be noted.
[2023-09-24 13:40] VITALS: BMI 26.6
[2023-09-24 16:25] LABS: Glucose,Whole Blood 145 mg/dL (70-110)
[2023-09-24 20:08] LABS: Glucose,Whole Blood 199 mg/dL (70-110)
[2023-09-24] MEDS: CALCIUM CARBONATE 500 MG CHEWABLE PO PRN (20:27)
[2023-09-25 06:03] LABS: Glucose,Whole Blood 164 mg/dL (70-110)
--- NOTE | 2023-09-25 09:52 | P.PN ---
Subjective Progress Note Date: 09/25/23 Principal diagnosis: Left lower extremity acute ischemia Patient is seen and examined today as a follow-up. He is status post underwent thrombectomy of femoral-femoral bypass and femoral to popliteal bypass and revision of femorofemoral and femoropopliteal bypass. He also underwent 4 compartment fasciotomy of the left lower extremity. Patient overall is doing well. He states pain is well-managed. He is having some saturation through his dressing at fasciotomy site. Pain to left lower extremity otherwise improved, other than surgical pain. He has been afebrile. Objective - Vital Signs Vital signs: Vital Signs Temp 97.9 F 09/25/23 07:15 Pulse 97 09/25/23 07:17 Resp 16 09/25/23 07:15 BP 121/84 09/25/23 07:15 Pulse Ox 97 09/25/23 07:15 FiO2 Intake & Output 09/24/23 09/25/23 09/25/23 18:59 06:59 18:59 Intake Total 600 Output Total 400 450 Balance 200 -450 Weight 81.647 kg 81.647 kg Intake: Oral 600 Output: Urine 400 450 Other: Voiding Method Urinal - Exam General appearance: The patient is alert, oriented, appears in no acute distress. HET: Head is normocephalic and atraumatic. Pupils are equal and reactive. Neck: Supple. Heart: Regular. Lungs: Equal expansion, normal respiratory effort. Abdomen: Soft, nontender, nondistended. Extremities: Left lower extremity with PT Doppler signal, bypass with Doppler signal. Left groin with Prevena wound VAC in place with dressing to medial aspect of thigh with some serosanguineous drainage. Fasciotomy site muscle is nice and pink, serosanguineous drainage noted on dressing. No active bleeding. Foot cool to touch, capillary refill 5 to 6 seconds. Neurological: No focal deficits. - Labs CBC & Chem 7: 09/25/23 10:31 09/23/23 09:46 Labs: Abnormal Lab Results - Last 24 Hours (Table) 09/24/23 09/24/23 09/24/23 Range/Units 11:35 16:24 20:07 POC Glucose (mg/dL) 211 H 145 H 199 H (70-110) mg/dL 09/25/23 Range/Units 06:01 POC Glucose (mg/dL) 164 H (70-110) mg/dL Assessment and Plan Assessment: 1. Postop day #1 open thrombectomy femoral-femoral bypass and femoral to popliteal bypass, revision of femoral to popliteal artery bypass with right femoral to left tibioperoneal trunk bypass with CryoVein graft and 4 compartment fasciotomy 2. Critical limb ischemia left lower extremity with acute thrombosis of femoral-femoral and left femoral-popliteal artery bypass 3. History of peripheral arterial disease status post fem-femoral bypass and left fem-popliteal bypass 4. Diabetes mellitus 5. Hypertension 6. Hyperlipidemia Plan: 1. Resumed on his Xarelto 2. Heart healthy diet 3. Dressing change daily to fasciotomy site with Adaptic, 4 x 4, ABD and Kerlix 4. Consult to physical therapy, light pressure to left lower extremity 5. Closure of fasciotomy site tentatively scheduled for 09/28/2023 6. Rest of medical management per primary medical team Thank you for this consultation, we will continue to follow. The impression and plan of care has been dictated as directed. I performed a history and examination of this patient, discussed the same with the dictator. I agree with the dictator's note ,documented as a scribe. Any additional findings or plans will be noted.
[2023-09-25 10:58] LABS: HCT 32.1 % (39.0-53.0); HGB 10.1 gm/dL (13.0-17.5); Hypochromasia Slight; MCH 28.7 pg (25.0-35.0); MCHC 31.6 g/dL (31.0-37.0); MCV 90.8 fL (80.0-100.0); Mean Platelet Volume 10.1; Platelet Count 157 k/uL (150-450); RBC 3.53 m/uL (4.30-5.90); RDW 15.2 % (11.5-15.5); WBC 6.3 k/uL (3.8-10.6)
[2023-09-25 11:22] LABS: ALT 16 U/L (4-49); AST 27 U/L (17-59); African American GFR (CKD) 42 (>60 ml/min/1.73 sqM); Albumin 2.8 g/dL (3.5-5.0); Alkaline Phosphatase 52 U/L (38-126); Anion Gap 4 mmol/L; Blood Urea Nitrogen 46 mg/dL (9-20); Calcium 8.4 mg/dL (8.4-10.2); Carbon Dioxide 24 mmol/L (22-30); Chloride 104 mmol/L (98-107); Glucose 116 mg/dL (74-99); Non-African American GFR(CKD) 36 (>60 ml/min/1.73 sqM); Potassium 4.4 mmol/L (3.5-5.1); Sodium 132 mmol/L (137-145); Total Bilirubin 0.8 mg/dL (0.2-1.3); Total Protein 5.4 g/dL (6.3-8.2)
[2023-09-25 12:00] LABS: Glucose,Whole Blood 143 mg/dL (70-110)
--- NOTE | 2023-09-25 13:07 | P.PN ---
Subjective Progress Note Date: 09/25/23 patient is 77-year-old gentleman with past medical history significant for peripheral vascular disease involving lower extremities with history of femorofemoral bypass graft who was sent in to the ER from vascular surgery office for acute left limb ischemia. Patient has been having coldness of his left foot and decreased sensations for the last 2 days. Patient was following up at vascular surgery office where they did an ultrasound and it was suspicious of occlusion of the graft. Patient was immediately told to come to the ER Initial lab work done in the ER showed WBC 4.2, hemoglobin 14.3, platelet count 152, INR 0.9, sodium 130, potassium 4.4, BUN 24, creatinine 1.09, glucose 370 CT angio thoracic abdominal aorta with runoff showed loss of opacification involving the patient's tomorrowfemoral graft with minimal contrast opacification in the distal collateral vessels no on the left lower extremity concerning for graft occlusion Patient admitted to internal medicine service 09/23. Patient seen and examined. S/p Open thrombectomy of femorofemoral bypass and femoral to popliteal bypass, Revision of femoral to popliteal artery bypass with right femoral to left tibioperoneal trunk bypass with CryoVein graft and 4 compartment fasciotomy. Complaining of pain in his left leg. Discussed with him regarding the need for him to go to rehab, patient is open to the idea of rehab. 09/24. Patient seen and examined laying comfortably in the bed. Blood work done today showed WBC 6.3, hemoglobin 9.1, sodium 132, potassium 4.4, BUN 46, creatinine 1.79. Patient being scheduled for closure of fistulotomy site on 09/27 REVIEW OF SYSTEMS: CONSTITUTIONAL: No fever, no malaise,. CARDIOVASCULAR: No chest pain, no palpitations, no syncope. PULMONARY: No shortness of breath, no cough, GASTROINTESTINAL: No diarrhea, no nausea, no vomiting, no abdominal pain. NEUROLOGICAL: No headaches, no weakness, PHYSICAL EXAMINATION: GENERAL: The patient is alert and oriented x3, not in any acute distress. Well developed, well nourished. HEENT: Pupils are round and equally reacting to light. EOMI. No scleral icterus. No conjunctival pallor. Normocephalic, atraumatic. No pharyngeal erythema. No thyromegaly. CARDIOVASCULAR: S1 and S2 present. No murmurs, rubs, or gallops. PULMONARY: Chest is clear to auscultation, no wheezing or crackles. ABDOMEN: Soft, nontender, nondistended, normoactive bowel sounds. No palpable organomegaly. MUSCULOSKELETAL: No joint swelling or deformity. EXTREMITIES: Left leg dressing seen NEUROLOGICAL: Gross neurological examination did not reveal any focal deficits. SKIN: No rashes. Assessment and plan Acute left limb ischemia Femoral to femoral graft occlusion Hyponatremia Hypertension Insulin-dependent diabetes mellitus, HbA1c level on 09/23 is 11.7 Hyperlipidemia History of peripheral arterial disease status post fem-femoral bypass and left fem-popliteal bypass] Monitor vital signs Monitor CBC Monitor CMP Continue telemetry monitoring S/p Open thrombectomy of femorofemoral bypass and femoral to popliteal bypass, Revision of femoral to popliteal artery bypass with right femoral to left tibioperoneal trunk bypass with CryoVein graft and 4 compartment fasciotomy Continue wound care Continue pharmacy with heparin Continue Lipitor Continue losartan and atenolol Monitor blood sugar levels, continue current insulin regimen, last HbA1c level was 11.7 on 09/13 PT and OT recommend rehab Vascular surgery following,Closure of fasciotomy site tentatively scheduled for 09/28/2023 Labs and medication were reviewed.. Continue same treatment. Continue with symptomatic treatment. Resume home medication. Monitor labs and vitals. DVT and GI prophylaxis. Further recommendations as per clinical course of the patient Dictation was produced using [employer] dictation software. please excuse any grammatical, word or spelling errors. Objective - Vital Signs Vital signs: Vital Signs Temp 97.9 F 09/25/23 07:15 Pulse 97 09/25/23 07:17 Resp 16 09/25/23 08:00 BP 121/84 09/25/23 07:15 Pulse Ox 97 09/25/23 07:15 FiO2 Intake & Output 09/24/23 09/25/23 09/25/23 18:59 06:59 18:59 Intake Total 600 Output Total 400 450 Balance 200 -450 Weight 81.647 kg 81.647 kg Intake: Oral 600 Output: Urine 400 450 Other: Voiding Method Urinal Urinal - Labs CBC & Chem 7: 09/25/23 10:31 09/25/23 10:31 Labs: Abnormal Lab Results - Last 24 Hours (Table) 09/24/23 09/24/23 09/25/23 Range/Units 16:24 20:07 06:01 RBC (4.30-5.90) m/uL Hgb (13.0-17.5) gm/dL Hct (39.0-53.0) % Sodium (137-145) mmol/L BUN (9-20) mg/dL Creatinine (0.66-1.25) mg/dL Glucose (74-99) mg/dL POC Glucose (mg/dL) 145 H 199 H 164 H (70-110) mg/dL Total Protein (6.3-8.2) g/dL Albumin (3.5-5.0) g/dL 09/25/23 09/25/23 09/25/23 Range/Units 10:31 10:31 11:55 RBC 3.53 L (4.30-5.90) m/uL Hgb 10.1 L (13.0-17.5) gm/dL Hct 32.1 L (39.0-53.0) % Sodium 132 L (137-145) mmol/L BUN 46 H (9-20) mg/dL Creatinine 1.79 H (0.66-1.25) mg/dL Glucose 116 H (74-99) mg/dL POC Glucose (mg/dL) 143 H (70-110) mg/dL Total Protein 5.4 L (6.3-8.2) g/dL Albumin 2.8 L (3.5-5.0) g/dL
[2023-09-25 16:44] LABS: Glucose,Whole Blood 169 mg/dL (70-110)
[2023-09-25 20:14] LABS: Glucose,Whole Blood 227 mg/dL (70-110)
[2023-09-26 06:15] LABS: Glucose,Whole Blood 166 mg/dL (70-110)
[2023-09-26 11:16] LABS: Glucose,Whole Blood 133 mg/dL (70-110)
--- NOTE | 2023-09-26 14:19 | P.PN ---
Subjective Progress Note Date: 09/26/23 patient is 77-year-old gentleman with past medical history significant for peripheral vascular disease involving lower extremities with history of femorofemoral bypass graft who was sent in to the ER from vascular surgery office for acute left limb ischemia. Patient has been having coldness of his left foot and decreased sensations for the last 2 days. Patient was following up at vascular surgery office where they did an ultrasound and it was suspicious of occlusion of the graft. Patient was immediately told to come to the ER Initial lab work done in the ER showed WBC 4.2, hemoglobin 14.3, platelet count 152, INR 0.9, sodium 130, potassium 4.4, BUN 24, creatinine 1.09, glucose 370 CT angio thoracic abdominal aorta with runoff showed loss of opacification involving the patient's tomorrowfemoral graft with minimal contrast opacification in the distal collateral vessels no on the left lower extremity concerning for graft occlusion Patient admitted to internal medicine service 09/23. Patient seen and examined. S/p Open thrombectomy of femorofemoral bypass and femoral to popliteal bypass, Revision of femoral to popliteal artery bypass with right femoral to left tibioperoneal trunk bypass with CryoVein graft and 4 compartment fasciotomy. Complaining of pain in his left leg. Discussed with him regarding the need for him to go to rehab, patient is open to the idea of rehab. 09/24. Patient seen and examined laying comfortably in the bed. Blood work done today showed WBC 6.3, hemoglobin 9.1, sodium 132, potassium 4.4, BUN 46, creatinine 1.79. Patient being scheduled for closure of fistulotomy site on 09/27 09/25. Patient seen and examined. No acute issues overnight REVIEW OF SYSTEMS: CONSTITUTIONAL: No fever, no malaise,. CARDIOVASCULAR: No chest pain, no palpitations, no syncope. PULMONARY: No shortness of breath, no cough, GASTROINTESTINAL: No diarrhea, no nausea, no vomiting, no abdominal pain. NEUROLOGICAL: No headaches, no weakness, PHYSICAL EXAMINATION: GENERAL: The patient is alert and oriented x3, not in any acute distress. Well developed, well nourished. HEENT: Pupils are round and equally reacting to light. EOMI. No scleral icterus. No conjunctival pallor. Normocephalic, atraumatic. No pharyngeal erythema. No thyromegaly. CARDIOVASCULAR: S1 and S2 present. No murmurs, rubs, or gallops. PULMONARY: Chest is clear to auscultation, no wheezing or crackles. ABDOMEN: Soft, nontender, nondistended, normoactive bowel sounds. No palpable organomegaly. MUSCULOSKELETAL: No joint swelling or deformity. EXTREMITIES: Left leg dressing seen NEUROLOGICAL: Gross neurological examination did not reveal any focal deficits. SKIN: No rashes. Assessment and plan Acute left limb ischemia Femoral to femoral graft occlusion Hyponatremia Hypertension Insulin-dependent diabetes mellitus, HbA1c level on 09/23 is 11.7 Hyperlipidemia History of peripheral arterial disease status post fem-femoral bypass and left fem-popliteal bypass] Monitor vital signs Monitor CBC Monitor CMP Continue telemetry monitoring S/p Open thrombectomy of femorofemoral bypass and femoral to popliteal bypass, Revision of femoral to popliteal artery bypass with right femoral to left tibioperoneal trunk bypass with CryoVein graft and 4 compartment fasciotomy Continue wound care pharmacy dose heparin was discontinued and patient was placed back on Xarelto Continue Lipitor Continue losartan and atenolol Monitor blood sugar levels, continue current insulin regimen, last HbA1c level was 11.7 on 09/13 PT and OT recommend rehab Vascular surgery following,Closure of fasciotomy site tentatively scheduled for 09/28/2023 Labs and medication were reviewed.. Continue same treatment. Continue with symptomatic treatment. Resume home medication. Monitor labs and vitals. DVT and GI prophylaxis. Further recommendations as per clinical course of the patient Dictation was produced using [employer] dictation software. please excuse any grammatical, word or spelling errors. Objective - Vital Signs Vital signs: Vital Signs Temp 97.9 F 09/26/23 08:00 Pulse 61 09/26/23 08:00 Resp 16 09/26/23 08:00 BP 116/58 09/26/23 08:00 Pulse Ox 95 09/26/23 08:00 FiO2 Intake & Output 09/25/23 09/26/23 09/26/23 18:59 06:59 18:59 Intake Total 480 138 Output Total 400 500 Balance 480 -400 -362 Intake: IV 20 Invasive Line 1 10 Invasive Line 3 10 Oral 480 118 Output: Urine 400 500 Other: Voiding Method Urinal Urinal - Labs CBC & Chem 7: 09/25/23 10:31 09/25/23 10:31 Labs: Abnormal Lab Results - Last 24 Hours (Table) 09/25/23 09/25/23 09/25/23 Range/Units 10:31 10:31 11:55 RBC 3.53 L (4.30-5.90) m/uL Hgb 10.1 L (13.0-17.5) gm/dL Hct 32.1 L (39.0-53.0) % Sodium 132 L (137-145) mmol/L BUN 46 H (9-20) mg/dL Creatinine 1.79 H (0.66-1.25) mg/dL Glucose 116 H (74-99) mg/dL POC Glucose (mg/dL) 143 H (70-110) mg/dL Total Protein 5.4 L (6.3-8.2) g/dL Albumin 2.8 L (3.5-5.0) g/dL 09/25/23 09/25/23 09/26/23 Range/Units 16:38 20:13 06:13 RBC (4.30-5.90) m/uL Hgb (13.0-17.5) gm/dL Hct (39.0-53.0) % Sodium (137-145) mmol/L BUN (9-20) mg/dL Creatinine (0.66-1.25) mg/dL Glucose (74-99) mg/dL POC Glucose (mg/dL) 169 H 227 H 166 H (70-110) mg/dL Total Protein (6.3-8.2) g/dL Albumin (3.5-5.0) g/dL
[2023-09-26 16:18] LABS: Glucose,Whole Blood 198 mg/dL (70-110)
[2023-09-26 20:06] LABS: Glucose,Whole Blood 165 mg/dL (70-110)
[2023-09-27 06:11] LABS: Glucose,Whole Blood 138 mg/dL (70-110)
[2023-09-27 10:45] LABS: Basophils % (A) 0 %; Eosinophils # (A) 0.1 k/uL (0-0.7); Eosinophils % (A) 1 %; HGB 10.3 gm/dL (13.0-17.5); Lymphocytes # (A) 1.1 k/uL (1.0-4.8); Lymphocytes % (A) 24 %; MCH 29.1 pg (25.0-35.0); MCHC 32.1 g/dL (31.0-37.0); MCV 90.6 fL (80.0-100.0); Mean Platelet Volume 10.2; Monocytes # (A) 0.3 k/uL (0-1.0); Monocytes % (A) 7 %; Neutrophils % (A) 65 %; Platelet Count 177 k/uL (150-450); RBC 3.53 m/uL (4.30-5.90); RDW 15.1 % (11.5-15.5); WBC 4.6 k/uL (3.8-10.6)
[2023-09-27 11:03] LABS: ALT 16 U/L (4-49); AST 23 U/L (17-59); African American GFR (CKD) 60 (>60 ml/min/1.73 sqM); Alkaline Phosphatase 61 U/L (38-126); Anion Gap 5 mmol/L; Blood Urea Nitrogen 47 mg/dL (9-20); Calcium 8.9 mg/dL (8.4-10.2); Carbon Dioxide 25 mmol/L (22-30); Chloride 107 mmol/L (98-107); Glucose 122 mg/dL (74-99); Non-African American GFR(CKD) 52 (>60 ml/min/1.73 sqM); Potassium 4.8 mmol/L (3.5-5.1); Sodium 137 mmol/L (137-145); Total Bilirubin 0.5 mg/dL (0.2-1.3); Total Protein 5.8 g/dL (6.3-8.2)
[2023-09-27 11:42] LABS: Glucose,Whole Blood 120 mg/dL (70-110)
--- NOTE | 2023-09-27 12:57 | P.PN ---
Subjective Progress Note Date: 09/27/23 patient is 77-year-old gentleman with past medical history significant for peripheral vascular disease involving lower extremities with history of femorofemoral bypass graft who was sent in to the ER from vascular surgery office for acute left limb ischemia. Patient has been having coldness of his left foot and decreased sensations for the last 2 days. Patient was following up at vascular surgery office where they did an ultrasound and it was suspicious of occlusion of the graft. Patient was immediately told to come to the ER Initial lab work done in the ER showed WBC 4.2, hemoglobin 14.3, platelet count 152, INR 0.9, sodium 130, potassium 4.4, BUN 24, creatinine 1.09, glucose 370 CT angio thoracic abdominal aorta with runoff showed loss of opacification involving the patient's tomorrowfemoral graft with minimal contrast opacification in the distal collateral vessels no on the left lower extremity concerning for graft occlusion Patient admitted to internal medicine service 09/23. Patient seen and examined. S/p Open thrombectomy of femorofemoral bypass and femoral to popliteal bypass, Revision of femoral to popliteal artery bypass with right femoral to left tibioperoneal trunk bypass with CryoVein graft and 4 compartment fasciotomy. Complaining of pain in his left leg. Discussed with him regarding the need for him to go to rehab, patient is open to the idea of rehab. 09/24. Patient seen and examined laying comfortably in the bed. Blood work done today showed WBC 6.3, hemoglobin 9.1, sodium 132, potassium 4.4, BUN 46, creatinine 1.79. Patient being scheduled for closure of fasciotomy site on 09/27 09/25. Patient seen and examined. No acute issues overnight 09/26. Patient seen and examined. No acute issues overnight. Patient is scheduled for fasciotomy site on 09/27 REVIEW OF SYSTEMS: CONSTITUTIONAL: No fever, no malaise,. CARDIOVASCULAR: No chest pain, no palpitations, no syncope. PULMONARY: No shortness of breath, no cough, GASTROINTESTINAL: No diarrhea, no nausea, no vomiting, no abdominal pain. NEUROLOGICAL: No headaches, no weakness, PHYSICAL EXAMINATION: GENERAL: The patient is alert and oriented x3, not in any acute distress. Well developed, well nourished. HEENT: Pupils are round and equally reacting to light. EOMI. No scleral icterus. No conjunctival pallor. Normocephalic, atraumatic. No pharyngeal erythema. No thyromegaly. CARDIOVASCULAR: S1 and S2 present. No murmurs, rubs, or gallops. PULMONARY: Chest is clear to auscultation, no wheezing or crackles. ABDOMEN: Soft, nontender, nondistended, normoactive bowel sounds. No palpable organomegaly. MUSCULOSKELETAL: No joint swelling or deformity. EXTREMITIES: Left leg dressing seen NEUROLOGICAL: Gross neurological examination did not reveal any focal deficits. SKIN: No rashes. Assessment and plan Acute left limb ischemia Femoral to femoral graft occlusion Hyponatremia Hypertension Insulin-dependent diabetes mellitus, HbA1c level on 09/23 is 11.7 Hyperlipidemia History of peripheral arterial disease status post fem-femoral bypass and left fem-popliteal bypass] Monitor vital signs Monitor CBC Monitor CMP Continue telemetry monitoring S/p Open thrombectomy of femorofemoral bypass and femoral to popliteal bypass, Revision of femoral to popliteal artery bypass with right femoral to left tibioperoneal trunk bypass with CryoVein graft and 4 compartment fasciotomy Continue wound care pharmacy dose heparin was discontinued and patient was placed back on Xarelto Continue Lipitor Continue losartan and atenolol Monitor blood sugar levels, continue current insulin regimen, last HbA1c level was 11.7 on 09/13 PT and OT recommend rehab Vascular surgery following,Closure of fasciotomy site tentatively scheduled for 09/28/2023 Labs and medication were reviewed.. Continue same treatment. Continue with symptomatic treatment. Resume home medication. Monitor labs and vitals. DVT and GI prophylaxis. Further recommendations as per clinical course of the patient Dictation was produced using [employer] dictation software. please excuse any grammatical, word or spelling errors. Objective - Vital Signs Vital signs: Vital Signs Temp 98.4 F 09/27/23 12:05 Pulse 55 L 09/27/23 12:05 Resp 18 09/27/23 12:05 BP 115/59 09/27/23 12:05 Pulse Ox 95 09/27/23 12:05 FiO2 Intake & Output 09/26/23 09/27/23 09/27/23 18:59 06:59 18:59 Intake Total 1056 20 368 Output Total 500 1790 Balance 556 -1770 368 Intake: IV 40 20 10 Invasive Line 1 20 Invasive Line 3 20 20 10 Oral 1016 358 Output: Urine 500 1790 Other: Voiding Method Urinal Urinal Urinal # Voids 1 # Bowel Movements 1 - Labs CBC & Chem 7: 09/27/23 10:32 09/27/23 10:32 Labs: Abnormal Lab Results - Last 24 Hours (Table) 09/26/23 09/26/23 09/27/23 Range/Units 16:16 20:04 06:10 RBC (4.30-5.90) m/uL Hgb (13.0-17.5) gm/dL Hct (39.0-53.0) % BUN (9-20) mg/dL Creatinine (0.66-1.25) mg/dL Glucose (74-99) mg/dL POC Glucose (mg/dL) 198 H 165 H 138 H (70-110) mg/dL Total Protein (6.3-8.2) g/dL Albumin (3.5-5.0) g/dL 09/27/23 09/27/23 09/27/23 Range/Units 10:32 10:32 11:41 RBC 3.53 L (4.30-5.90) m/uL Hgb 10.3 L (13.0-17.5) gm/dL Hct 32.0 L (39.0-53.0) % BUN 47 H (9-20) mg/dL Creatinine 1.33 H (0.66-1.25) mg/dL Glucose 122 H (74-99) mg/dL POC Glucose (mg/dL) 120 H (70-110) mg/dL Total Protein 5.8 L (6.3-8.2) g/dL Albumin 3.0 L (3.5-5.0) g/dL
[2023-09-27 16:48] LABS: Glucose,Whole Blood 235 mg/dL (70-110)
[2023-09-27 20:12] LABS: Glucose,Whole Blood 260 mg/dL (70-110)
[2023-09-28 06:14] LABS: Glucose,Whole Blood 106 mg/dL (70-110)
[2023-09-28 11:40] LABS: Glucose,Whole Blood 98 mg/dL (70-110)
[2023-09-28] MEDS: LACTATED RINGERS 1,000 ML IV ONE (12:33)
[2023-09-28] MEDS ORDERED: ONDANSETRON 4 MG/2 ML VIAL ONE (12:59)
[2023-09-28] MEDS: ONDANSETRON 4 MG/2 ML VIAL IVP ONE (13:06)
[2023-09-28] MEDS: DEXAMETHASONE SOD PHOSPHATE 4 MG/ML 1 ML VIAL IVP ONE (13:07)
[2023-09-28] MEDS: FAMOTIDINE 20 MG/2 ML VIAL IVP ONE (13:07)
[2023-09-28 13:08] LABS: Glucose,Whole Blood 88 mg/dL (70-110)
[2023-09-28] MEDS ORDERED: MIDAZOLAM 2 MG/2 ML VIAL ONE (14:54)
[2023-09-28] MEDS ORDERED: LIDOCAINE 1% INJ 10MG/ML (20 ML MDV) ONE (14:54)
[2023-09-28] MEDS ORDERED: fentaNYL (PF) 50 MCG/ML 2 ML AMP ONE (14:54)
[2023-09-28] MEDS ORDERED: ePHEDrine 50 MG/ML 1 ML VIAL ONE (14:54)
[2023-09-28] MEDS ORDERED: PROPOFOL 10 MG/ML 20 ML VIAL IV ONE (14:54)
[2023-09-28 16:10] LABS: Glucose,Whole Blood 116 mg/dL (70-110)
--- NOTE | 2023-09-28 16:12 | P.OP ---
Date of Procedure: 09/28/23 Preoperative Diagnosis: Critical limb ischemia left lower extremity with previous fasciotomy Postoperative Diagnosis: Same Procedure(s) Performed: Fasciotomy incision site closure Anesthesia: DANTEA Surgeon: Meliton Crane Estimated Blood Loss (ml): 5 Pathology: none sent Condition: stable Disposition: PACU Indications for Procedure: 77-year-old gentleman with history of critical limb ischemia of the left lower extremity who underwent femorofemoral, Fem- below-knee bypass revision and 4 compartment fasciotomy presents back to the operating room for closure of his fasciotomy sites. Description of Procedure: After written and informed consent was obtained for the patient and all risk, benefits and complications were described the patient was brought to the operative suite and laid in supine position. The area of the left leg was prepped and draped in usual sterile fashion after appropriate anesthetic was performed per the anesthesiologist. A timeout was performed normal fashion and antibiotics were administered prior to operation. The existing kole were removed from the lower leg and the leg/wounds were irrigated with Betadine solution and scrubbed. There was no purulent drainage noted. The muscle tissue and the compartments were twitching well without any signs of ischemia. The medial incision was then reapproximated easily with kole. Due to the tension on the anterior aspect of the lower leg the skin was reapproximated with nylon suture in a vertical mattress fashion. The area was then cleansed and dressings were placed. The patient tolerated the procedure well and was sent to PACU for recovery.
[2023-09-28 20:11] LABS: Glucose,Whole Blood 444 mg/dL (70-110)
[2023-09-28] MEDS: INSULIN ASPART (NovoLOG) 100 UNIT/ML VIAL SQ ONE (21:07)
[2023-09-28] MEDS: MELATONIN 5 MG TABLET PO PRN (23:28)
[2023-09-29 06:12] LABS: Glucose,Whole Blood 281 mg/dL (70-110)
--- NOTE | 2023-09-29 09:44 | P.PN ---
Subjective Progress Note Date: 09/29/23 Principal diagnosis: Left lower extremity acute ischemia Patient is seen and examined today as a follow-up. Yesterday he underwent fasciotomy closure. He states he has no pain in his left lower extremity. He is without any acute changes. He has been afebrile. Denies any shortness of breath or chest pain, no abdominal pain, nausea or vomiting. Denies any fevers or chills. Objective - Vital Signs Vital signs: Vital Signs Temp 97.6 F 09/29/23 08:00 Pulse 59 L 09/29/23 08:00 Resp 16 09/29/23 08:00 BP 111/52 09/29/23 08:00 Pulse Ox 97 09/29/23 08:00 FiO2 Intake & Output 09/28/23 09/29/23 09/29/23 18:59 06:59 18:59 Intake Total 600 Output Total 1085 1000 Balance -485 -1000 Intake: IV 600 Output: Urine 1075 1000 Estimated Blood Loss 10 Other: Voiding Method Urinal Urinal - Exam General appearance: The patient is alert, oriented, appears in no acute distress. HET: Head is normocephalic and atraumatic. Pupils are equal and reactive. Neck: Supple. Heart: Regular. Lungs: Equal expansion, normal respiratory effort. Abdomen: Soft, nontender, nondistended. Extremities: Left lower extremity with PT Doppler signal, bypass with Doppler signal. Left groin/thigh with Prevena wound VAC in place. Medial aspect of left lower extremity incision well-approximated with kole, lateral aspect well-approximated with sutures. Surrounding tissue pink, warm and dry. Sensorimotor intact. Neurological: No focal deficits. - Labs CBC & Chem 7: 09/27/23 10:32 09/27/23 10:32 Labs: Abnormal Lab Results - Last 24 Hours (Table) 09/28/23 09/28/23 09/29/23 Range/Units 16:08 20:10 06:11 POC Glucose (mg/dL) 116 H 444 H 281 H (70-110) mg/dL Assessment and Plan Assessment: 1. Postop day #6 for open thrombectomy femoral-femoral bypass and femoral to popliteal bypass, revision of femoral to popliteal artery bypass with right femoral to left tibioperoneal trunk bypass with CryoVein graft and 4 compartment fasciotomy 2. Postop day #1 for fasciotomy closure of the left lower extremity 3. Critical limb ischemia left lower extremity with acute thrombosis of femoral-femoral and left femoral-popliteal artery bypass 4. History of peripheral arterial disease status post fem-femoral bypass and left fem-popliteal bypass 5. Diabetes mellitus 6. Hypertension 7. Hyperlipidemia Plan: 1. Continue Xarelto 2. Heart healthy diet 3. Daily dressing change to left lower extremity fasciotomy with Adaptic, 4 x 4, Kerlix 4. Encourage ambulation 5. Prevena dressing can be removed today or tomorrow 6. Discharge instructions reviewed with patient. Follow-up with Dr. Crane in 2 weeks. Mr. Jeff is cleared by vascular surgery for discharge Thank you for this consultation. The impression and plan of care has been dictated as directed. I performed a history and examination of this patient, discussed the same with the dictator. I agree with the dictator's note ,documented as a scribe. Any additional findings or plans will be noted.
[2023-09-29 11:50] LABS: Glucose,Whole Blood 261 mg/dL (70-110)
--- NOTE | 2023-09-29 15:12 | P.PN ---
Progress Note - Text Progress Note Date: 09/28/23 patient is 77-year-old gentleman with past medical history significant for peripheral vascular disease involving lower extremities with history of femorofemoral bypass graft who was sent in to the ER from vascular surgery office for acute left limb ischemia. Patient has been having coldness of his left foot and decreased sensations for the last 2 days. Patient was following up at vascular surgery office where they did an ultrasound and it was suspicious of occlusion of the graft. Patient was immediately told to come to the ER Initial lab work done in the ER showed WBC 4.2, hemoglobin 14.3, platelet count 152, INR 0.9, sodium 130, potassium 4.4, BUN 24, creatinine 1.09, glucose 370 CT angio thoracic abdominal aorta with runoff showed loss of opacification involving the patient's tomorrowfemoral graft with minimal contrast opacification in the distal collateral vessels no on the left lower extremity concerning for graft occlusion Patient admitted to internal medicine service 09/23. Patient seen and examined. S/p Open thrombectomy of femorofemoral bypass and femoral to popliteal bypass, Revision of femoral to popliteal artery bypass with right femoral to left tibioperoneal trunk bypass with CryoVein graft and 4 compartment fasciotomy. Complaining of pain in his left leg. Discussed with him regarding the need for him to go to rehab, patient is open to the idea of rehab. 09/24. Patient seen and examined laying comfortably in the bed. Blood work done today showed WBC 6.3, hemoglobin 9.1, sodium 132, potassium 4.4, BUN 46, creatinine 1.79. Patient being scheduled for closure of fasciotomy site on 09/27 09/25. Patient seen and examined. No acute issues overnight 09/26. Patient seen and examined. No acute issues overnight. Patient is scheduled for fasciotomy site on 09/27September 27: Patient has undergone fasciotomy incision site closure. Because of critical limb ischemia left lower extremity. By Dr. Crane. Postprocedure patient has pain in the leg. No nausea vomiting. Did tolerate his supper. No chest pain. Active Medications Hydrocodone Bitart/Acetaminophen (Hydrocodone/Apap 5-325mg 1 Each Tab) 1 each PO Q6HR PRN PRN Reason: Pain Last Admin: 09/28/23 23:00 Dose: 1 each Aspirin (Aspirin 81 Mg) 81 mg PO DAILY [facility] Last Admin: 09/28/23 09:28 Dose: 81 mg Atenolol (Atenolol 50 Mg Tab) 100 mg PO DAILY [facility] Last Admin: 09/28/23 09:27 Dose: 100 mg Atorvastatin Calcium (Atorvastatin 40 Mg Tab) 40 mg PO DAILY [facility] Last Admin: 09/28/23 09:28 Dose: 40 mg Calcium Carbonate/Glycine (Calcium Carbonate 500 Mg Chewable) 500 mg PO TID PRN PRN Reason: Heartburn Last Admin: 09/24/23 20:27 Dose: 500 mg Dapagliflozin (Dapagliflozin Propanediol 10 Mg Tablet) 10 mg PO DAILY [facility] Last Admin: 09/28/23 09:28 Dose: 10 mg Dextrose/Water (Dextrose 50% Syringe 50 Ml) 25 ml IVP PER PROTOCOL PRN; Protocol PRN Reason: Hypoglycemia Dextrose/Water (Dextrose 50% Syringe 50 Ml) 50 ml IVP PER PROTOCOL PRN; Protocol PRN Reason: Hypoglycemia Escitalopram Oxalate (Escitalopram 20 Mg Tab) 20 mg PO DAILY [facility] Last Admin: 09/28/23 09:28 Dose: 20 mg Fenofibrate (Fenofibrate 160 Mg Tab) 160 mg PO DAILY [facility] Last Admin: 09/28/23 09:28 Dose: 160 mg Hydromorphone HCl (Hydromorphone 0.5 Mg/0.5 Ml Syringe) 0.5 mg IVP Q6HR PRN PRN Reason: Pain Last Admin: 09/25/23 03:30 Dose: 0.5 mg Insulin Aspart (Insulin Aspart (Novolog) 100 Unit/Ml Vial) 10 unit SQ TID- W/MEALS [facility] Last Admin: 09/28/23 16:22 Dose: Not Given Insulin Aspart (Insulin Aspart (Novolog) 100 Unit/Ml Vial) 0 unit SQ ACHS [facility]; Protocol Last Admin: 09/28/23 20:35 Dose: Not Given Insulin Detemir (Insulin Detemir (Levemir) 100 Unit/Ml Syr) 40 unit SQ HS [facility] Last Admin: 09/28/23 21:07 Dose: 40 unit Losartan Potassium (Losartan 50 Mg Tab) 100 mg PO DAILY [facility] Last Admin: 09/28/23 09:28 Dose: 100 mg Melatonin (Melatonin 5 Mg Tablet) 5 mg PO HS PRN PRN Reason: insomnia Last Admin: 09/28/23 23:28 Dose: 5 mg Multivitamins (Multivitamins, Thera 1 Each Tab) 1 each PO DAILY [facility] Last Admin: 09/28/23 09:28 Dose: 1 each Multivitamins/Minerals (Vit A,C & J-Joyfqq-Zhncwxve 1 Each Tab) 1 each PO HS [facility] Last Admin: 09/28/23 21:07 Dose: 1 each Naloxone HCl (Naloxone 0.4 Mg/Ml 1 Ml Vial) 0.2 mg IV Q2M PRN PRN Reason: Opioid Reversal Non-Formulary Medication ([place]-3/Dha/Epa/Fish Oil [Fish Oil 1,000 Mg Softgel]) 3 cap PO HS [facility] Last Admin: 09/28/23 21:04 Dose: Not Given Pantoprazole Sodium (Pantoprazole 40 Mg Tablet) 40 mg PO DAILY [facility] Last Admin: 09/28/23 09:28 Dose: 40 mg Rivaroxaban (Rivaroxaban 15 Mg Tab) 15 mg PO DAILY [facility]; Protocol Last Admin: 09/28/23 17:31 Dose: 15 mg Vitamin E (Vitamin E (Dl,Tocopheryl Acet) 400 Unit (180 Mg) Cap) 400 unit PO DAILY [facility] Last Admin: 09/28/23 09:28 Dose: 400 unit On examination: VITAL SIGNS: [98.2, 69, 16, 139 x 76, 95% room air] GENERAL APPEARANCE: Average build. Lying in bed, not in distress. HEENT: Normal external appearance of nose and ear. Oral cavity normal EYES: Pupils equal. Conjunctiva normal. NECK: JVD not raised. Mass not palpable. RESPIRATORY: Respiratory effort normal. Lungs clear to auscultation. CARDIOVASCULAR: First and second sounds normal. No edema. ABDOMEN: Soft. Liver and spleen not palpable. No tenderness. No mass palpable. PSYCHIATRY: Alert and oriented x3. Mood and affect normal. EXTREMITY: Left lower extremity dressing over access site. Some tenderness INVESTIGATIONS, reviewed in the clinical context: September 27, 2023: White count 4.6 hemoglobin 10.3 platelets 137 potassium 4.8 BUN 47 creatinine 1.33 Assessment and plan Acute left limb ischemia Femoral to femoral graft occlusion Hyponatremia-corrected Essential hypertension gerd Depression Insulin-dependent diabetes mellitus, HbA1c level on 09/23 is 11.7 Hyperlipidemia peripheral arterial disease status post fem-femoral bypass and left fem- popliteal bypass] S/p Open thrombectomy of femorofemoral bypass and femoral to popliteal bypass, Revision of femoral to popliteal artery bypass with right femoral to left tibioperoneal trunk bypass with CryoVein graft and 4 compartment fasciotomy. September 27: Critical limb ischemia left lower extremity with previous fasciotomy. Patient underwent incision site closure by Dr. Crane. -Acute kidney injury likely ATN, multifactorial: Improving Creatinine went up from 0.87 upto 1.79. Now coming down. Discussed with patient. Continue current medication. Follow-up with vascular.
--- NOTE | 2023-09-29 15:15 | P.DS ---
Providers Date of admission: 09/22/23 20:23 Expected date of discharge: 09/29/23 Attending physician: Harjinder Banegas Consults: 09/22/23 19:11 Consult Physician Routine Consulting Provider: Meliton Crane Consult Reason/Comments: ischemic limb Do you want consulting provider notified?: Already Contacted Primary care physician: Otis [facility] Hospital Course: patient is 77-year-old gentleman with past medical history significant for peripheral vascular disease involving lower extremities with history of femorofemoral bypass graft who was sent in to the ER from vascular surgery office for acute left limb ischemia. Patient has been having coldness of his left foot and decreased sensations for the last 2 days. Patient was following up at vascular surgery office where they did an ultrasound and it was suspicious of occlusion of the graft. Patient was immediately told to come to the ER Initial lab work done in the ER showed WBC 4.2, hemoglobin 14.3, platelet count 152, INR 0.9, sodium 130, potassium 4.4, BUN 24, creatinine 1.09, glucose 370 CT angio thoracic abdominal aorta with runoff showed loss of opacification involving the patient's tomorrowfemoral graft with minimal contrast opacification in the distal collateral vessels no on the left lower extremity concerning for graft occlusion Patient admitted to internal medicine service 09/23. Patient seen and examined. S/p Open thrombectomy of femorofemoral bypass and femoral to popliteal bypass, Revision of femoral to popliteal artery bypass with right femoral to left tibioperoneal trunk bypass with CryoVein graft and 4 compartment fasciotomy. Complaining of pain in his left leg. Discussed with him regarding the need for him to go to rehab, patient is open to the idea of rehab. 09/24. Patient seen and examined laying comfortably in the bed. Blood work done today showed WBC 6.3, hemoglobin 9.1, sodium 132, potassium 4.4, BUN 46, creatinine 1.79. Patient being scheduled for closure of fasciotomy site on 09/27 09/25. Patient seen and examined. No acute issues overnight 09/26. Patient seen and examined. No acute issues overnight. Patient is scheduled for fasciotomy site on 09/27September 27: Patient has undergone fasciotomy incision site closure. Because of critical limb ischemia left lower extremity. By Dr. Crane. Postprocedure patient has pain in the leg. No nausea vomiting. Did tolerate his supper. No chest pain. September 28: Pain is better. Prescribed [place] per vascular for discharge. Xarelto increased to 20 mg. Medications reviewed. Discussed with patient. Eating well. Discussed with social work manager. Patient will be going to [place] for rehab. Wound care and follow-up per vascular team. Discussion and discharge planning more than 35 minutes On examination: VITAL SIGNS: [97.8, 62, 16, 130 x 58, 97% room air] GENERAL APPEARANCE: Up in chair, comfortable. HEENT: Normal external appearance of nose and ear. Oral cavity normal EYES: Pupils equal. Conjunctiva normal. NECK: JVD not raised. Mass not palpable. RESPIRATORY: Respiratory effort normal. Lungs clear to auscultation. CARDIOVASCULAR: First and second sounds normal. No edema. ABDOMEN: Soft. Liver and spleen not palpable. No tenderness. No mass palpable. PSYCHIATRY: Alert and oriented x3. Mood and affect normal. EXTREMITY: Left lower extremity dressing over access site. Some tenderness INVESTIGATIONS, reviewed in the clinical context: September 27, 2023: White count 4.6 hemoglobin 10.3 platelets 137 potassium 4.8 BUN 47 creatinine 1.33 Assessment and plan Acute left limb ischemia Femoral to femoral graft occlusion Hyponatremia-corrected Essential hypertension gerd Depression Insulin-dependent diabetes mellitus, HbA1c level on 09/23 is 11.7 Hyperlipidemia peripheral arterial disease status post fem-femoral bypass and left fem- popliteal bypass] S/p Open thrombectomy of femorofemoral bypass and femoral to popliteal bypass, Revision of femoral to popliteal artery bypass with right femoral to left tibioperoneal trunk bypass with CryoVein graft and 4 compartment fasciotomy. September 27: Critical limb ischemia left lower extremity with previous fasciotomy. Patient underwent incision site closure by Dr. Crane. -Acute kidney injury likely ATN, multifactorial: Improving Creatinine went up from 0.87 upto 1.79. Now coming down. Disposition: [facility] bed Labs: CBC BMP: 3 days Plan - Discharge Summary Discharge Rx Participant: Yes New Discharge Prescriptions: New HYDROcodone/APAP 5-325MG [[place] 5-325] 1 each PO Q6HR PRN #12 tab PRN Reason: Pain Scale 7 To 10 Rivaroxaban [Xarelto] 20 mg PO W/SUPPER #30 tab Continue Multivitamins, Thera [Multivitamin (formulary)] 1 tab PO DAILY Omeprazole Magnesium [PriLOSEC OTC] 20 mg PO DAILY Empagliflozin [Jardiance] 25 mg PO DAILY atenoloL 100 mg PO DAILY Atorvastatin [Lipitor] 40 mg PO DAILY Fenofibric Acid (Choline) [Trilipix] 135 mg PO DAILY Insulin Aspart [NovoLOG Flexpen] 10 units SQ TID-W/MEALS Mv-Mn/Om3/Dha/Epa/Fish/Lut/Eligio [Ocuvite Adult 50 Plus Softgel] 1 tab PO HS Escitalopram Oxalate [Lexapro] 20 mg PO DAILY Losartan Potassium [Cozaar] 100 mg PO DAILY Insulin Degludec [Tresiba] 40 units SQ HS Aspirin 81 mg PO DAILY tab Vitamin E (Dl,Tocopheryl Acet) [Vitamin E (400 Iu = 180 mg)] 400 unit PO DAILY Discontinued Rivaroxaban [Xarelto] 15 mg PO DAILY No Action Ginkgo Biloba [place] Extract [Ginkgo Biloba] 125 mg PO DAILY [place]-3/Dha/Epa/Fish Oil [Fish Oil 1,000 mg Softgel] 3 cap PO HS Discharge Medication List Atorvastatin [Lipitor] 40 mg PO DAILY 10/17/22 [History] Empagliflozin [Jardiance] 25 mg PO DAILY 10/17/22 [History] Escitalopram Oxalate [Lexapro] 20 mg PO DAILY 10/17/22 [History] Fenofibric Acid (Choline) [Trilipix] 135 mg PO DAILY 10/17/22 [History] Insulin Aspart [NovoLOG Flexpen] 10 units SQ TID-W/MEALS 10/17/22 [History] Losartan Potassium [Cozaar] 100 mg PO DAILY 10/17/22 [History] Multivitamins, Thera [Multivitamin (formulary)] 1 tab PO DAILY 10/17/22 [History] Mv-Mn/Om3/Dha/Epa/Fish/Lut/Eligio [Ocuvite Adult 50 Plus Softgel] 1 tab PO HS 10/17/22 [History] [place]-3/Dha/Epa/Fish Oil [Fish Oil 1,000 mg Softgel] 3 cap PO HS 10/17/22 [History] Omeprazole Magnesium [PriLOSEC OTC] 20 mg PO DAILY 10/17/22 [History] atenoloL 100 mg PO DAILY 10/17/22 [History] Insulin Degludec [Tresiba] 40 units SQ HS 07/06/23 [History] Aspirin 81 mg PO DAILY tab 07/11/23 [Rx] Ginkgo Biloba [place] Extract [Ginkgo Biloba] 125 mg PO DAILY 09/22/23 [History] Vitamin E (Dl,Tocopheryl Acet) [Vitamin E (400 Iu = 180 mg)] 400 unit PO DAILY 09/22/23 [History] HYDROcodone/APAP 5-325MG [[place] 5-325] 1 each PO Q6HR PRN #12 tab 09/29/23 [Rx] Rivaroxaban [Xarelto] 20 mg PO W/SUPPER #30 tab 09/29/23 [Rx] Follow up Appointment(s)/Referral(s): Meliton Crane DO [STAFF PHYSICIAN] - 10/13/23 11:00 am Otis Jones MD [Primary Care Provider] - 1-2 days Patient Instructions/Handouts: Femoropopliteal Bypass (DC) Activity/Diet/Wound Care/Special Instructions: Activity as tolerated. Encourage ambulation. No driving for 2 weeks Avoid heavy lifting greater than 10 lbs , pushing, pulling, straining, and limit flights of stairs for 2 weeks ok to shower tomorrow but no baths, pools, soaking in tubs until cleared by surgeon to avoid risk of infection. signs of infection ie: fever, rash, drainage from incision, swelling contact doctor or return to ER immediately. Heavy bleeding from incision site apply firm direct pressure and return to ER. Do not attempt to drive self. low sodium/low fat diet Apply dressing to Left LLE fasciotomy site only if draining with dressing daily to left lower extremity Adaptic, 4 x 4 and Kerlix, otherwise can keep open to air
[2023-09-29 15:45] VITALS: BP 131/74; PULSE 52; RESP 18; TEMP 98.3
[2023-09-30] MEDS ORDERED: RIVAROXABAN 20 MG TAB PO SCH (17:30)
--- NOTE | 2023-10-01 13:08 | CDI ---
Documentation Clarification Form Date: 10/01/2023 12:53:26 PM From: Maddi Brooke Phone: Admit Date: 09/22/2023 08:23:00 PM Patient Name: Kelby Jeff Visit Number: [id number] Discharge Date: 09/29/2023 03:53:00 PM ATTENTION: The Clinical Documentation Specialists (CDI) and [facility] Coding Staff appreciate your assistance in clarifying documentation. Please respond to the clarification below the line at the bottom and electronically sign. The CDI & [facility] Coding staff will review the response and follow-up if needed. Please note: Queries are made part of the Legal Health Record. If you have any questions, please contact the author of this message via ITS. Dr. Harjinder Banegas Your patient has [id number] 11.7per Progress Note 09/23. Please clarify if there is an additional diagnosis and/or clinical significance related to this result. History/Risk Factors: 77yo M, DMII w LLE critical limb ischemiaw acutethrombosisof fem-fem and left fem-pop arterybypass, HTN, HLD, anticoag noncompliance, former smoker Clinical indicators: Glucose: 09/21 370 09/23 179-260 09/24 116-211 09/25 116- 169 Treatment: Monitor blood sugar levels,continue current insulin regimen Home Medications:Empagliflozin 25 mg PO, Insulin Aspart [Novolog] 10 units SQ, Insulin Degludec [Tresiba] 40 units SQ Is there an additional diagnosis and/or clinical significance related to the above result? [ + ] Type 2 diabetes mellitus with [ ] Result is not clinically significant (no additional diagnosis) [ ] Other, please specify [ ] Unable to determine (Template Last Reviewed: July 2020) MTDD
== END 2023-09-29 15:53 | disposition home or self-care (01) | DRG 252 ==
LOC: EC 15:05 → 3SCARD 20:23
PROVIDERS: ADMIT Hospitalist; ATTEND Hospitalist
PROC: 0KNT0ZZ Release Left Lower Leg Muscle, Open Approach (ICD-10-PCS; 2023-09-23)
PROC: 0KNT0ZZ Release Left Lower Leg Muscle, Open Approach (ICD-10-PCS; 2023-09-23)
PROC: 0KNT0ZZ Release Left Lower Leg Muscle, Open Approach (ICD-10-PCS; 2023-09-23)
PROC: 0KNT0ZZ Release Left Lower Leg Muscle, Open Approach (ICD-10-PCS; 2023-09-23)
PROC: 04WY0JZ Revision of Synthetic Substitute in Lower Artery, Open Approach (ICD-10-PCS; 2023-09-23)
PROC: 04CL0ZZ Extirpation of Matter from Left Femoral Artery, Open Approach (ICD-10-PCS; principal; 2023-09-23 13:45)
PROC: 0YQ80ZZ Repair Left Femoral Region, Open Approach (ICD-10-PCS; 2023-09-28)
PROC: 0YQ80ZZ Repair Left Femoral Region, Open Approach (ICD-10-PCS; 2023-09-28)
PROC: 0YQ80ZZ Repair Left Femoral Region, Open Approach (ICD-10-PCS; 2023-09-28)
PROC: 0YQ80ZZ Repair Left Femoral Region, Open Approach (ICD-10-PCS; 2023-09-28)
DX: T82.868A Thrombosis due to vascular prosthetic devices, implants and grafts, initial encounter (principal); N17.0 Acute kidney failure with tubular necrosis; E87.1 Hypo-osmolality and hyponatremia; I82.512 Chronic embolism and thrombosis of left femoral vein; E11.51 Type 2 diabetes mellitus with diabetic peripheral angiopathy without gangrene; I70.722 Atherosclerosis of other type of bypass graft(s) of the extremities with rest pain, left leg; I70.211 Atherosclerosis of native arteries of extremities with intermittent claudication, right leg; E11.65 Type 2 diabetes mellitus with hyperglycemia; I70.712 Atherosclerosis of other type of bypass graft(s) of the extremities with intermittent claudication, left leg; Z79.4 Long term (current) use of insulin; I10 Essential (primary) hypertension; F32.A Depression, unspecified; K21.9 Gastro-esophageal reflux disease without esophagitis; G47.30 Sleep apnea, unspecified; E78.5 Hyperlipidemia, unspecified; T45.516A Underdosing of anticoagulants, initial encounter; Z91.148 Patient's other noncompliance with medication regimen for other reason; Z79.01 Long term (current) use of anticoagulants; Z79.82 Long term (current) use of aspirin; Z79.899 Other long term (current) drug therapy; Z79.84 Long term (current) use of oral hypoglycemic drugs; Z87.891 Personal history of nicotine dependence; Z88.5 Allergy status to narcotic agent; Z88.8 Allergy status to other drugs, medicaments and biological substances; Z85.828 Personal history of other malignant neoplasm of skin; Z85.51 Personal history of malignant neoplasm of bladder
CPT/HCPCS: 36415; 71275; 75635; 80048; 80053; 83036; 85025; 85027; 85610; 85730; 86850; 86900; 86901; 96365; 96366; 99285

== ENCOUNTER → 2024-07-05 | Outpatient (CLI) | payer MEDICARE, OTHER ==
[2024-07-05 13:05] LABS: African American GFR (CKD) 49 (>60 ml/min/1.73 sqM); Blood Urea Nitrogen 39 mg/dL (9-20); Non-African American GFR(CKD) 42 (>60 ml/min/1.73 sqM)
--- NOTE | 2024-07-05 17:21 | CT ---
CTA abdomen with runoff. HISTORY: Atherosclerosis, history of leg stents. Leg pain. COMPARISON: 09/22/2023 and 09/08/2022 TECHNIQUE: Multiple axial images were obtained through the abdomen, pelvis and lower extremities befo re and after the uneventful administration nonionic IV contrast. The exam was performed according to the department CT protocol. 3-D post processing was performed. FINDINGS: Inflow CTA: There are moderate scattered arteriosclerotic calcification of the abdominal aorta and iliac vessels. There is a stent in the origin of the right common iliac artery with a mild stenosis at its proximal aspect. There is a stent in the left external iliac artery which is occluded. Outflow CTA: On the right, there is scattered arteriosclerotic plaque in the right common femoral artery resulting in a severe stenosis. There is an occluded femoral/femoral bypass graft. There is severe multifocal stenoses within the mid and distal right superficial femoral artery. There are multifocal moderate s tenoses within the right popliteal artery. On the left, there is a patent right femoral to left popliteal bypass graft. There is an occluded lef t common femoral and popliteal graft. There is an occluded left profunda femoral stent. Distal to the anastomosis, the left popliteal artery is patent. Runoff CTA: On the right, the anterior tibial artery is occluded in the mid 19. There is two-vessel runoff via th e peroneal and posterior tibial artery. The posterior tibial artery is patent into the foot. On the left, there is two-vessel runoff via the anterior and posterior tibial arteries. The peroneal artery is occluded proximally. Nonvascular CT findings: There are multiple gallstones. There is no chemically involving the solid visceral organs of the upper abdomen. There are no renal calcifications. There are no solid renal masses or hydronephrosis. There is no retroperitoneal adenopathy. The bowel loops are normal in caliber without dilatation or obstruction. No inflammatory changes are identified in the bowel wall or mesentery. There is no free intraperitoneal air or fluid. No pelvic mass or adenopathy. The osseous structures are intact IMPRESSION: 1. Mild inflow disease on the right with a mild stenosis of the proximal aspect of the right common i liac artery stent. 2. Severe inflow disease on the left with an occluded left external iliac artery stent. 3. Severe outflow disease on the right with multiple severe stenoses within the right common and supe rficial femoral artery for moderate outflow disease on the left with occluded femoral popliteal bypas s graft and stent within the left profunda femoral artery. The right common femoral artery to left po pliteal artery bypass is patent. 4. Two-vessel runoff in the lower extremities bilaterally associated above. 5. Cholelithiasis. [facility], , 07/05/2024 5:19 PM
== END | disposition home or self-care (01) ==
LOC: RADCTMAIN 12:07
PROVIDERS: ATTEND Surgery
DX: I70.0 Atherosclerosis of aorta (principal); I70.213 Atherosclerosis of native arteries of extremities with intermittent claudication, bilateral legs; I74.5 Embolism and thrombosis of iliac artery; K80.20 Calculus of gallbladder without cholecystitis without obstruction; T82.898A Other specified complication of vascular prosthetic devices, implants and grafts, initial encounter
CPT/HCPCS: 82565; 84520; 75635; 36415; Q9967

== ENCOUNTER 2024-08-22 09:50 | Day surgery (SDC) | payer MEDICARE, OTHER ==
[2024-08-19 12:46] VITALS: BMI 28.0
[~2024-08-22 09:50] MED LIST changes: +ALPRAZolam 0.25 MG TAB PO PRN; +ALPRAZolam 0.5 MG TAB PO PRN; +ASPIRIN 325 MG TAB PO PRN; +HEPARIN SODIUM,PORCINE (1 ML) 2,500 UNIT in SODIUM CHLORIDE 0.9% 250 ML IRRIGATION PRN; +HEPARIN SODIUM,PORCINE 10,000 UNIT in SODIUM CHLORIDE 0.9% 1,000 ML IRRIGATION PRN; -SODIUM CHLORIDE 0.9% 1,000 ML in EMPTY BAG 1 BAG IV ONE; +ZOLPIDEM 5 MG TAB PO PRN
[2024-08-22] MEDS: IV FLUID CONTINUATION 1,000 ML IV ONE ×2 (10:10→15:15)
[2024-08-22] MEDS: SODIUM CHLORIDE 0.9% 1,000 ML in EMPTY BAG 1 BAG IV ONE (10:10)
[2024-08-22 10:24] VITALS: RESP 16; TEMP 97.9
[2024-08-22 10:26] LABS: Basophils % (A) 0 %; Eosinophils # (A) 0.2 k/uL (0-0.7); Eosinophils % (A) 4 %; HCT 49.9 % (39.0-53.0); HGB 15.9 gm/dL (13.0-17.5); Lymphocytes % (A) 30 %; MCHC 31.8 g/dL (31.0-37.0); MCV 91.2 fL (80.0-100.0); Mean Platelet Volume 9.2; Monocytes # (A) 0.3 k/uL (0-1.0); Monocytes % (A) 5 %; Neutrophils # (A) 4.1 k/uL (1.3-7.7); Neutrophils % (A) 61 %; Platelet Count 194 k/uL (150-450); RBC 5.47 m/uL (4.30-5.90); RDW 14.2 % (11.5-15.5); WBC 6.8 k/uL (3.8-10.6)
[2024-08-22 10:26] LABS: Glucose,Whole Blood 150 mg/dL (70-110)
[2024-08-22 10:40] LABS: African American GFR (CKD) 47 (>60 ml/min/1.73 sqM); Anion Gap 9 mmol/L; Blood Urea Nitrogen 33 mg/dL (9-20); Calcium 9.9 mg/dL (8.4-10.2); Carbon Dioxide 30 mmol/L (22-30); Chloride 99 mmol/L (98-107); Glucose 168 mg/dL (74-99); Non-African American GFR(CKD) 41 (>60 ml/min/1.73 sqM); Sodium 138 mmol/L (137-145)
[2024-08-22] MEDS: diphenhydrAMINE 50 MG/ML 1 ML VIAL IVP ONE (12:03)
[2024-08-22] MEDS: fentaNYL (PF) 50 MCG/ML 2 ML AMP IVP ONE ×2 (12:03→12:49)
[2024-08-22] MEDS: MIDAZOLAM 2 MG/2 ML VIAL IVP ONE (12:03)
[2024-08-22] MEDS: LIDOCAINE 1% INJ 10MG/ML (20 ML MDV) SQ ONE (12:05)
[2024-08-22] MEDS: IOPAMIDOL-370 100ML BTL INJ ONE ×3 (12:38→13:52)
[2024-08-22] MEDS: HEPARIN SODIUM 1,000 UN/ML (10ML VL) IVP ONE (12:45)
[2024-08-22] MEDS: HEPARIN SODIUM (1,000 UNIT/ML) 1,000 UNIT in SODIUM CHLORIDE 0.9% 1,000 ML IRRIGATION ONE (12:56)
[2024-08-22] MEDS ORDERED: ALTEPLASE 2 MG VIAL (CATHFLO) MISCELLANE ONE ×2 (13:26)
[2024-08-22] MEDS: PROTAMINE SULFATE 10 MG/ML 5 ML VIAL IV ONE (13:54)
--- NOTE | 2024-08-22 15:26 | P.OP ---
Date of Procedure: 08/22/24 Description of Procedure: Preoperative diagnosis: Critical limb ischemia, left lower extremity femoral-tibial bypass stenosis Postop diagnosis: Critical limb ischemia with left lower extremity right femoral-left tibial artery bypass occlusion Procedure: Aortogram with bilateral lower extremity runoffs via left brachial artery access under ultrasound guidance Percutaneous transluminal balloon angioplasty of the right femoral anastomosis and in bypass stenosis Selective left lower extremity angiogram third order Percutaneous suction thrombectomy with Inari catheter of the right common femoral artery Surgeon: Royce Anesthesia: Moderate sedation times 117 minutes Estimated blood loss: 5 cc Complications: None Condition: Stable Findings: Aorta: Patent with atherosclerotic disease throughout and no significant stenosis Iliacs: Right common iliac, external iliac and internal iliac arteries are patent with atherosclerotic disease throughout and no significant stenosis. Left common iliac is patent with external iliac occlusion noted at a previous stented segment. Internal iliac artery is diseased with no significant stenosis Femorals: Left femoral artery is completely occluded no flow to the profunda or SFA. Right common femoral artery is patent with atherosclerotic disease thro ughout and calcific area of stenosis just above the bifurcation. Previous existing bypass not visualized and shown to be occluded. Profundus femoris is widely patent without any evidence of significant stenosis. SFA has atherosclerotic disease throughout and significant stenosis at the distal SFA proximal popliteal artery roughly 60% Popliteal: Left popliteal artery is occluded. Right popliteal artery is patent with atherosclerotic disease throughout and multiple areas of stenosis. Tibials: Left tibial peroneal trunk with severe stenosis at the proximal aspect of the bypass and two-vessel takeoff with minimal flow extending to the foot. Operative narrative: After written informed consent was obtained the patient all risks benefits competitions were described the patient is brought to the Account Liaison and laid in a supine position. The area of the left arm was prepped and draped in the usual sterile fashion. Local anesthesia with moderate sedation was performed with continuous pulse ox monitoring and EKG monitoring. Utilizing ultrasound the left brachial artery was visualized and shown to be patent without any significant plaque. Utilizing a multipurpose needle under ultrasound guidance the artery was accessed. Guidewire was placed followed by 5 [place] sheath. 035 Glidewire was then placed into the aorta followed by angled glide catheter. Angiogram was then obtained of the aorta. Catheter was then placed at the right lower extremity common iliac artery. Due to the fact that he had previous right to left femoral-tibial bypass which appeared to be occluded we utilized the angled glide catheter and attempted to access the bypass. The bypass was entered and Glidewire advantage was placed through the bypass into the distal aspect. At this time the 5 [place] sheath was removed and replaced with a long sheath and placed within the distal aorta. Multiple wires were then utilized to get across the distal anastomosis and quick cross catheter was also used and placed within the bypass. Distal angiogram was obtained demonstrating severe disease of the bypass throughout with greater than 90% stenosis at the proximal aspect just proximal to the anastomosis. Distal runoff was two-vessel without significant filling of the foot. Multiple attempts at balloon angioplasty was performed throughout the bypass and no balloon was long enough to get to the distal anastomosis at the tibial vessel. Balloon angioplasty of the proximal aspect was completed with a 5 x 60 balloon and angiogram was obtained demonstrating no significant improvement of the bypass. Once completed there was a piece of plaque that came off into the common femoral artery and due to this a penumbra catheter was placed into the common femoral artery on the right and suction thrombectomy was performed with good resolution of the thrombus. At this point the procedure was concluded and patient will likely require a another bypass or cut down with possible attempt at revascularizing the bypass. All guidewires, catheters and sheaths were removed and pressure was placed for hemostasis. Patient tolerated procedure well was sent to PACU for recovery.
[2024-08-22 15:54] VITALS: PULSE 72
[2024-08-22 16:20] VITALS: BP 152/78
== END 2024-08-22 16:31 | disposition home or self-care (01) ==
LOC: CATHCVL 09:50
PROVIDERS: ATTEND Surgery
DX: T82.858A Stenosis of other vascular prosthetic devices, implants and grafts, initial encounter (principal); T82.868A Thrombosis due to vascular prosthetic devices, implants and grafts, initial encounter; E11.51 Type 2 diabetes mellitus with diabetic peripheral angiopathy without gangrene; I70.223 Atherosclerosis of native arteries of extremities with rest pain, bilateral legs; Z79.84 Long term (current) use of oral hypoglycemic drugs; Z79.01 Long term (current) use of anticoagulants; Z79.85 Long-term (current) use of injectable non-insulin antidiabetic drugs; Z79.899 Other long term (current) drug therapy; Z87.891 Personal history of nicotine dependence; Z86.718 Personal history of other venous thrombosis and embolism; Z88.5 Allergy status to narcotic agent
CPT/HCPCS: 37184; 37224; 75625; 75716; 80048; 85025; C1769 ×5; C1894 ×4; C1725 ×2; C1887; C1757; J2250; J2720; J1200; J2003; J3010; J1644; Q9967